=== PATIENT | female | born 1945 | race Caucasian/White ===

== ENCOUNTER 2021-01-26 14:10 | Inpatient (IN) | payer MEDICARE, OTHER ==
[~2021-01-26] VITALS: Ht 162.6 cm; Wt 41.7 kg
[2021-01-26] MEDS ORDERED: DIVA500T17 PO (15:45)
[2021-01-26] MEDS ORDERED: MEMA10TA PO (16:06)
[2021-01-26] MEDS ORDERED: PHEN100C PO (16:06)
[2021-01-26] MEDS ORDERED: LORA0.5T21 PO (16:06)
[2021-01-26] MEDS ORDERED: DONE10TA7 PO (16:06)
[2021-01-26] MEDS ORDERED: QUET25TA5 PO (16:06)
[2021-01-26] MEDS ORDERED: IBUP400T18 PO (16:06)
[2021-01-26] MEDS ORDERED: HYDR-2769 PO (16:06)
[2021-01-26] MEDS ORDERED: LORazepam 0.5 MG TABLET PO PRN (16:15)
[2021-01-26 16:26] VITALS: BP 131/78
[2021-01-26] MEDS ORDERED: MAG HYDROX/AL HYDROX/SIMETH 30 ML ORAL.SUSP PO PRN (16:30)
[2021-01-26] MEDS ORDERED: METHYL SALICYLATE/MENTHOL TOPICAL OINTMENT 57GM TUBE. TP PRN (16:30)
--- NOTE | 2021-01-26 17:06 | NUR ---
Admission Note with Justification for Admission to [facility] Patient admitted to [facility] for protective oversight for emergency stabilization of acute psychiatric crisis. Pt admitted from: LT Facility Mode of arrival: Secure Transport Accompanied By: EMS Precipitating behaviors that initiated intake and admission: combative, aggressive, not sleeping, verbally abusive, labile mood, wandering, hallucinations. Description of failure of out patient attempts at stabilization in previous setting list behavior and medication trials: Behaviors and assessment findings upon admission: Patient wandering, mumbling incoherent words, unable to be redirected. Plan: Admit for protective oversight for adjustment and stabilization of medications, behaviors and mood. Intense treatment regimen including groups, medication adjustments, therapy, consistent regimen for ADL's, self care, and sleep hygiene. Daily monitoring by Inpatient staff, Psychiatry, and Medical Physician.
[2021-01-26] MEDS: QUEtiapine 25 MG TABLET. PO SCH (19:43)
[2021-01-26] MEDS: DIVALPROEX 125 MG CAP.SPRINK PO SCH (19:44)
[2021-01-26] MEDS: PHENYTOIN SODIUM EXTENDED 100 MG CAPSULE PO SCH (19:44)
[2021-01-26] MEDS: ACETAMINOPHEN 325 MG TABLET PO PRN (19:58)
[2021-01-26] MEDS ORDERED: DIVALPROEX ER 250 MG TAB.ER.24H. PO SCH (21:00)
--- NOTE | 2021-01-26 21:56 | PDOC ---
Exam Note: Tristan Note: Please also refer to the separate dictated note~for this date of service dictated separately.~Patient seen individually. Discussed the patient with Nursing staff reviewed the chart.~Reviewed interim history and current functioning. Reviewed vital signs,~Labs/ Radiology~and current medications noted below. Continue current treatment with the changes noted in the dictated addendum note Assessment: Vital Signs/I&O: Vital Signs Date Time Temp Pulse Resp B/P (MAP) Pulse Ox O2 Delivery O2 Flow Rate FiO2 01/26/21 16:26 98.4 101 20 131/78 (95) 97 Room Air Current Medications: Meds: Current Medications Medications (Trade) Dose Ordered Sig/Rufus Route PRN Reason Start Time Stop Time Status Last Admin Dose Admin Lorazepam (Ativan) 0.5 mg PRN TID PRN PO ANXIETY 01/26/21 16:15 01/26/21 18:01 DC 01/26/21 17:50 Phenytoin Sodium (Dilantin) 100 mg QHS PO 01/26/21 21:00 01/26/21 19:44 Quetiapine Fumarate (SEROquel) 25 mg BID PO 01/26/21 21:00 01/26/21 19:43 Acetaminophen (Tylenol) 650 mg PRN Q6HRS PRN PO MILD PAIN / TEMP > 100.3'F 01/26/21 16:30 01/26/21 19:58 Divalproex Sodium (Depakote Sprinkles) 250 mg BID PO 01/26/21 21:00 01/26/21 19:44 I have reviewed the current psychotropics carefully including drug interactions. Risk benefit ratio favors no change other than as noted in my dictated progress note. Diagnosis: Problems: (1) Major neurocognitive disorder JOSE MIGUEL MCGOWAN MD Jan 26, 2021 21:56
--- NOTE | 2021-01-26 23:01 | NUR ---
Pt sitting in day room when approached. Pt confused, disorganized, and restless; at times tearful and crying. Pt able to express c/o headache for which PRN Tylenol administered. Pt cooperative with assessment and compliant with HS medications administered crushed in yogurt. Pt was sleeping in the day room and therefore staff escorted her to her room to lie down. Once laid down, pt restless and impulsive, standing without assist and trying to climb out of bed. Pt becoming agitated and verbally aggressive with re-direction. PRN Zydis administered and staff at bedside for safety at this time.
[2021-01-26] MEDS: HYDROcodone/APAP 10/325 1 TAB TABLET PO PRN (23:53)
[2021-01-27 06:15] VITALS: BP 118/64
[2021-01-27] MEDS: MEMANTINE 10 MG TABLET. PO SCH (08:35)
[2021-01-27] MEDS: DONEPEZIL HCL 10 MG TABLET PO SCH (08:35)
[2021-01-27] MEDS: DIVALPROEX 125 MG CAP.SPRINK PO SCH ×2 (08:35→19:55)
[2021-01-27] MEDS: QUEtiapine 25 MG TABLET. PO SCH ×2 (08:35→19:55)
--- NOTE | 2021-01-27 10:04 | NUR ---
Patient yelling and agitated during shower. patient given a prn to help calm her down. Patient willing to take medication crushed.
[2021-01-27 11:57] LABS: BASO % 1 % (0-3); EOS % 1 % (0-3); HEMATOCRIT 45.6 % (36.0-47.0); HEMOGLOBIN 14.8 g/dL (12.0-15.5); LYMPH # 0.9 x10^3/uL (1.0-4.8); LYMPH % 18 % (24-48); MEAN CORPUSCULAR HEMOGLOBIN 30 pg (25-35); MEAN CORPUSCULAR HGB CONC 32 g/dL (31-37); MEAN CORPUSCULAR VOLUME 94 fL (79-100); MONO # 0.4 x10^3/uL (0.0-1.1); MONO % 9 % (0-9); NEUT # 3.7 x10^3uL (1.8-7.7); NEUT % 72 % (31-73); PLATELET COUNT 209 x10^3/uL (140-400); RED BLOOD COUNT 4.86 x10^6/uL (3.50-5.40); RED CELL DISTRIBUTION WIDTH 15.4 % (11.5-14.5); WHITE BLOOD COUNT 5.2 x10^3/uL (4.0-11.0)
[2021-01-27 12:07] LABS: ALBUMIN 3.7 g/dL (3.4-5.0); CALCIUM 9.3 mg/dL (8.5-10.1); CREATININE 0.6 mg/dL (0.6-1.0); MAGNESIUM 2.5 mg/dL (1.8-2.4); POTASSIUM 3.9 mmol/L (3.5-5.1); TOTAL BILIRUBIN 0.3 mg/dL (0.2-1.0); TOTAL PROTEIN 7.4 g/dL (6.4-8.2)
[2021-01-27 15:57] VITALS: BP 107/62
--- NOTE | 2021-01-27 17:31 | HP ---
ADMIT DATE: 01/26/2021 PSYCHIATRIC ADMISSION HISTORY AND EVALUATION This late entry date of service 01/26/2021 covers elements not covered in my initial note. SUBJECTIVE: I met with the patient evening of 01/26/2021 for this evaluation, previously, discussed with Tabitha Vasquez, operating room coordinator and LUKE Guillermo to gather and review history received from [facility] where she was an inpatient to make a determination for inpatient criteria. IDENTIFYING DATA: The patient is a 75-year-old female referred to us from [facility] where she arrived from [facility] on account of worsening confusion, being combative, aggressive, not sleeping, verbally abusive with a marked lability of mood, wandering, eloping from the home. She was having active hallucinations, multiple falls and had fallen down the stairs multiple times. She had been at [facility] for residential care. She had failed outpatient psychiatric interventions. Behaviors persisted at [facility] and she was referred for inpatient psychiatric stabilization. CHIEF COMPLAINT: "We will go there." The patient is completely disorganized, oriented barely to herself, restless, anxious, constantly moving with marked mood lability. HISTORY OF PRESENT ILLNESS: The patient has a history of dementia, Alzheimer's vascular type. She has been residing initially at home and then for some time at [facility]. She has been more confused in the evening, anxious, restless, having sleep and appetite changes, psychotic symptoms, and mood lability. Behaviors have been deemed dangerous, unmanageable resulting in this referral. PAST PSYCHIATRIC HISTORY: As above. MEDICAL HISTORY: Positive for seizure disorder, status post urinary tract infection, metabolic encephalopathy, dysphagia, history of liposarcoma, history of shoulder dislocation, failure to thrive. ACCU-CHEKS: Not applicable. CODE STATUS: Full code. DRUG ALLERGIES: Negative. She has multiple falls. DIET: Regular. Takes medications crushed. Ambulates ad milad. UA negative on 01/22. CURRENT PSYCHOTROPICS: Depakote ER 250 b.i.d., Aricept 10 mg a day, Namenda 10 mg daily, Seroquel 25 mg b.i.d., Zyprexa was added post-admission to our unit 1.25 mg q. 2 hours, max 10 mg in 24 hours for psychosis, agitation. FAMILY HISTORY: Noncontributory. SOCIAL HISTORY: No history of alcohol, drug abuse, physical, sexual or elder abuse. She is not known to be a perpetrator. REACTION TO HOSPITALIZATION: The patient oblivious of this. is looking for placement for her. REVIEW OF SYSTEMS: No CV, , pulmonary, eye, ENT system symptoms on review. Reliability poor. MENTAL STATUS EXAMINATION: Oriented to herself. Insight, judgment, recent and remote memory, attention, concentration, fund of knowledge poor, consistent with diagnosis. IMPRESSION: Major neurocognitive disorder, Alzheimer, vascular with delusion, depression, behavioral disturbance; anxiety disorder, unspecified; impulse control disorder, unspecified. Rest as above. PLAN: Admit to Geropsychiatry Unit at [facility]. I will see the patient daily individually from a psychiatric standpoint. Medical followup with Dr. Romeo/Dr. Bolanos. Continue current psychotropics. Observe baseline. May change the Depakote ER to nightly dosage daily or change to Sprinkles. Consider SSRIs, may consider further adjustments in her atypical antipsychotics. ESTIMATED LENGTH OF STAY: 10-12 days. DISPOSITION: Plan is back to transition to senior living when stable. JOSE MIGUEL MCGOWAN MD DR: MARIA M/josh JOB#: [id number] / [id number]
[2021-01-27] MEDS: PHENYTOIN SODIUM EXTENDED 100 MG CAPSULE PO SCH (19:55)
[2021-01-27] MEDS: HYDROcodone/APAP 10/325 1 TAB TABLET PO PRN (21:53)
[2021-01-27 22:07] LABS: THYROID STIM HORMONE (TSH) 1.692 uIU/mL (0.358-3.740)
--- NOTE | 2021-01-27 22:07 | PDOC ---
Exam Note: Tristan Note: Please also refer to the separate dictated note~for this date of service dictated separately.~Patient seen individually. Discussed the patient with Nursing staff reviewed the chart.~Reviewed interim history and current functioning. Reviewed vital signs,~Labs/ Radiology~and current medications noted below. Continue current treatment with the changes noted in the dictated addendum note Assessment: Vital Signs/I&O: Vital Signs Date Time Temp Pulse Resp B/P (MAP) Pulse Ox O2 Delivery O2 Flow Rate FiO2 01/27/21 21:53 18 Room Air 01/27/21 15:57 97.4 90 107/62 (77) 97 I & O 01/26/21 01/26/21 01/27/21 15:00 23:00 07:00 Intake Total 720 ml Balance 720 ml Labs: Laboratory Tests Test 01/27/21 11:05 White Blood Count 5.2 x10^3/uL (4.0-11.0) Red Blood Count 4.86 x10^6/uL (3.50-5.40) Hemoglobin 14.8 g/dL (12.0-15.5) Hematocrit 45.6 % (36.0-47.0) Mean Corpuscular Volume 94 fL (79-100) Mean Corpuscular Hemoglobin 30 pg (25-35) Mean Corpuscular Hemoglobin Concent 32 g/dL (31-37) Red Cell Distribution Width 15.4 % (11.5-14.5) H Platelet Count 209 x10^3/uL (140-400) Neutrophils (%) (Auto) 72 % (31-73) Lymphocytes (%) (Auto) 18 % (24-48) L Monocytes (%) (Auto) 9 % (0-9) Eosinophils (%) (Auto) 1 % (0-3) Basophils (%) (Auto) 1 % (0-3) Neutrophils # (Auto) 3.7 x10^3uL (1.8-7.7) Lymphocytes # (Auto) 0.9 x10^3/uL (1.0-4.8) L Monocytes # (Auto) 0.4 x10^3/uL (0.0-1.1) Eosinophils # (Auto) 0.0 x10^3/uL (0.0-0.7) Basophils # (Auto) 0.0 x10^3/uL (0.0-0.2) D-Dimer (Mary) 1.09 mg/L (0.00-0.50) H Sodium Level 143 mmol/L (136-145) Potassium Level 3.9 mmol/L (3.5-5.1) Chloride Level 104 mmol/L (98-107) Carbon Dioxide Level 31 mmol/L (21-32) Anion Gap 8 (6-14) Blood Urea Nitrogen 21 mg/dL (7-20) H Creatinine 0.6 mg/dL (0.6-1.0) Estimated GFR (Cockcroft-Gault) 98.0 BUN/Creatinine Ratio 35 (6-20) H Glucose Level 78 mg/dL (70-99) Calcium Level 9.3 mg/dL (8.5-10.1) Magnesium Level 2.5 mg/dL (1.8-2.4) H Iron Level 165 ug/dL (50-170) Total Iron Binding Capacity 335 ug/dL (250-450) Iron Saturation 49 % (15-34) H Total Bilirubin 0.3 mg/dL (0.2-1.0) Aspartate Amino Transferase (AST) 30 U/L (15-37) Alanine Aminotransferase (ALT) 37 U/L (14-59) Alkaline Phosphatase 104 U/L (46-116) Total Protein 7.4 g/dL (6.4-8.2) Albumin 3.7 g/dL (3.4-5.0) Albumin/Globulin Ratio 1.0 (1.0-1.7) Current Medications: Meds: Laboratory Tests Test 01/27/21 11:05 White Blood Count 5.2 x10^3/uL Red Blood Count 4.86 x10^6/uL Hemoglobin 14.8 g/dL Hematocrit 45.6 % Mean Corpuscular Volume 94 fL Mean Corpuscular Hemoglobin 30 pg Mean Corpuscular Hemoglobin Concent 32 g/dL Red Cell Distribution Width 15.4 % Platelet Count 209 x10^3/uL Neutrophils (%) (Auto) 72 % Lymphocytes (%) (Auto) 18 % Monocytes (%) (Auto) 9 % Eosinophils (%) (Auto) 1 % Basophils (%) (Auto) 1 % Neutrophils # (Auto) 3.7 x10^3uL Lymphocytes # (Auto) 0.9 x10^3/uL Monocytes # (Auto) 0.4 x10^3/uL Eosinophils # (Auto) 0.0 x10^3/uL Basophils # (Auto) 0.0 x10^3/uL D-Dimer (Mary) 1.09 mg/L Sodium Level 143 mmol/L Potassium Level 3.9 mmol/L Chloride Level 104 mmol/L Carbon Dioxide Level 31 mmol/L Anion Gap 8 Blood Urea Nitrogen 21 mg/dL Creatinine 0.6 mg/dL Estimated GFR (Cockcroft-Gault) 98.0 BUN/Creatinine Ratio 35 Glucose Level 78 mg/dL Calcium Level 9.3 mg/dL Magnesium Level 2.5 mg/dL Iron Level 165 ug/dL Total Iron Binding Capacity 335 ug/dL Iron Saturation 49 % Total Bilirubin 0.3 mg/dL Aspartate Amino Transf (AST/SGOT) 30 U/L Alanine Aminotransferase (ALT/SGPT) 37 U/L Alkaline Phosphatase 104 U/L Total Protein 7.4 g/dL Albumin 3.7 g/dL Albumin/Globulin Ratio 1.0 Current Medications Medications (Trade) Dose Ordered Sig/Rufus Route PRN Reason Start Time Stop Time Status Last Admin Dose Admin Divalproex Sodium (Depakote Er) 250 mg BID PO 01/26/21 21:00 01/26/21 19:08 DC Donepezil HCl (Aricept) 10 mg DAILY PO 01/27/21 09:00 01/27/21 08:35 Acetaminophen/ Hydrocodone Bitart (Lortab 10/325) 1 tab PRN BID PRN PO MODERATE TO SEVERE PAIN 01/26/21 16:15 01/27/21 21:53 Lorazepam (Ativan) 0.5 mg PRN TID PRN PO ANXIETY 01/26/21 16:15 01/26/21 18:01 DC 01/26/21 17:50 Memantine (Namenda) 10 mg DAILY PO 01/27/21 09:00 01/27/21 08:35 Phenytoin Sodium (Dilantin) 100 mg QHS PO 01/26/21 21:00 01/31/21 23:00 01/27/21 19:55 Quetiapine Fumarate (SEROquel) 25 mg BID PO 01/26/21 21:00 01/27/21 19:55 Acetaminophen (Tylenol) 650 mg PRN Q6HRS PRN PO MILD PAIN / TEMP > 100.3'F 01/26/21 16:30 01/26/21 19:58 Multi-Ingredient Ointment (Analgesic [place]) 1 david PRN QID PRN TP MUSCLE PAIN 01/26/21 16:30 Al Hydroxide/Mg Hydroxide (Mylanta Plus Xs) 15 ml PRN AFTMEALHC PRN PO DYSPEPSIA 01/26/21 16:30 Magnesium Hydroxide (Milk Of Magnesia) 2,400 mg PRN QHS PRN PO CONSTIPATION 01/26/21 16:30 Olanzapine (ZyPREXA ZYDIS) 1.25 mg PRN Q2HR PRN PO PSYCHOSIS 01/26/21 18:00 01/27/21 09:54 Divalproex Sodium (Depakote Sprinkles) 250 mg BID PO 01/26/21 21:00 01/27/21 19:55 Current Medications Medications (Trade) Dose Ordered Sig/Rufus Route PRN Reason Start Time Stop Time Status Last Admin Dose Admin Donepezil HCl (Aricept) 10 mg DAILY PO 01/27/21 09:00 01/27/21 08:35 Memantine (Namenda) 10 mg DAILY PO 01/27/21 09:00 01/27/21 08:35 I have reviewed the current psychotropics carefully including drug interactions. Risk benefit ratio favors no change other than as noted in my dictated progress note. Diagnosis: Problems: (1) Dementia in Alzheimer's disease with depression (2) Dementia in Alzheimer's disease with delusions (3) Dementia of the Alzheimer's type with early onset with behavioral disturbance (4) Dementia, vascular, with delusions (5) Dementia, vascular, with depression (6) Anxiety disorder, unspecified (7) Impulse control disorder, unspecified (8) Major neurocognitive disorder JOSE MIGUEL MCGOWAN MD Jan 27, 2021 22:07
--- NOTE | 2021-01-27 23:01 | NUR ---
Nursing Note The patient was disorganized and restless while awake this shift. The patient took her medication crushed in pudding. The patient was alert to name only this shift. The patient was restless at HS and some facial grimacing was noted by this nurse during HS cares. The patient was given PRN Lortab per PRN order. The patient is currently awake laying in bed.
[2021-01-28 02:06] LABS: HEMOGLOBIN A1C 5.3 % (4.8-5.6)
[2021-01-28 05:06] LABS: THYROXINE 6.1 ug/dL (4.5-12.0)
[2021-01-28 06:33] VITALS: BP 117/56
--- NOTE | 2021-01-28 08:08 | PDOC ---
Exam Note: Tristan Note: This note is a late entry for 01/27/2021 covers elements not covered in my initial note. Subjective: The patient was seen individually in the evening of 01/27/2021 with Brice BUTLER, discussed and reviewed the chart. The patient slept 5-1/2 hours previous night. She is somewhat calmer. She remains confused but less anxious, agitated with cares. Review of Systems: No CV, , pulmonary, eye, ENT system symptoms on review. Reliability poor. Mental Status Exam: The patient is oriented to herself and situation. Insight and judgment, recent and remote memory, attention and concentration, fund of knowledge is poor consistent with her diagnoses. Laboratory Data: Reviewed. Impression: Major neurocognitive disorder Alzheimer vascular with delusion, depression, and behavioral disturbance. Anxiety disorder unspecified. Impulse control disorder unspecified. Plan: Continue rest of the psychotropics unchanged. We will follow her Depakot e with regular labs. Assessment: Vital Signs/I&O: Vital Signs Date Time Temp Pulse Resp B/P (MAP) Pulse Ox O2 Delivery O2 Flow Rate FiO2 01/28/21 06:33 96.4 82 18 117/56 (76) 97 01/27/21 23:21 Room Air I & O 01/27/21 01/27/21 01/28/21 15:00 23:00 07:00 Intake Total 480 ml 240 ml Balance 480 ml 240 ml Labs: Laboratory Tests Test 01/27/21 11:05 White Blood Count 5.2 x10^3/uL (4.0-11.0) Red Blood Count 4.86 x10^6/uL (3.50-5.40) Hemoglobin 14.8 g/dL (12.0-15.5) Hematocrit 45.6 % (36.0-47.0) Mean Corpuscular Volume 94 fL (79-100) Mean Corpuscular Hemoglobin 30 pg (25-35) Mean Corpuscular Hemoglobin Concent 32 g/dL (31-37) Red Cell Distribution Width 15.4 % (11.5-14.5) H Platelet Count 209 x10^3/uL (140-400) Neutrophils (%) (Auto) 72 % (31-73) Lymphocytes (%) (Auto) 18 % (24-48) L Monocytes (%) (Auto) 9 % (0-9) Eosinophils (%) (Auto) 1 % (0-3) Basophils (%) (Auto) 1 % (0-3) Neutrophils # (Auto) 3.7 x10^3uL (1.8-7.7) Lymphocytes # (Auto) 0.9 x10^3/uL (1.0-4.8) L Monocytes # (Auto) 0.4 x10^3/uL (0.0-1.1) Eosinophils # (Auto) 0.0 x10^3/uL (0.0-0.7) Basophils # (Auto) 0.0 x10^3/uL (0.0-0.2) D-Dimer (Mary) 1.09 mg/L (0.00-0.50) H Sodium Level 143 mmol/L (136-145) Potassium Level 3.9 mmol/L (3.5-5.1) Chloride Level 104 mmol/L (98-107) Carbon Dioxide Level 31 mmol/L (21-32) Anion Gap 8 (6-14) Blood Urea Nitrogen 21 mg/dL (7-20) H Creatinine 0.6 mg/dL (0.6-1.0) Estimated GFR (Cockcroft-Gault) 98.0 BUN/Creatinine Ratio 35 (6-20) H Glucose Level 78 mg/dL (70-99) Hemoglobin A1c 5.3 % (4.8-5.6) Calcium Level 9.3 mg/dL (8.5-10.1) Magnesium Level 2.5 mg/dL (1.8-2.4) H Iron Level 165 ug/dL (50-170) Total Iron Binding Capacity 335 ug/dL (250-450) Iron Saturation 49 % (15-34) H Total Bilirubin 0.3 mg/dL (0.2-1.0) Aspartate Amino Transferase (AST) 30 U/L (15-37) Alanine Aminotransferase (ALT) 37 U/L (14-59) Alkaline Phosphatase 104 U/L (46-116) Total Protein 7.4 g/dL (6.4-8.2) Albumin 3.7 g/dL (3.4-5.0) Albumin/Globulin Ratio 1.0 (1.0-1.7) Triglycerides Level 113 mg/dL (0-150) Cholesterol Level 228 mg/dL (0-200) H LDL Cholesterol, Calculated 102 mg/dL (0-100) H VLDL Cholesterol, Calculated 22 mg/dL (0-40) Non-HDL Cholesterol Calculated 124 mg/dL (0-129) HDL Cholesterol 104 mg/dL (40-60) H Cholesterol/HDL Ratio 2.0 Thyroid Stimulating Hormone (TSH) 1.692 uIU/mL (0.358-3.740) Thyroxine (T4) 6.1 ug/dL (4.5-12.0) Total Triiodothyronine (TT3) 90 ng/dL (71-180) Current Medications: Meds: Laboratory Tests Test 01/27/21 11:05 White Blood Count 5.2 x10^3/uL Red Blood Count 4.86 x10^6/uL Hemoglobin 14.8 g/dL Hematocrit 45.6 % Mean Corpuscular Volume 94 fL Mean Corpuscular Hemoglobin 30 pg Mean Corpuscular Hemoglobin Concent 32 g/dL Red Cell Distribution Width 15.4 % Platelet Count 209 x10^3/uL Neutrophils (%) (Auto) 72 % Lymphocytes (%) (Auto) 18 % Monocytes (%) (Auto) 9 % Eosinophils (%) (Auto) 1 % Basophils (%) (Auto) 1 % Neutrophils # (Auto) 3.7 x10^3uL Lymphocytes # (Auto) 0.9 x10^3/uL Monocytes # (Auto) 0.4 x10^3/uL Eosinophils # (Auto) 0.0 x10^3/uL Basophils # (Auto) 0.0 x10^3/uL D-Dimer (Mary) 1.09 mg/L Sodium Level 143 mmol/L Potassium Level 3.9 mmol/L Chloride Level 104 mmol/L Carbon Dioxide Level 31 mmol/L Anion Gap 8 Blood Urea Nitrogen 21 mg/dL Creatinine 0.6 mg/dL Estimated GFR (Cockcroft-Gault) 98.0 BUN/Creatinine Ratio 35 Glucose Level 78 mg/dL Hemoglobin A1c 5.3 % Calcium Level 9.3 mg/dL Magnesium Level 2.5 mg/dL Iron Level 165 ug/dL Total Iron Binding Capacity 335 ug/dL Iron Saturation 49 % Total Bilirubin 0.3 mg/dL Aspartate Amino Transf (AST/SGOT) 30 U/L Alanine Aminotransferase (ALT/SGPT) 37 U/L Alkaline Phosphatase 104 U/L Total Protein 7.4 g/dL Albumin 3.7 g/dL Albumin/Globulin Ratio 1.0 Triglycerides Level 113 mg/dL Cholesterol Level 228 mg/dL LDL Cholesterol, Calculated 102 mg/dL VLDL Cholesterol, Calculated 22 mg/dL Non-HDL Cholesterol Calculated 124 mg/dL HDL Cholesterol 104 mg/dL Cholesterol/HDL Ratio 2.0 Thyroid Stimulating Hormone (TSH) 1.692 uIU/mL Thyroxine (T4) 6.1 ug/dL Total Triiodothyronine 90 ng/dL Current Medications Medications (Trade) Dose Ordered Sig/Rufus Route PRN Reason Start Time Stop Time Status Last Admin Dose Admin Divalproex Sodium (Depakote Er) 250 mg BID PO 01/26/21 21:00 01/26/21 19:08 DC Donepezil HCl (Aricept) 10 mg DAILY PO 01/27/21 09:00 01/27/21 08:35 Acetaminophen/ Hydrocodone Bitart (Lortab 10/325) 1 tab PRN BID PRN PO MODERATE TO SEVERE PAIN 01/26/21 16:15 01/27/21 21:53 Lorazepam (Ativan) 0.5 mg PRN TID PRN PO ANXIETY 01/26/21 16:15 01/26/21 18:01 DC 01/26/21 17:50 Memantine (Namenda) 10 mg DAILY PO 01/27/21 09:00 01/27/21 08:35 Phenytoin Sodium (Dilantin) 100 mg QHS PO 01/26/21 21:00 01/31/21 23:00 01/27/21 19:55 Quetiapine Fumarate (SEROquel) 25 mg BID PO 01/26/21 21:00 01/27/21 19:55 Acetaminophen (Tylenol) 650 mg PRN Q6HRS PRN PO MILD PAIN / TEMP > 100.3'F 01/26/21 16:30 01/26/21 19:58 Multi-Ingredient Ointment (Analgesic [place]) 1 david PRN QID PRN TP MUSCLE PAIN 01/26/21 16:30 Al Hydroxide/Mg Hydroxide (Mylanta Plus Xs) 15 ml PRN AFTMEALHC PRN PO DYSPEPSIA 01/26/21 16:30 Magnesium Hydroxide (Milk Of Magnesia) 2,400 mg PRN QHS PRN PO CONSTIPATION 01/26/21 16:30 Olanzapine (ZyPREXA ZYDIS) 1.25 mg PRN Q2HR PRN PO PSYCHOSIS 01/26/21 18:00 01/27/21 09:54 Divalproex Sodium (Depakote Sprinkles) 250 mg BID PO 01/26/21 21:00 01/27/21 19:55 Current Medications Medications (Trade) Dose Ordered Sig/Rufus Route PRN Reason Start Time Stop Time Status Last Admin Dose Admin Donepezil HCl (Aricept) 10 mg DAILY PO 01/27/21 09:00 01/27/21 08:35 Memantine (Namenda) 10 mg DAILY PO 01/27/21 09:00 01/27/21 08:35 I have reviewed the current psychotropics carefully including drug interactions. Risk benefit ratio favors no change other than as noted in my dictated progress note. Diagnosis: Problems: (1) Major neurocognitive disorder (2) Impulse control disorder, unspecified (3) Anxiety disorder, unspecified (4) Dementia, vascular, with depression (5) Dementia, vascular, with delusions (6) Dementia in Alzheimer's disease with depression (7) Dementia in Alzheimer's disease with delusions (8) Dementia of the Alzheimer's type with early onset with behavioral disturbance JOSE MIGUEL MCGOWAN MD Jan 28, 2021 08:08
[2021-01-28] MEDS: DONEPEZIL HCL 10 MG TABLET PO SCH (09:44)
[2021-01-28] MEDS: DIVALPROEX 125 MG CAP.SPRINK PO SCH ×2 (09:44→20:14)
[2021-01-28] MEDS: MEMANTINE 10 MG TABLET. PO SCH (09:44)
[2021-01-28] MEDS: QUEtiapine 25 MG TABLET. PO SCH ×2 (09:44→20:14)
--- NOTE | 2021-01-28 14:15 | NUR ---
WEEKLY ACTIVITY THERAPY NOTE Date of Admission:01/26/21 Date of AT Assessment:TBD Precipitating behaviors that initiated intake and admission:combative, aggressive, not sleeping, verbally abusive, labile mood, wandering, hallucinations. Goal aimed: TBD Initial Goal: TBD Weekly progress towards goal: NA Group participation level: NA Weekly highlights: arrived on [facility] Behaviors observed: Plan: meet/assess pt Beneficial adaptations:
--- NOTE | 2021-01-28 15:00 | NUR ---
DEEPA attempted to meet with Jillian to introduce self and complete psychosocial assessment. Jillian is alert and oriented to self only. She is restless and wandered about the unit while SW talked with her. Jillian was unable to recall her last name and often speech was unrelated to topic at hand or question asked of her. Jillian became agitated when RADIOLOGY PRACTITIONER ASSISTANT's were assisting her with cares and she began to yell out and resist appearing to not understand staff were trying to help her. DEEPA left two messages for Miky, spouse, with intent to invite to listen to team meeting held this date and later to obtain history for completion of psychosocial. Awaiting return phone call as Jillian is unable to share recent or remote events about her past.
[2021-01-28 15:51] VITALS: BP 109/76
[2021-01-28] MEDS: HYDROcodone/APAP 10/325 1 TAB TABLET PO PRN (17:59)
--- NOTE | 2021-01-28 18:25 | NUR ---
Patient has not urinated this shift and has tenderness in the lower abdomen. Bladderscan reports >900mL. paged, new orders received. Patient catheterized, >1000mL urine collected. She did not tolerate procedure and was resistive throughout the procedure. Will continue to monitor and report to oncoming staff.
[2021-01-28 19:25] LABS: BACTERIA,URINE 0 /HPF (0-FEW); BILIRUBIN,URINE NEG (NEG); CLARITY,URINE CLEAR; COLOR,URINE YELLOW; GLUCOSE,URINE NEG (NEG); NITRITE,URINE NEG (NEG); RBC,URINE 0 /HPF (0-2); SQUAMOUS EPITHELIAL CELL,UR OCC /LPF; UROBILINOGEN,URINE 0.2 mg/dL (0.2 mg/dL)
[2021-01-28] MEDS: PHENYTOIN SODIUM EXTENDED 100 MG CAPSULE PO SCH (20:14)
--- NOTE | 2021-01-28 21:58 | PDOC ---
Exam Note: Tristan Note: Please also refer to the separate dictated note~for this date of service dictated separately.~Patient seen individually. Discussed the patient with Nursing staff reviewed the chart.~Reviewed interim history and current functioning. Reviewed vital signs,~Labs/ Radiology~and current medications noted below. Continue current treatment with the changes noted in the dictated addendum note Assessment: Vital Signs/I&O: Vital Signs Date Time Temp Pulse Resp B/P (MAP) Pulse Ox O2 Delivery O2 Flow Rate FiO2 01/28/21 19:00 18 Room Air 01/28/21 17:59 97 01/28/21 15:51 97.3 86 109/76 (87) I & O 01/27/21 01/27/21 01/28/21 15:00 23:00 07:00 Intake Total 480 ml 240 ml Balance 480 ml 240 ml Labs: Laboratory Tests Test 01/28/21 18:45 Urine Collection Type Unknown Urine Color Yellow Urine Clarity Clear Urine pH 6.5 Urine Specific [place] 1.020 Urine Protein Neg (NEG-TRACE) Urine Glucose (UA) Neg mg/dL (NEG) Urine Ketones (Stick) Neg mg/dL (NEG) Urine Blood Neg (NEG) Urine Nitrite Neg (NEG) Urine Bilirubin Neg (NEG) Urine Urobilinogen Dipstick 0.2 mg/dL (0.2 mg/dL) Urine Leukocyte Esterase Neg (NEG) Urine RBC 0 /HPF (0-2) Urine WBC 1-4 /HPF (0-4) Urine Squamous Epithelial Cells Occ /LPF Urine Bacteria 0 /HPF (0-FEW) Current Medications: Meds: Laboratory Tests Test 01/28/21 18:45 Urine Collection Type Unknown Urine Color Yellow Urine Clarity Clear Urine pH 6.5 Urine Specific [place] 1.020 Urine Protein Neg Urine Glucose (UA) Neg mg/dL Urine Ketones (Stick) Neg mg/dL Urine Blood Neg Urine Nitrite Neg Urine Bilirubin Neg Urine Urobilinogen Dipstick 0.2 mg/dL Urine Leukocyte Esterase Neg Urine RBC 0 /HPF Urine WBC 1-4 /HPF Urine Squamous Epithelial Cells Occ /LPF Urine Bacteria 0 /HPF Current Medications Medications (Trade) Dose Ordered Sig/Rufus Route PRN Reason Start Time Stop Time Status Last Admin Dose Admin Divalproex Sodium (Depakote Er) 250 mg BID PO 01/26/21 21:00 01/26/21 19:08 DC Donepezil HCl (Aricept) 10 mg DAILY PO 01/27/21 09:00 01/28/21 09:44 Acetaminophen/ Hydrocodone Bitart (Lortab 10/325) 1 tab PRN BID PRN PO MODERATE TO SEVERE PAIN 01/26/21 16:15 01/28/21 17:59 Lorazepam (Ativan) 0.5 mg PRN TID PRN PO ANXIETY 01/26/21 16:15 01/26/21 18:01 DC 01/26/21 17:50 Memantine (Namenda) 10 mg DAILY PO 01/27/21 09:00 01/28/21 09:44 Phenytoin Sodium (Dilantin) 100 mg QHS PO 01/26/21 21:00 01/31/21 23:00 01/28/21 20:14 Quetiapine Fumarate (SEROquel) 25 mg BID PO 01/26/21 21:00 01/28/21 20:14 Acetaminophen (Tylenol) 650 mg PRN Q6HRS PRN PO MILD PAIN / TEMP > 100.3'F 01/26/21 16:30 01/26/21 19:58 Multi-Ingredient Ointment (Analgesic [place]) 1 david PRN QID PRN TP MUSCLE PAIN 01/26/21 16:30 Al Hydroxide/Mg Hydroxide (Mylanta Plus Xs) 15 ml PRN AFTMEALHC PRN PO DYSPEPSIA 01/26/21 16:30 Magnesium Hydroxide (Milk Of Magnesia) 2,400 mg PRN QHS PRN PO CONSTIPATION 01/26/21 16:30 Olanzapine (ZyPREXA ZYDIS) 1.25 mg PRN Q2HR PRN PO PSYCHOSIS 01/26/21 18:00 01/28/21 17:59 Divalproex Sodium (Depakote Sprinkles) 250 mg BID PO 01/26/21 21:00 01/28/21 20:14 I have reviewed the current psychotropics carefully including drug interactions. Risk benefit ratio favors no change other than as noted in my dictated progress note. Diagnosis: Problems: (1) Major neurocognitive disorder (2) Impulse control disorder, unspecified (3) Anxiety disorder, unspecified (4) Dementia, vascular, with depression (5) Dementia, vascular, with delusions (6) Dementia in Alzheimer's disease with depression (7) Dementia in Alzheimer's disease with delusions (8) Dementia of the Alzheimer's type with early onset with behavioral disturbance JOSE MIGUEL MCGOWAN MD Jan 28, 2021 21:58
--- NOTE | 2021-01-28 23:12 | NUR ---
Nursing Note The patient was restless and disorganized this shift. The patient wandered the halls and was intrusive with other patients. The patient was redirectable. The patient was unable to respond appropriately to any of her assessment questions. The patient took her medication crushed in pudding. The patient was agitated and becoming aggressive @HS and was given PRN Zyprexa per PRN order. The patient is currently sleeping in her room.
[2021-01-29] MEDS: traZODone 50 MG TABLET. PO PRN ×3 (00:22→22:12)
[2021-01-29 06:29] VITALS: BP 109/67
[2021-01-29] MEDS: MEMANTINE 10 MG TABLET. PO SCH (08:41)
[2021-01-29] MEDS: QUEtiapine 25 MG TABLET. PO SCH ×2 (08:41→19:29)
[2021-01-29] MEDS: DIVALPROEX 125 MG CAP.SPRINK PO SCH ×2 (08:42→20:26)
[2021-01-29] MEDS: DONEPEZIL HCL 10 MG TABLET PO SCH (08:42)
--- NOTE | 2021-01-29 12:04 | TX PLAN ---
Interdisciplinary Tx Plan Admission Information Jan 26, 2021 at 16:12 Legal Status (on Admission): Voluntary, DPOA DPOA/Guardian Name: Miky Denise- Contact Verified Code Status: Full Code Allergies: Coded Allergies: No Known Drug Allergies (Unverified , 01/26/21) Estimated Length of Stay: 14 Diagnoses Primary Diagnosis: Dementia with behavioral disturbance Reasons for Admission: Aggressive, Agitated, Sig. Change Sleep, Hallucinations Problem in Patient's Words: Jillian is oriented only to herself with the inability to recall recent or remote events from her past. Per conversation with spouse at time of intake, Jillian has become aggresive/combative which makes caring for her challenging. Jillian was also reported to have fallen down the stairs in her home multiple times and eloped from their home requiring police assitance to locate her. Problems Active Problems: Combative, aggressive insomnia verbally abusive, yelling out resisits care labile mood wandering and door checking hallucinating Inactive Problems: medication compliant Pt Strengths/Limitations Ability for [place]: Poor Cognitive Functioning/Ability: Poor Communication Skills/Ability: Poor Financial Resources: Fair Insight/Judgement: Poor Intellectual Ability: Fair Physical Health: Fair Social Skills: Poor Stability in Family: Fair Verbal Skills: Poor Discharge Criteria Discharge Criteria: Adequate arrangements @DC, Improved behavior, Improved mo od/thought Preliminary Discharge Plan Preliminary DC Plan: Placement Needed, Memory Care Special Precautions Special Precautions: Agitation/Assault Fall Risk: High Initial D/C Plan Jillian spouse has expressed desire fore Jillian to return home. For safety reasons, it has been recommended that Jillian be placed in memory care. Identified Discharge Needs: Placement Identified Problems/Hx/Goals Objectives/Short-Term Goals Short Term Goals: Dec. Aggression, Dec. Anxiety/Panic, Dec. Hallucination/Delus, Medication Stabilization, Monitor Med Effects Short Term Goals in Patient's: Jillian is unable to establish goals. Per spouse at time of intake, mood and behavior stabilization in order to easier care for Jillian. Interventions/Frequency Staff Interventions/Frequency&: Nursing to provide routine safety checks, medication administration, and adl support. Psychiatrist to see three times weekly. SW to see twice weekly. 1:1 visits from recreational therapy to provide socialization. History Vocational History: Unknown Social: Unknown Education: Unknown Community Follow-up Placement needed, f/u with PCP and out patient psychiatry Community Provider/Family Inpu: Treatment team meeting was held on 01/28/21. SW had left message for spouse/POA with invite to particiapte in team meeting via phone. SW recieved voice message from spouse on 01/29/21 indicating he was not well and was considering going to the [place] ER. SW has been unable to reach spouse at this time. entry level machine operator of treatment plan was completed on 01/29/21. Treatment Plan Explained Patient/Brick Maker had this treatment plan explained to him/her as indicated by the signature below and has been given the opportunity to ask questions and make suggestions: Date: Patient/Brick Maker Signature: ALEXANDRA PAUL Jan 29, 2021 12:04
--- NOTE | 2021-01-29 12:05 | NUR ---
DEEPA received phone message from Miky, spouse/POA, upon arrival to office this morning. Miky stated he was under the weather at his home and was considering going to the [place] ER and would be back in touch with DEEPA once feeling better. DEEPA left additional phone message for Miky this date to inquire about his condition. DEEPA requested return phone call.
--- NOTE | 2021-01-29 12:50 | NUR ---
ACTIVITY THERAPY ASSESSMENT completed based on notes, observation and interview. Pt was wandering in the hallway during time of assessment and began to shake on door handles. Pt was unable to answer any of the assessment questions. Pt has been reported to yell and become agitated with cares. Pt has been reported to be restless and intrusive. Pt is unable to recall any facts or details and is unable to express needs. Initial goal aimed to increase relaxation and sensory stimulation. Pt will participate in at least three individual or group Activity Therapy sessions before discharge.
--- NOTE | 2021-01-29 13:53 | NUR ---
patient has been restless, labile, wandering, and door-checking this shift. She was resistive with shower. CNAs report she has voided a scant amount. Patient compliant with meds crushed in pudding. Will continue to monitor and report to oncoming shift.
[2021-01-29] MEDS: HYDROcodone/APAP 10/325 1 TAB TABLET PO PRN (15:56)
--- NOTE | 2021-01-29 16:09 | NUR ---
Patient complaining of pain 'all over' and stated her hair was killing her. Attempted to provide prn medication per eMAR, patient spat out the crushed pill in her water cup. Win another pill from the omnicell, crushed and provided it to patient in cranberry juice which she drank. Will continue to monitor and report to oncoming staff.
[2021-01-29] MEDS: PHENYTOIN SODIUM EXTENDED 100 MG CAPSULE PO SCH (20:26)
--- NOTE | 2021-01-29 21:50 | PDOC ---
Exam Note: Tristan Note: Please also refer to the separate dictated note~for this date of service dictated separately.~Patient seen individually. Discussed the patient with Nursing staff reviewed the chart.~Reviewed interim history and current functioning. Reviewed vital signs,~Labs/ Radiology~and current medications noted below. Continue current treatment with the changes noted in the dictated addendum note Assessment: Vital Signs/I&O: Vital Signs Date Time Temp Pulse Resp B/P (MAP) Pulse Ox O2 Delivery O2 Flow Rate FiO2 01/29/21 17:00 16 97 Room Air 01/29/21 06:29 97.6 89 109/67 (81) I & O 01/28/21 01/28/21 01/29/21 15:00 23:00 07:00 Intake Total 600 ml 480 ml Output Total 1400 ml Balance 600 ml -920 ml Current Medications: Meds: Current Medications Medications (Trade) Dose Ordered Sig/Rufus Route PRN Reason Start Time Stop Time Status Last Admin Dose Admin Divalproex Sodium (Depakote Er) 250 mg BID PO 01/26/21 21:00 01/26/21 19:08 DC Donepezil HCl (Aricept) 10 mg DAILY PO 01/27/21 09:00 01/29/21 18:45 DC 01/29/21 08:42 Acetaminophen/ Hydrocodone Bitart (Lortab 10/325) 1 tab PRN BID PRN PO MODERATE TO SEVERE PAIN 01/26/21 16:15 01/29/21 15:56 Lorazepam (Ativan) 0.5 mg PRN TID PRN PO ANXIETY 01/26/21 16:15 01/26/21 18:01 DC 01/26/21 17:50 Memantine (Namenda) 10 mg DAILY PO 01/27/21 09:00 01/29/21 18:45 DC 01/29/21 08:41 Phenytoin Sodium (Dilantin) 100 mg QHS PO 01/26/21 21:00 01/31/21 23:00 01/29/21 20:26 Quetiapine Fumarate (SEROquel) 25 mg BID PO 01/26/21 21:00 01/29/21 18:45 DC 01/29/21 08:41 Acetaminophen (Tylenol) 650 mg PRN Q6HRS PRN PO MILD PAIN / TEMP > 100.3'F 01/26/21 16:30 01/26/21 19:58 Multi-Ingredient Ointment (Analgesic [place]) 1 david PRN QID PRN TP MUSCLE PAIN 01/26/21 16:30 Al Hydroxide/Mg Hydroxide (Mylanta Plus Xs) 15 ml PRN AFTMEALHC PRN PO DYSPEPSIA 01/26/21 16:30 Magnesium Hydroxide (Milk Of Magnesia) 2,400 mg PRN QHS PRN PO CONSTIPATION 01/26/21 16:30 Olanzapine (ZyPREXA ZYDIS) 1.25 mg PRN Q2HR PRN PO PSYCHOSIS 01/26/21 18:00 01/28/21 23:35 DC 01/28/21 22:02 Divalproex Sodium (Depakote Sprinkles) 250 mg BID PO 01/26/21 21:00 01/29/21 20:26 Olanzapine (ZyPREXA ZYDIS) 2.5 mg PRN Q2HR PRN PO PSYCHOSIS 01/28/21 23:45 Trazodone HCl (Desyrel) 50 mg PRN QHS PRN PO INSOMNIA, MAY REPEAT X1 01/28/21 23:45 01/29/21 20:26 Quetiapine Fumarate (SEROquel) 25 mg 0900,1300,1700 PO 01/29/21 19:00 01/29/21 19:29 Sertraline HCl (Zoloft) 25 mg DAILY PO 01/30/21 09:00 Current Medications Medications (Trade) Dose Ordered Sig/Rufus Route PRN Reason Start Time Stop Time Status Last Admin Dose Admin Trazodone HCl (Desyrel) 50 mg PRN QHS PRN PO INSOMNIA, MAY REPEAT X1 01/28/21 23:45 01/29/21 20:26 Quetiapine Fumarate (SEROquel) 25 mg 0900,1300,1700 PO 01/29/21 19:00 01/29/21 19:29 I have reviewed the current psychotropics carefully including drug interactions. Risk benefit ratio favors no change other than as noted in my dictated progress note. Diagnosis: Problems: (1) Major neurocognitive disorder (2) Impulse control disorder, unspecified (3) Anxiety disorder, unspecified (4) Dementia, vascular, with depression (5) Dementia, vascular, with delusions (6) Dementia in Alzheimer's disease with depression (7) Dementia in Alzheimer's disease with delusions (8) Dementia of the Alzheimer's type with early onset with behavioral dis turbance JOSE MIGUEL MCGOWAN MD Jan 29, 2021 21:50
--- NOTE | 2021-01-29 23:50 | NUR ---
Nursing Note The patient was located in the day room and hallways for her assessment and medication pass. The patient was compliant with her medication and took them crushed in pudding. The patient was unable to answer assessment questions but responds to name. The patient was noted to have a distended and firm abdomen. Bladder scan showed >400ml in her bladder. This nurse catheterized the patient and retrieved 450 ml of urine. The patient received PRN Trazodone prior to HS and received her repeat dose after being catheterized. The patient is currently sleeping in her room.
[2021-01-30] MEDS: HYDROcodone/APAP 10/325 1 TAB TABLET PO PRN ×2 (00:10→10:52)
[2021-01-30 05:51] VITALS: BP 104/70
--- NOTE | 2021-01-30 06:41 | PDOC ---
Exam Note: Tristan Note: This note is a late entry for 01/28/2021 covers elements not covered in my initial note. Subjective: The patient was reviewed in the morning of 01/28/2021 for a treatment team meeting with Tabitha Lee, Tory Becerra and Anastasia (long term care social worker), Mariel, activity therapy and Eagle BUTLER, discussed and reviewed the chart. The patient slept 8 hours previous night. We had very lengthy discussion about her history. wanting her back home but she is extremely confused, had been walking away from home. Also discussed with Christiano BUTLER in the evening. Patient had some urinary retention, 900 mL removed via catheter. We will defer to Dr. Romeo. Review of Systems: No CV, , pulmonary, eye, ENT system symptoms on review. Reliability poor. Mental Status Exam: The patient is oriented to herself and situation. Insight and judgment, recent and remote memory, attention and concentration, fund of knowledge is poor consistent with her diagnoses. Laboratory Data: Reviewed. Impression: Major neurocognitive disorder Alzheimer vascular with delusion, depression, and behavioral disturbance. Anxiety disorder unspecified. Impulse control disorder unspecified. Plan: Continue rest of the psychotropics unchanged. Make further adjustments as clinically indicated. We may consider stopping Namenda and Aricept. Assessment: Vital Signs/I&O: Vital Signs Date Time Temp Pulse Resp B/P (MAP) Pulse Ox O2 Delivery O2 Flow Rate FiO2 01/30/21 05:51 97.2 86 18 104/70 (81) 99 Room Air I & O 01/29/21 01/29/21 01/30/21 15:00 23:00 07:00 Intake Total 1200 ml 360 ml 120 ml Output Total 900 ml Balance 1200 ml 360 ml -780 ml Current Medications: Meds: Current Medications Medications (Trade) Dose Ordered Sig/Rufus Route PRN Reason Start Time Stop Time Status Last Admin Dose Admin Divalproex Sodium (Depakote Er) 250 mg BID PO 01/26/21 21:00 01/26/21 19:08 DC Donepezil HCl (Aricept) 10 mg DAILY PO 01/27/21 09:00 01/29/21 18:45 DC 01/29/21 08:42 Acetaminophen/ Hydrocodone Bitart (Lortab 10/325) 1 tab PRN BID PRN PO MODERATE TO SEVERE PAIN 01/26/21 16:15 4/28/21 00:10 Lorazepam (Ativan) 0.5 mg PRN TID PRN PO ANXIETY 01/26/21 16:15 01/26/21 18:01 DC 01/26/21 17:50 Memantine (Namenda) 10 mg DAILY PO 01/27/21 09:00 01/29/21 18:45 DC 01/29/21 08:41 Phenytoin Sodium (Dilantin) 100 mg QHS PO 01/26/21 21:00 01/31/21 23:00 01/29/21 20:26 Quetiapine Fumarate (SEROquel) 25 mg BID PO 01/26/21 21:00 01/29/21 18:45 DC 01/29/21 08:41 Acetaminophen (Tylenol) 650 mg PRN Q6HRS PRN PO MILD PAIN / TEMP > 100.3'F 01/26/21 16:30 01/26/21 19:58 Multi-Ingredient Ointment (Analgesic [place]) 1 david PRN QID PRN TP MUSCLE PAIN 01/26/21 16:30 Al Hydroxide/Mg Hydroxide (Mylanta Plus Xs) 15 ml PRN AFTMEALHC PRN PO DYSPEPSIA 01/26/21 16:30 Magnesium Hydroxide (Milk Of Magnesia) 2,400 mg PRN QHS PRN PO CONSTIPATION 01/26/21 16:30 Olanzapine (ZyPREXA ZYDIS) 1.25 mg PRN Q2HR PRN PO PSYCHOSIS 01/26/21 18:00 01/28/21 23:35 DC 01/28/21 22:02 Divalproex Sodium (Depakote Sprinkles) 250 mg BID PO 01/26/21 21:00 01/29/21 20:26 Olanzapine (ZyPREXA ZYDIS) 2.5 mg PRN Q2HR PRN PO PSYCHOSIS 01/28/21 23:45 Trazodone HCl (Desyrel) 50 mg PRN QHS PRN PO INSOMNIA, MAY REPEAT X1 01/28/21 23:45 01/29/21 22:12 Quetiapine Fumarate (SEROquel) 25 mg 0900,1300,1700 PO 01/29/21 19:00 01/29/21 19:29 Sertraline HCl (Zoloft) 25 mg DAILY PO 01/30/21 09:00 Current Medications Medications (Trade) Dose Ordered Sig/Rufus Route PRN Reason Start Time Stop Time Status Last Admin Dose Admin Quetiapine Fumarate (SEROquel) 25 mg 0900,1300,1700 PO 01/29/21 19:00 01/29/21 19:29 I have reviewed the current psychotropics carefully including drug interactions. Risk benefit ratio favors no change other than as noted in my dictated progress note. Diagnosis: Problems: (1) Major neurocognitive disorder (2) Impulse control disorder, unspecified (3) Anxiety disorder, unspecified (4) Dementia, vascular, with depression (5) Dementia, vascular, with delusions (6) Dementia in Alzheimer's disease with depression (7) Dementia in Alzheimer's disease with delusions (8) Dementia of the Alzheimer's type with early onset with behavioral disturbance JOSE MIGUEL MCGOWAN MD Jan 30, 2021 06:41
--- NOTE | 2021-01-30 07:22 | PDOC ---
Exam Note: Tristan Note: This note is a late entry for 01/29/2021 covers elements not covered in my initial note. Subjective: The patient was seen individually in the evening of 01/29/2021 with Eagle BUTLER, discussed and reviewed the chart. The patient slept 5-3/4 hours previous night. She has been anxious, restless, wandering, confused, irritable, labile in her mood, yelling at times. Review of Systems: No CV, , pulmonary, eye, ENT system symptoms on review. Reliability poor. Mental Status Exam: The patient is oriented to herself and situation. Insight and judgment, recent and remote memory, attention and concentration, fund of knowledge is poor consistent with her diagnoses. Laboratory Data: Reviewed. Impression: Major neurocognitive disorder Alzheimer vascular with delusion, depression, and behavioral disturbance. Anxiety disorder unspecified. Impulse control disorder unspecified. Plan: Given the extent of her dementia, Aricept and Namenda probably have little therapeutic value and we will stop it and start Zoloft 25 mg a day for her mood and anxiety symptoms. Increase Seroquel to 25 mg mg 9 a.m., 1 p.m. and 5 p.m. Rest unchanged for now. Assessment: Vital Signs/I&O: Vital Signs Date Time Temp Pulse Resp B/P (MAP) Pulse Ox O2 Delivery O2 Flow Rate FiO2 01/30/21 05:51 97.2 86 18 104/70 (81) 99 Room Air I & O 01/29/21 01/29/21 01/30/21 15:00 23:00 07:00 Intake Total 1200 ml 360 ml 120 ml Output Total 900 ml Balance 1200 ml 360 ml -780 ml Current Medications: Meds: Current Medications Medications (Trade) Dose Ordered Sig/Rufus Route PRN Reason Start Time Stop Time Status Last Admin Dose Admin Divalproex Sodium (Depakote Er) 250 mg BID PO 01/26/21 21:00 01/26/21 19:08 DC Donepezil HCl (Aricept) 10 mg DAILY PO 01/27/21 09:00 01/29/21 18:45 DC 01/29/21 08:42 Acetaminophen/ Hydrocodone Bitart (Lortab 10/325) 1 tab PRN BID PRN PO MODERATE TO SEVERE PAIN 01/26/21 16:15 01/30/21 00:10 Lorazepam (Ativan) 0.5 mg PRN TID PRN PO ANXIETY 01/26/21 16:15 01/26/21 18:01 DC 01/26/21 17:50 Memantine (Namenda) 10 mg DAILY PO 01/27/21 09:00 01/29/21 18:45 DC 01/29/21 08:41 Phenytoin Sodium (Dilantin) 100 mg QHS PO 01/26/21 21:00 01/31/21 23:00 01/29/21 20:26 Quetiapine Fumarate (SEROquel) 25 mg BID PO 01/26/21 21:00 01/29/21 18:45 DC 01/29/21 08:41 Acetaminophen (Tylenol) 650 mg PRN Q6HRS PRN PO MILD PAIN / TEMP > 100.3'F 01/26/21 16:30 01/26/21 19:58 Multi-Ingredient Ointment (Analgesic [place]) 1 david PRN QID PRN TP MUSCLE PAIN 01/26/21 16:30 Al Hydroxide/Mg Hydroxide (Mylanta Plus Xs) 15 ml PRN AFTMEALHC PRN PO DYSPEPSIA 01/26/21 16:30 Magnesium Hydroxide (Milk Of Magnesia) 2,400 mg PRN QHS PRN PO CONSTIPATION 01/26/21 16:30 Olanzapine (ZyPREXA ZYDIS) 1.25 mg PRN Q2HR PRN PO PSYCHOSIS 01/26/21 18:00 01/28/21 23:35 DC 01/28/21 22:02 Divalproex Sodium (Depakote Sprinkles) 250 mg BID PO 01/26/21 21:00 01/29/21 20:26 Olanzapine (ZyPREXA ZYDIS) 2.5 mg PRN Q2HR PRN PO PSYCHOSIS 01/28/21 23:45 Trazodone HCl (Desyrel) 50 mg PRN QHS PRN PO INSOMNIA, MAY REPEAT X1 01/28/21 23:45 01/29/21 22:12 Quetiapine Fumarate (SEROquel) 25 mg 0900,1300,1700 PO 01/29/21 19:00 01/29/21 19:29 Sertraline HCl (Zoloft) 25 mg DAILY PO 01/30/21 09:00 Current Medications Medications (Trade) Dose Ordered Sig/Rufus Route PRN Reason Start Time Stop Time Status Last Admin Dose Admin Quetiapine Fumarate (SEROquel) 25 mg 0900,1300,1700 PO 01/29/21 19:00 01/29/21 19:29 I have reviewed the current psychotropics carefully including drug interactions. Risk benefit ratio favors no change other than as noted in my dictated progress note. Diagnosis: Problems: (1) Major neurocognitive disorder (2) Impulse control disorder, unspecified (3) Anxiety disorder, unspecified (4) Dementia, vascular, with depression (5) Dementia, vascular, with delusions (6) Dementia in Alzheimer's disease with depression (7) Dementia in Alzheimer's disease with delusions (8) Dementia of the Alzheimer's type with early onset with behavioral disturbance JOSE MIGUEL MCGOWAN MD Jan 30, 2021 07:22
[2021-01-30] MEDS: SERTRALINE 25 MG TABLET. PO SCH (08:13)
[2021-01-30] MEDS: DIVALPROEX 125 MG CAP.SPRINK PO SCH ×2 (08:13→21:11)
[2021-01-30] MEDS: QUEtiapine 25 MG TABLET. PO SCH ×3 (08:13→17:25)
[2021-01-30 15:59] VITALS: BP 93/71
[2021-01-30] MEDS: CHOLECALCIFEROL (VITAMIN D3) 50,000 UNIT CAPSULE PO SCH (17:25)
--- NOTE | 2021-01-30 19:30 | NUR ---
Patient has been restless, labile, wandering, exit seeking, and door checking through out this shift. In the morning, she started to scream repeatedly while pushing a peer in her wheelchair against her will; prn medications provided per eMAR. Patient was calmer after lunch and took a nap, then after dinner she was extremely labile, going between screaming angrily and being tearful. PRN medication provided per eMAR, will continue to monitor and report to oncoming shift.
[2021-01-30] MEDS: PHENYTOIN SODIUM EXTENDED 100 MG CAPSULE PO SCH (21:12)
--- NOTE | 2021-01-30 22:00 | PDOC ---
Exam Note: Tristan Note: Please also refer to the separate dictated note~for this date of service dictated separately.~Patient seen individually. Discussed the patient with Nursing staff reviewed the chart.~Reviewed interim history and current functioning. Reviewed vital signs,~Labs/ Radiology~and current medications noted below. Continue current treatment with the changes noted in the dictated addendum note Assessment: Vital Signs/I&O: Vital Signs Date Time Temp Pulse Resp B/P (MAP) Pulse Ox O2 Delivery O2 Flow Rate FiO2 01/30/21 15:59 97.5 89 16 93/71 (78) 95 01/30/21 11:55 Room Air I & O 01/29/21 01/29/21 01/30/21 15:00 23:00 07:00 Intake Total 1200 ml 360 ml 120 ml Output Total 900 ml Balance 1200 ml 360 ml -780 ml Current Medications: Meds: Current Medications Medications (Trade) Dose Ordered Sig/Rufus Route PRN Reason Start Time Stop Time Status Last Admin Dose Admin Divalproex Sodium (Depakote Er) 250 mg BID PO 01/26/21 21:00 01/26/21 19:08 DC Donepezil HCl (Aricept) 10 mg DAILY PO 01/27/21 09:00 01/29/21 18:45 DC 01/29/21 08:42 Acetaminophen/ Hydrocodone Bitart (Lortab 10/325) 1 tab PRN BID PRN PO MODERATE TO SEVERE PAIN 01/26/21 16:15 01/30/21 10:52 Lorazepam (Ativan) 0.5 mg PRN TID PRN PO ANXIETY 01/26/21 16:15 01/26/21 18:01 DC 01/26/21 17:50 Memantine (Namenda) 10 mg DAILY PO 01/27/21 09:00 01/29/21 18:45 DC 01/29/21 08:41 Phenytoin Sodium (Dilantin) 100 mg QHS PO 01/26/21 21:00 01/31/21 23:00 01/30/21 21:12 Quetiapine Fumarate (SEROquel) 25 mg BID PO 01/26/21 21:00 01/29/21 18:45 DC 01/29/21 08:41 Acetaminophen (Tylenol) 650 mg PRN Q6HRS PRN PO MILD PAIN / TEMP > 100.3'F 01/26/21 16:30 01/26/21 19:58 Multi-Ingredient Ointment (Analgesic [place]) 1 david PRN QID PRN TP MUSCLE PAIN 01/26/21 16:30 Al Hydroxide/Mg Hydroxide (Mylanta Plus Xs) 15 ml PRN AFTMEALHC PRN PO DYSPEPSIA 01/26/21 16:30 Magnesium Hydroxide (Milk Of Magnesia) 2,400 mg PRN QHS PRN PO CONSTIPATION 01/26/21 16:30 Olanzapine (ZyPREXA ZYDIS) 1.25 mg PRN Q2HR PRN PO PSYCHOSIS 01/26/21 18:00 01/28/21 23:35 DC 01/28/21 22:02 Divalproex Sodium (Depakote Sprinkles) 250 mg BID PO 01/26/21 21:00 01/30/21 21:11 Olanzapine (ZyPREXA ZYDIS) 2.5 mg PRN Q2HR PRN PO PSYCHOSIS 01/28/21 23:45 01/30/21 18:37 Trazodone HCl (Desyrel) 50 mg PRN QHS PRN PO INSOMNIA, MAY REPEAT X1 01/28/21 23:45 01/29/21 22:12 Quetiapine Fumarate (SEROquel) 25 mg 0900,1300,1700 PO 01/29/21 19:00 01/30/21 19:36 DC 01/30/21 17:25 Sertraline HCl (Zoloft) 25 mg DAILY PO 01/30/21 09:00 02/01/21 21:00 01/30/21 08:13 Vitamin D (Vitamin D3) 50,000 unit WEEKLY PO 01/30/21 14:15 01/30/21 17:25 Quetiapine Fumarate (SEROquel) 37.5 mg 0900,1300,1700 PO 01/31/21 09:00 Sertraline HCl (Zoloft) 50 mg DAILY PO 02/02/21 09:00 Current Medications Medications (Trade) Dose Ordered Sig/Rufus Route PRN Reason Start Time Stop Time Status Last Admin Dose Admin Sertraline HCl (Zoloft) 25 mg DAILY PO 01/30/21 09:00 02/01/21 21:00 01/30/21 08:13 Vitamin D (Vitamin D3) 50,000 unit WEEKLY PO 01/30/21 14:15 01/30/21 17:25 I have reviewed the current psychotropics carefully including drug interactions. Risk benefit ratio favors no change other than as noted in my dictated progress note. Diagnosis: Problems: (1) Major neurocognitive disorder (2) Impulse control disorder, unspecified (3) Anxiety disorder, unspecified (4) Dementia, vascular, with depression (5) Dementia, vascular, with delusions (6) Dementia in Alzheimer's disease with depression (7) Dementia in Alzheimer's disease with delusions (8) Dementia of the Alzheimer's type with early onset with behavioral disturbance JOSE MIGUEL MCGOWAN MD Jan 30, 2021 22:00
[2021-01-30] MEDS: traZODone 50 MG TABLET. PO PRN (22:03)
--- NOTE | 2021-01-31 02:15 | NUR ---
Nursing Note Pts abdomen was distended, round, hard, pt was agitated screaming pacing confused. Bladder scan shows greater than 490 in her bladder. Pt escorted to the quiet room straight cath performed with staff X 4. Pt highly combative and emotional during procedure. 700 cc's drained from her bladder. Cath removed and pt was able to rest comfortably after that. Pt given zydis and traz at HS confused and agitated. Now resting well.
[2021-01-31 06:05] VITALS: BP 101/69
[2021-01-31] MEDS: DIVALPROEX 125 MG CAP.SPRINK PO SCH ×2 (08:03→21:07)
[2021-01-31] MEDS: SERTRALINE 25 MG TABLET. PO SCH (08:04)
[2021-01-31] MEDS: QUEtiapine 25 MG TABLET. PO SCH ×3 (08:04→17:24)
--- NOTE | 2021-01-31 12:47 | CONS ---
Consult for medical management for the patient. HISTORY OF PRESENT ILLNESS: The patient is a 75-year-old female patient who apparently was transferred from [facility] where she arrived from [facility] on account of worsening confusion being combative, aggressive, not sleeping verbally abusive with marked lability of mood, when drinks eloping from the home. She was also having active hallucination, multiple falls and has fallen down stairs multiple times. She has been at [facility] for fci care. She has failed outpatient psychiatric intervention and her behaviors resisted at [facility] and therefore, she was admitted to [facility] for inpatient psychiatric stabilization. PAST PSYCHIATRIC HISTORY: Significant for dementia of Alzheimer's type, vascular. She apparently has been more confused in the evening, anxious, restless, having sleep and appetite changes, psychotic symptoms. These behaviors have been deemed dangerous, unmanageable resulting in the admission to [facility]. PAST MEDICAL HISTORY: Significant for metabolic encephalopathy, dysphagia, history of liposarcoma, history of shoulder dislocation and failure to thrive. She is also known to have seizure disorder and recent urinary tract infection. ALLERGIES: She has no known drug allergies. MEDICATIONS: She is currently on the following medications, she is on sertraline 25 mg once a day, quetiapine fumarate 25 mg 3 times a day, trazodone 50 mg at bedtime, olanzapine 2.5 mg every 2 hours, divalproex sodium 250 mg twice a day, phenytoin sodium 100 mg at bedtime, milk of magnesia 30 mL p.o. daily p.r.n. for constipation. She is on Mylanta 15 mL after meals and as needed, acetaminophen 650 mg every 6 hours and hydrocodone/APAP 10/325 one tablet twice a day. REVIEW OF SYSTEMS: Unobtainable. FAMILY HISTORY: Noncontributory. SOCIAL HISTORY: She apparently has been a resident at [facility]. She does not smoke, drink alcohol or use recreational drugs. PHYSICAL EXAMINATION: GENERAL: On examining her, she apparently looked well and was clearly in no apparent respiratory distress. No pallor, jaundice, cyanosis, or thyromegaly. No jugular distention. No limb edema. VITAL SIGNS: Her heart rate was 93. Blood pressure was 118/64, temperature was 98, respiratory rate was 16 and oxygen saturation was 92%. HEENT: Normocephalic, atraumatic. NECK: Supple. HEART: Showed normal first and second heart sounds, no gallop, rub or murmur. CHEST: Clear to auscultation, no crepitation or rhonchi. ABDOMEN: Distended, soft, nontender. NEUROLOGIC: She is extremely demented and does not really give any useful information; however, she is grossly intact. GENITOURINARY: She does have urinary retention requiring straight catheterization. LABORATORY DATA: Her lab work showed a white cell count of 5200, hemoglobin 14.8, hematocrit 46, MCV 94 and platelet count 209,000. Her chemistry showed a serum sodium 143, potassium 3.9, chloride 104, bicarbonate 31, anion gap of 8, BUN 21, creatinine 0.6. Estimated GFR was 98 mL per minute. Her glucose was 178. Hemoglobin A1c was 5.3, calcium was 9.3, magnesium was 2.5. Total bilirubin, AST, ALT, alkaline phosphatase were normal. Her total protein 7.4, albumin was 3.7. Serum iron was 165, TIBC was 335 and iron saturation was 49. Serum triglycerides was 113, total cholesterol was 228, LDL cholesterol 102, VLDL was 22, HDL was 104 and the ratio was 2. Her vitamin B12 was 1778 picograms; however, a 25-hydroxy vitamin D was extremely low at 21. TSH and total T4 and free T4 are all within normal range. In summary, this is a 75-year-old female patient a resident at [facility] who was admitted initially to [facility] where she on account of worsening confusion being combative, aggressive, not sleeping, verbally abusive with marked lability of mood, wondering eloping from the home. She was actually having active hallucination and has had multiple falls as her symptoms continue at [facility]. She was transferred to [facility] for inpatient psychiatric stabilization. Medically, she seemed to be all in all stable. There are two issues. One is that vitamin D is very low and her 25-hydroxy vitamin D was only 21. The other thing is her phenytoin level was very small dose and I am not sure this is really controlling his seizures. My plan is to start her on cholecalciferol and perhaps consider increasing the dose of phenytoin according to her weight, she should be at least on 200 mg or extended release phenytoin. Thank you, Dr. Mays, for allowing me to participate in the care of this patient. SIVA DR: Kari TID: [id number]
[2021-01-31] MEDS: HYDROcodone/APAP 10/325 1 TAB TABLET PO PRN (13:50)
--- NOTE | 2021-01-31 13:50 | NUR ---
Patient has been increasingly agitated, repeatedly calling out, and intrusive with other patients. She has been pushing wheelchair-bound patients against their will. PRN and scheduled meds provided per eMAR, will continue to monitor.
--- NOTE | 2021-01-31 15:07 | NUR ---
PSYCHOSOCIAL ASSESSMENT ADMISSION DATE: 01/26/21 CONTACT INFORMATION: DPOA/Guardian Contact Name: Miky Denise-spouse Contact Address: [address] [address] [place] [address] Contact Phone #: [phone] ETHNIC ORIGIN: REASONS FOR ADMISSION: Aggressive Agitated Anxiety/Panic Combative Confusion/Disoriented Hallucinations Poor impulse control Sig. Change Sleep ADDITIONAL ADMISSION COMMENTS: Per intake record, combative, aggressive, not sleeping, verbally abusive, mood lability, wandering, hallucinating. REASON FOR ADMISSION IN PATIENT/FAMILY'S OWN WORDS: Jillian is having progressive memory loss and most recently has become combative with spouse prompting her admission to [facility]. PATIENT/FAMILY EXPECTATIONS FOR ADMISSION: Per Miky, "I would love to see her back to being lined up so I could bring her back home safe here." LIVING SITUATION: Patient lives with: Spouse at home Contact Name: Miky Denise Contact Address: [address] [place] [address] [place] [address] Contact Phone #: [phone] FAMILY RELATIONS: Marital Status: # of Marriages: 1 # of Children: 0 [facility] Family Support: Concerned Additional Comments r/t Family: Jillian and Miky in 1965. They have been for 55 years. They have no children. Miky described their marriage as "beyond reproach, I'd never find another woman like that." Miky reported that it has just been him and Jillian, that they have isolated themselves from others. Miky shared that he prefers to handle things on his own versus asking others for help. SIGNIFICANT PSYCHIATRIC/MEDICAL HISTORY: Psychiatric/Treatment History: None. Jillian had neuropsychiatric testing around 2005 when she began to notice cognitive changes. Pertinent Family History: No history of mental illness or substance abuse in family of origin. HISTORICAL DATA: Childhood Environment: [place] Childhood Environment Additional Comments: Jillian was born to Willy and Zoie Villanueva and was raised in the [facility]. Her family were "country folk." Jillian was the second child born of four. She has an older sister and two younger brothers all still living. Per Jillian spouse, they are all estranged likely due to strained relations with Miky. Miky reported that Jillian's father did not approve of Miky. Trauma History: None Drug Abuse History last 12 months: None. PERSONAL HISTORY: Vocational history: Jillian went to work for [employer] at age 20. She worked her way up in the company and traveled for [employer]. She worked at [employer] 43 years before being approved for disability around 2006 for cognitive changes. service: None Episcopalian background: Jillian is of the [employer] arian. Sexual orientation: Heterosexual Educational Level: Jillian graduated from high school. Past/Present Interests/Hobbies: Jillian has enjoyed gardening, tung, walking [place], dogs, hand work, and playing chess/checkers. Financial support/resources: Chcf/Pension Social Security Monthly income: Adequate Person handling finances: Miky Denise-spouse Do you have a history of legal problems: None reported Cultural considerations: None reported SOCIAL RELATIONSHIPS-CURRENT/PAST: Psychiatrist: None PCP: Dr. Kamara Counselor/Therapist: None Veterans' Administration: None Support Group: None Electrophysiology Scientist/Oracle Developer: None Other relationships: None STRENGTHS & WEAKNESSES: Patient's strengths: Good family support Education level Ambulatory Patient's weaknesses: Impulsive Physically Aggressive Verbally Aggressive Other patient weaknesses: Severely impaired memory PRELIMINARY PLAN OF TREATMENT: Preliminary plan: Dec. Anxiety/Panic Dec. Hallucination/Delus Medication Stabilization Monitor Med Effects Control abnormal behavior Dec. Aggression Other preliminary treatment comments: Jillian will be encouraged to sit for short periods of time for simple group activities and meals. Finger foods are provided due to her short attention span. Jillian wanders about the unit most of the day. DISCHARGE PLANNING: Discharge planning/disposition: Memory Group Home Additional discharge needs identified: Jillian has fallen down the stairs in her home several times. She has also gotten lost in [place] acre[place] and the police assisted to locate her with a helicopter search. DEEPA discussed placement in memory care as a safer option then Miky taking Jillian home. DEEPA suggested that Miky tour [facility]. ADDITIONAL INFORMATION: Other Pertinent Data: DEEPA was able to reach Miky on this date. He had been ill with kidney stones and did have to go the [place] ER on the night of 01/29/21. Miky provided the above history as Jillian is not able to recall recent or remote events. Jillian has difficulty communicating her needs and answering basic questions asked of her. Miky plans to visit Jillian on Thursday, Thursday, and Thursday. Miky will be involved in team meeting on 02/04/21 via phone.
[2021-01-31 18:05] VITALS: BP 109/69
[2021-01-31] MEDS: PHENYTOIN SODIUM EXTENDED 100 MG CAPSULE PO SCH (21:06)
[2021-01-31] MEDS: TAMSULOSIN 0.4 MG CAP.ER.24H. PO SCH (21:08)
--- NOTE | 2021-01-31 22:02 | PDOC ---
Exam Note: Tristan Note: Please also refer to the separate dictated note~for this date of service dictated separately.~Patient seen individually. Discussed the patient with Nursing staff reviewed the chart.~Reviewed interim history and current functioning. Reviewed vital signs,~Labs/ Radiology~and current medications noted below. Continue current treatment with the changes noted in the dictated addendum note Assessment: Vital Signs/I&O: Vital Signs Date Time Temp Pulse Resp B/P (MAP) Pulse Ox O2 Delivery O2 Flow Rate FiO2 01/31/21 18:05 98.1 69 16 109/69 (82) 98 01/31/21 14:30 Room Air I & O 01/30/21 01/30/21 01/31/21 15:00 23:00 07:00 Intake Total 1020 ml 220 ml 120 ml Output Total 700 ml Balance 1020 ml 220 ml -580 ml Current Medications: Meds: Current Medications Medications (Trade) Dose Ordered Sig/Rufus Route PRN Reason Start Time Stop Time Status Last Admin Dose Admin Divalproex Sodium (Depakote Er) 250 mg BID PO 01/26/21 21:00 01/26/21 19:08 DC Donepezil HCl (Aricept) 10 mg DAILY PO 01/27/21 09:00 01/29/21 18:45 DC 01/29/21 08:42 Acetaminophen/ Hydrocodone Bitart (Lortab 10/325) 1 tab PRN BID PRN PO MODERATE TO SEVERE PAIN 01/26/21 16:15 01/31/21 13:50 Lorazepam (Ativan) 0.5 mg PRN TID PRN PO ANXIETY 01/26/21 16:15 01/26/21 18:01 DC 01/26/21 17:50 Memantine (Namenda) 10 mg DAILY PO 01/27/21 09:00 01/29/21 18:45 DC 01/29/21 08:41 Phenytoin Sodium (Dilantin) 100 mg QHS PO 01/26/21 21:00 01/31/21 23:00 01/31/21 21:06 Quetiapine Fumarate (SEROquel) 25 mg BID PO 01/26/21 21:00 01/29/21 18:45 DC 01/29/21 08:41 Acetaminophen (Tylenol) 650 mg PRN Q6HRS PRN PO MILD PAIN / TEMP > 100.3'F 01/26/21 16:30 01/26/21 19:58 Multi-Ingredient Ointment (Analgesic [place]) 1 david PRN QID PRN TP MUSCLE PAIN 01/26/21 16:30 Al Hydroxide/Mg Hydroxide (Mylanta Plus Xs) 15 ml PRN AFTMEALHC PRN PO DYSPEPSIA 01/26/21 16:30 Magnesium Hydroxide (Milk Of Magnesia) 2,400 mg PRN QHS PRN PO CONSTIPATION 01/26/21 16:30 Olanzapine (ZyPREXA ZYDIS) 1.25 mg PRN Q2HR PRN PO PSYCHOSIS 01/26/21 18:00 01/28/21 23:35 DC 01/28/21 22:02 Divalproex Sodium (Depakote Sprinkles) 250 mg BID PO 01/26/21 21:00 01/31/21 21:07 Olanzapine (ZyPREXA ZYDIS) 2.5 mg PRN Q2HR PRN PO PSYCHOSIS 01/28/21 23:45 01/31/21 13:50 Trazodone HCl (Desyrel) 50 mg PRN QHS PRN PO INSOMNIA, MAY REPEAT X1 01/28/21 23:45 01/30/21 22:03 Quetiapine Fumarate (SEROquel) 25 mg 0900,1300,1700 PO 01/29/21 19:00 01/30/21 19:36 DC 01/30/21 17:25 Sertraline HCl (Zoloft) 25 mg DAILY PO 01/30/21 09:00 02/01/21 21:00 01/31/21 08:04 Vitamin D (Vitamin D3) 50,000 unit WEEKLY PO 01/30/21 14:15 01/30/21 17:25 Quetiapine Fumarate (SEROquel) 37.5 mg 0900,1300,1700 PO 01/31/21 09:00 01/31/21 17:24 Sertraline HCl (Zoloft) 50 mg DAILY PO 02/02/21 09:00 Tamsulosin HCl (Flomax) 0.4 mg QHS PO 01/31/21 21:00 01/31/21 21:08 Current Medications Medications (Trade) Dose Ordered Sig/Rufus Route PRN Reason Start Time Stop Time Status Last Admin Dose Admin Quetiapine Fumarate (SEROquel) 37.5 mg 0900,1300,1700 PO 01/31/21 09:00 01/31/21 17:24 Tamsulosin HCl (Flomax) 0.4 mg QHS PO 01/31/21 21:00 01/31/21 21:08 I have reviewed the current psychotropics carefully including drug interactions. Risk benefit ratio favors no change other than as noted in my dictated progress note. Diagnosis: Problems: (1) Major neurocognitive disorder (2) Impulse control disorder, unspecified (3) Anxiety disorder, unspecified (4) Dementia, vascular, with depression (5) Dementia, vascular, with delusions (6) Dementia in Alzheimer's disease with depression (7) Dementia in Alzheimer's disease with delusions (8) Dementia of the Alzheimer's type with early onset with behavioral disturbanc JOSE MIGUEL Singh MD Jan 31, 2021 22:02
--- NOTE | 2021-02-01 00:03 | NUR ---
Nursing Note Pt walks the unit, very labile smiles, then cries laughs then gets very mad. Takes meds whole, compliant and cooperative with assessment. Now resting well.
[2021-02-01 06:05] VITALS: BP 115/78
[2021-02-01] MEDS: DIVALPROEX 125 MG CAP.SPRINK PO SCH ×2 (08:35→20:13)
[2021-02-01] MEDS: SERTRALINE 25 MG TABLET. PO SCH (08:35)
[2021-02-01] MEDS: QUEtiapine 25 MG TABLET. PO SCH ×3 (08:35→17:04)
[2021-02-01] MEDS: HYDROcodone/APAP 10/325 1 TAB TABLET PO PRN ×2 (13:01→22:34)
[2021-02-01 15:56] VITALS: BP 105/68
--- NOTE | 2021-02-01 18:31 | NUR ---
NSG NOTE; NO URINARY RETENTION PT'S ABD DISTENDED AFTER DINNER AND HAD NOT VOIDED TODAY. SHE WAS PLACED ON THE TOILET, VOIDED AND HAD SMALL BM. BLADDER SCAN SHOWED NO URINE RETENTION. STRAIGHT CATH NOT NEEDED AT THIS TIME
--- NOTE | 2021-02-01 18:39 | NUR ---
NSG NOTE; SHIFT BEHAVIORS PT HAS BEEN WANDERING THE HALLS TODAY. SHE RAMBLES ALMOST CONTINUOUSLY TO HERSELF. SHE WILL BRIEFLY ANSWER QUESTIONS FROM STAFF BUT QUICKLY LOSES ATTENTION AND WANDERS OFF. SHE WON'T SIT FOR MEALS BUT WILL TAKE BITS OF FOOD HANDED TO HER. SHE GETS VERY UPSET AND YELLS LOUDLY AND IS VERY RESISTANT WHEN STAFF HAS TO PROVIDE CARES. SHE HAD A PERSONAL VISIT WITH HER AND WAS CALM AROUND HIM
[2021-02-01] MEDS: TAMSULOSIN 0.4 MG CAP.ER.24H. PO SCH (20:12)
--- NOTE | 2021-02-01 22:18 | PDOC ---
Exam Note: Tristan Note: Please also refer to the separate dictated note~for this date of service dictated separately.~Patient seen individually. Discussed the patient with Nursing staff reviewed the chart.~Reviewed interim history and current functioning. Reviewed vital signs,~Labs/ Radiology~and current medications noted below. Continue current treatment with the changes noted in the dictated addendum note Assessment: Vital Signs/I&O: Vital Signs Date Time Temp Pulse Resp B/P (MAP) Pulse Ox O2 Delivery O2 Flow Rate FiO2 02/01/21 15:56 97.4 86 19 105/68 (80) 100 Room Air I & O 01/31/21 01/31/21 02/01/21 15:00 23:00 07:00 Intake Total 600 ml 360 ml Balance 600 ml 360 ml Current Medications: Meds: Current Medications Medications (Trade) Dose Ordered Sig/Rufus Route PRN Reason Start Time Stop Time Status Last Admin Dose Admin Divalproex Sodium (Depakote Er) 250 mg BID PO 01/26/21 21:00 01/26/21 19:08 DC Donepezil HCl (Aricept) 10 mg DAILY PO 01/27/21 09:00 01/29/21 18:45 DC 01/29/21 08:42 Acetaminophen/ Hydrocodone Bitart (Lortab 10/325) 1 tab PRN BID PRN PO MODERATE TO SEVERE PAIN 01/26/21 16:15 02/01/21 13:01 Lorazepam (Ativan) 0.5 mg PRN TID PRN PO ANXIETY 01/26/21 16:15 01/26/21 18:01 DC 01/26/21 17:50 Memantine (Namenda) 10 mg DAILY PO 01/27/21 09:00 01/29/21 18:45 DC 01/29/21 08:41 Phenytoin Sodium (Dilantin) 100 mg QHS PO 01/26/21 21:00 01/31/21 23:00 DC 01/31/21 21:06 Quetiapine Fumarate (SEROquel) 25 mg BID PO 01/26/21 21:00 01/29/21 18:45 DC 01/29/21 08:41 Acetaminophen (Tylenol) 650 mg PRN Q6HRS PRN PO MILD PAIN / TEMP > 100.3'F 01/26/21 16:30 01/26/21 19:58 Multi-Ingredient Ointment (Analgesic [place]) 1 david PRN QID PRN TP MUSCLE PAIN 01/26/21 16:30 Al Hydroxide/Mg Hydroxide (Mylanta Plus Xs) 15 ml PRN AFTMEALHC PRN PO DYSPEPSIA 01/26/21 16:30 Magnesium Hydroxide (Milk Of Magnesia) 2,400 mg PRN QHS PRN PO CONSTIPATION 01/26/21 16:30 Olanzapine (ZyPREXA ZYDIS) 1.25 mg PRN Q2HR PRN PO PSYCHOSIS 01/26/21 18:00 01/28/21 23:35 DC 01/28/21 22:02 Divalproex Sodium (Depakote Sprinkles) 250 mg BID PO 01/26/21 21:00 02/01/21 20:13 Olanzapine (ZyPREXA ZYDIS) 2.5 mg PRN Q2HR PRN PO PSYCHOSIS 01/28/21 23:45 02/01/21 20:13 Trazodone HCl (Desyrel) 50 mg PRN QHS PRN PO INSOMNIA, MAY REPEAT X1 01/28/21 23:45 01/30/21 22:03 Quetiapine Fumarate (SEROquel) 25 mg 0900,1300,1700 PO 01/29/21 19:00 01/30/21 19:36 DC 01/30/21 17:25 Sertraline HCl (Zoloft) 25 mg DAILY PO 01/30/21 09:00 02/01/21 21:00 DC 02/01/21 08:35 Vitamin D (Vitamin D3) 50,000 unit WEEKLY PO 01/30/21 14:15 01/30/21 17:25 Quetiapine Fumarate (SEROquel) 37.5 mg 0900,1300,1700 PO 01/31/21 09:00 02/01/21 17:04 Sertraline HCl (Zoloft) 50 mg DAILY PO 02/02/21 09:00 Tamsulosin HCl (Flomax) 0.4 mg QHS PO 01/31/21 21:00 02/01/21 20:12 I have reviewed the current psychotropics carefully including drug interactions. Risk benefit ratio favors no change other than as noted in my dictated progress note. Diagnosis: Problems: (1) Major neurocognitive disorder (2) Impulse control disorder, unspecified (3) Anxiety disorder, unspecified (4) Dementia, vascular, with depression (5) Dementia, vascular, with delusions (6) Dementia in Alzheimer's disease with depression (7) Dementia in Alzheimer's disease with delusions (8) Dementia of the Alzheimer's type with early onset with behavioral disturbanc JOSE MIGUEL Singh MD Feb 01, 2021 22:18
--- NOTE | 2021-02-01 23:56 | NUR ---
Pt has been highly anxious this evening. Pt wandering, intrusive, resistive to redirection. Compliant with crushed medications. PRN Zyprexa and Trazodone administered. Once in bed, pt yelling out and restless setting off bed alarm. Pt taken to [facility] where she could wander safely. Pt yelling, door rattling, banging on doors. Pt yelling out "ouch" occasionally. PRN Lortab administered. Bladder scan performed with staff x4 as pt was highly resistive. Scan showed only 187cc so straight cath not performed. Pt eventually calmed down with staff beside her and is currently sleeping on the mattress in the quiet room.
--- NOTE | 2021-02-02 06:19 | NUR ---
Pt had not voided all night. Bladder scan performed revealing >700cc. Straight cath performed with staff x4. 1000cc urine obtained. Pt was yelling and highly combative during straight cath.
[2021-02-02 06:36] VITALS: BP 119/74
--- NOTE | 2021-02-02 07:40 | PDOC ---
Exam Note: Tristan Note: This note is a late entry for 01/30/2021 covers elements not covered in my initial note. Subjective: The patient was seen individually in the evening of 01/30/2021 with Eagle BUTLER, discussed and reviewed the chart. The patient slept 4 hours previous night. She remains confused, has had ongoing mood lability, intermittent screaming and yelling, loud. She was pushing another demented patient in the wheelchair down one hallway up the other hallway. Received Zyprexa at 10 a.m., restless post 1 p.m., wondering. Review of Systems: No CV, , pulmonary, eye, ENT system symptoms on review. Reliability poor. Mental Status Exam: The patient is oriented to herself and situation. Insight and judgment, recent and remote memory, attention and concentration, fund of knowledge is poor consistent with her diagnoses. Laboratory Data: Reviewed. Impression: Major neurocognitive disorder Alzheimer vascular with delusion, depression, and behavioral disturbance. Anxiety disorder unspecified. Impulse control disorder unspecified. Plan: We will increase her Seroquel from 25 mg t.i.d. to 37.5 mg t.i.d., Zoloft from 25 mg a day to 50 mg a day after she has been on 25 mg for 3 days. Maintain Depakote Sprinkle 250 mg b.i.d., and trazodone. Dilantin is being discontinued. Assessment: Vital Signs/I&O: Vital Signs Date Time Temp Pulse Resp B/P (MAP) Pulse Ox O2 Delivery O2 Flow Rate FiO2 02/02/21 06:36 97.7 74 13 119/74 (89) 98 02/01/21 15:56 Room Air I & O 02/01/21 02/01/21 02/02/21 15:00 23:00 07:00 Intake Total 360 ml 360 ml Output Total 1000 ml Balance 360 ml 360 ml -1000 ml Current Medications: Meds: Current Medications Medications (Trade) Dose Ordered Sig/Rufus Route PRN Reason Start Time Stop Time Status Last Admin Dose Admin Divalproex Sodium (Depakote Er) 250 mg BID PO 01/26/21 21:00 01/26/21 19:08 DC Donepezil HCl (Aricept) 10 mg DAILY PO 01/27/21 09:00 01/29/21 18:45 DC 01/29/21 08:42 Acetaminophen/ Hydrocodone Bitart (Lortab 10/325) 1 tab PRN BID PRN PO MODERATE TO SEVERE PAIN 01/26/21 16:15 02/01/21 22:34 Lorazepam (Ativan) 0.5 mg PRN TID PRN PO ANXIETY 01/26/21 16:15 01/26/21 18:01 DC 01/26/21 17:50 Memantine (Namenda) 10 mg DAILY PO 01/27/21 09:00 01/29/21 18:45 DC 01/29/21 08:41 Phenytoin Sodium (Dilantin) 100 mg QHS PO 01/26/21 21:00 01/31/21 23:00 DC 01/31/21 21:06 Quetiapine Fumarate (SEROquel) 25 mg BID PO 01/26/21 21:00 01/29/21 18:45 DC 01/29/21 08:41 Acetaminophen (Tylenol) 650 mg PRN Q6HRS PRN PO MILD PAIN / TEMP > 100.3'F 01/26/21 16:30 01/26/21 19:58 Multi-Ingredient Ointment (Analgesic [place]) 1 david PRN QID PRN TP MUSCLE PAIN 01/26/21 16:30 Al Hydroxide/Mg Hydroxide (Mylanta Plus Xs) 15 ml PRN AFTMEALHC PRN PO DYSPEPSIA 01/26/21 16:30 Magnesium Hydroxide (Milk Of Magnesia) 2,400 mg PRN QHS PRN PO CONSTIPATION 01/26/21 16:30 Olanzapine (ZyPREXA ZYDIS) 1.25 mg PRN Q2HR PRN PO PSYCHOSIS 01/26/21 18:00 01/28/21 23:35 DC 01/28/21 22:02 Divalproex Sodium (Depakote Sprinkles) 250 mg BID PO 01/26/21 21:00 02/01/21 20:13 Olanzapine (ZyPREXA ZYDIS) 2.5 mg PRN Q2HR PRN PO PSYCHOSIS 01/28/21 23:45 02/01/21 20:13 Trazodone HCl (Desyrel) 50 mg PRN QHS PRN PO INSOMNIA, MAY REPEAT X1 01/28/21 23:45 01/30/21 22:03 Quetiapine Fumarate (SEROquel) 25 mg 0900,1300,1700 PO 01/29/21 19:00 01/30/21 19:36 DC 01/30/21 17:25 Sertraline HCl (Zoloft) 25 mg DAILY PO 01/30/21 09:00 02/01/21 21:00 DC 02/01/21 08:35 Vitamin D (Vitamin D3) 50,000 unit WEEKLY PO 01/30/21 14:15 01/30/21 17:25 Quetiapine Fumarate (SEROquel) 37.5 mg 0900,1300,1700 PO 01/31/21 09:00 02/01/21 17:04 Sertraline HCl (Zoloft) 50 mg DAILY PO 02/02/21 09:00 Tamsulosin HCl (Flomax) 0.4 mg QHS PO 01/31/21 21:00 02/01/21 20:12 I have reviewed the current psychotropics carefully including drug interactions. Risk benefit ratio favors no change other than as noted in my dictated progress note. Diagnosis: Problems: (1) Major neurocognitive disorder (2) Impulse control disorder, unspecified (3) Anxiety disorder, unspecified (4) Dementia, vascular, with depression (5) Dementia, vascular, with delusions (6) Dementia in Alzheimer's disease with depression (7) Dementia in Alzheimer's disease with delusions (8) Dementia of the Alzheimer's type with early onset with behavioral disturbance JOSE MIGUEL MCGOWAN MD February 02, 2021 07:40
[2021-02-02] MEDS: DIVALPROEX 125 MG CAP.SPRINK PO SCH ×2 (08:05→20:35)
[2021-02-02] MEDS: QUEtiapine 25 MG TABLET. PO SCH ×3 (08:05→20:36)
[2021-02-02] MEDS: SERTRALINE 50 MG TABLET. PO SCH (08:05)
--- NOTE | 2021-02-02 08:21 | PDOC ---
Exam Note: Tristan Note: This note is a late entry for 01/31/2021 covers elements not covered in my initial note. Subjective: The patient was seen individually in the evening of 01/31/2021 with Siomara BUTLER, discussed and reviewed the chart. The patient slept 5-1/2 hours previous night. She remains extremely confused, very labile in her mood. She is retaining urine and had 700 mL accumulation. She did better after she was relieved of this. She has been anxious, restless, banging on the doors. Review of Systems: No CV, , pulmonary, eye, ENT system symptoms on review. Reliability poor. Mental Status Exam: The patient is oriented to herself and situation. Insight and judgment, recent and remote memory, attention and concentration, fund of knowledge is poor consistent with her diagnoses. Laboratory Data: Reviewed. Impression: Major neurocognitive disorder Alzheimer vascular with delusion, depression, and behavioral disturbance. Anxiety disorder unspecified. Impulse control disorder unspecified. Plan: The patients Dilantin is being tapered. Maintain rest of the psychotropics per initial note. Seroquel has been increased to 37.5 mg t.i.d., Zoloft to 50 mg a day. We will follow labs level on the Depakote. Adjust to reach therapeutic level. Assessment: Vital Signs/I&O: Vital Signs Date Time Temp Pulse Resp B/P (MAP) Pulse Ox O2 Delivery O2 Flow Rate FiO2 02/02/21 06:36 97.7 74 13 119/74 (89) 98 02/01/21 15:56 Room Air I & O 02/01/21 02/01/21 02/02/21 15:00 23:00 07:00 Intake Total 360 ml 360 ml Output Total 1000 ml Balance 360 ml 360 ml -1000 ml Current Medications: Meds: Current Medications Medications (Trade) Dose Ordered Sig/Rufus Route PRN Reason Start Time Stop Time Status Last Admin Dose Admin Divalproex Sodium (Depakote Er) 250 mg BID PO 01/26/21 21:00 01/26/21 19:08 DC Donepezil HCl (Aricept) 10 mg DAILY PO 01/27/21 09:00 01/29/21 18:45 DC 01/29/21 08:42 Acetaminophen/ Hydrocodone Bitart (Lortab 10/325) 1 tab PRN BID PRN PO MODERATE TO SEVERE PAIN 01/26/21 16:15 02/01/21 22:34 Lorazepam (Ativan) 0.5 mg PRN TID PRN PO ANXIETY 01/26/21 16:15 01/26/21 18:01 DC 01/26/21 17:50 Memantine (Namenda) 10 mg DAILY PO 01/27/21 09:00 01/29/21 18:45 DC 01/29/21 08:41 Phenytoin Sodium (Dilantin) 100 mg QHS PO 01/26/21 21:00 01/31/21 23:00 DC 01/31/21 21:06 Quetiapine Fumarate (SEROquel) 25 mg BID PO 01/26/21 21:00 01/29/21 18:45 DC 01/29/21 08:41 Acetaminophen (Tylenol) 650 mg PRN Q6HRS PRN PO MILD PAIN / TEMP > 100.3'F 01/26/21 16:30 01/26/21 19:58 Multi-Ingredient Ointment (Analgesic [place]) 1 david PRN QID PRN TP MUSCLE PAIN 01/26/21 16:30 Al Hydroxide/Mg Hydroxide (Mylanta Plus Xs) 15 ml PRN AFTMEALHC PRN PO DYSPEPSIA 01/26/21 16:30 Magnesium Hydroxide (Milk Of Magnesia) 2,400 mg PRN QHS PRN PO CONSTIPATION 01/26/21 16:30 Olanzapine (ZyPREXA ZYDIS) 1.25 mg PRN Q2HR PRN PO PSYCHOSIS 01/26/21 18:00 01/28/21 23:35 DC 01/28/21 22:02 Divalproex Sodium (Depakote Sprinkles) 250 mg BID PO 01/26/21 21:00 02/02/21 08:05 Olanzapine (ZyPREXA ZYDIS) 2.5 mg PRN Q2HR PRN PO PSYCHOSIS 01/28/21 23:45 02/01/21 20:13 Trazodone HCl (Desyrel) 50 mg PRN QHS PRN PO INSOMNIA, MAY REPEAT X1 01/28/21 23:45 01/30/21 22:03 Quetiapine Fumarate (SEROquel) 25 mg 0900,1300,1700 PO 01/29/21 19:00 01/30/21 19:36 DC 01/30/21 17:25 Sertraline HCl (Zoloft) 25 mg DAILY PO 01/30/21 09:00 02/01/21 21:00 DC 02/01/21 08:35 Vitamin D (Vitamin D3) 50,000 unit WEEKLY PO 01/30/21 14:15 01/30/21 17:25 Quetiapine Fumarate (SEROquel) 37.5 mg 0900,1300,1700 PO 01/31/21 09:00 02/02/21 08:05 Sertraline HCl (Zoloft) 50 mg DAILY PO 02/02/21 09:00 02/02/21 08:05 Tamsulosin HCl (Flomax) 0.4 mg QHS PO 01/31/21 21:00 02/01/21 20:12 Current Medications Medications (Trade) Dose Ordered Sig/Rufus Route PRN Reason Start Time Stop Time Status Last Admin Dose Admin Sertraline HCl (Zoloft) 50 mg DAILY PO 02/02/21 09:00 02/02/21 08:05 I have reviewed the current psychotropics carefully including drug interactions. Risk benefit ratio favors no change other than as noted in my dictated progress note. Diagnosis: Problems: (1) Major neurocognitive disorder (2) Impulse control disorder, unspecified (3) Anxiety disorder, unspecified (4) Dementia, vascular, with depression (5) Dementia, vascular, with delusions (6) Dementia in Alzheimer's disease with depression (7) Dementia in Alzheimer's disease with delusions (8) Dementia of the Alzheimer's type with early onset with behavioral disturbanc JOSE MIGUEL Singh MD February 02, 2021 08:21
[2021-02-02 11:01] LABS: VAL ACID 56 mcg/mL (50-100)
--- NOTE | 2021-02-02 14:13 | NUR ---
Shift Summary Patient continues to pace hallways, rambling things that are not recognizable, and is irritable with cares. Patient is not easily distracted but is med compliant. Addendum: 02/02/21 at 1838 by MITCHELL HERNÁNDEZ RN Straight Cath 600ml out
[2021-02-02 15:50] VITALS: BP 117/63
[2021-02-02] MEDS: TAMSULOSIN 0.4 MG CAP.ER.24H. PO SCH (20:35)
[2021-02-02] MEDS: traZODone 50 MG TABLET. PO PRN ×2 (20:36→23:26)
--- NOTE | 2021-02-02 21:55 | PDOC ---
Exam Note: Tristan Note: Please also refer to the separate dictated note~for this date of service dictated separately.~Patient seen individually. Discussed the patient with Nursing staff reviewed the chart.~Reviewed interim history and current functioning. Reviewed vital signs,~Labs/ Radiology~and current medications noted below. Continue current treatment with the changes noted in the dictated addendum note Assessment: Vital Signs/I&O: Vital Signs Date Time Temp Pulse Resp B/P (MAP) Pulse Ox O2 Delivery O2 Flow Rate FiO2 02/02/21 15:50 97.1 76 18 117/63 (81) 95 Room Air I & O 02/01/21 02/01/21 02/02/21 14:59 22:59 06:59 Intake Total 360 ml 360 ml Output Total 1000 ml Balance 360 ml 360 ml -1000 ml Labs: Laboratory Tests Test 02/02/21 09:55 Valproic Acid Level 56 mcg/mL (50-100) Valproic Acid Last Dose Date 02/01/21 Valproic Acid Last Dose Time 2100 Current Medications: Meds: Laboratory Tests Test 02/02/21 09:55 Valproic Acid (Depakene) Level 56 mcg/mL Valproic Acid Last Dose Date 02/01/21 Valproic Acid Last Dose Time 2100 Current Medications Medications (Trade) Dose Ordered Sig/Rufus Route PRN Reason Start Time Stop Time Status Last Admin Dose Admin Divalproex Sodium (Depakote Er) 250 mg BID PO 01/26/21 21:00 01/26/21 19:08 DC Donepezil HCl (Aricept) 10 mg DAILY PO 01/27/21 09:00 01/29/21 18:45 DC 01/29/21 08:42 Acetaminophen/ Hydrocodone Bitart (Lortab 10/325) 1 tab PRN BID PRN PO MODERATE TO SEVERE PAIN 01/26/21 16:15 02/01/21 22:34 Lorazepam (Ativan) 0.5 mg PRN TID PRN PO ANXIETY 01/26/21 16:15 01/26/21 18:01 DC 01/26/21 17:50 Memantine (Namenda) 10 mg DAILY PO 01/27/21 09:00 01/29/21 18:45 DC 01/29/21 08:41 Phenytoin Sodium (Dilantin) 100 mg QHS PO 01/26/21 21:00 01/31/21 23:00 DC 01/31/21 21:06 Quetiapine Fumarate (SEROquel) 25 mg BID PO 01/26/21 21:00 01/29/21 18:45 DC 01/29/21 08:41 Acetaminophen (Tylenol) 650 mg PRN Q6HRS PRN PO MILD PAIN / TEMP > 100.3'F 01/26/21 16:30 01/26/21 19:58 Multi-Ingredient Ointment (Analgesic [place]) 1 david PRN QID PRN TP MUSCLE PAIN 01/26/21 16:30 Al Hydroxide/Mg Hydroxide (Mylanta Plus Xs) 15 ml PRN AFTMEALHC PRN PO DYSPEPSIA 01/26/21 16:30 Magnesium Hydroxide (Milk Of Magnesia) 2,400 mg PRN QHS PRN PO CONSTIPATION 01/26/21 16:30 Olanzapine (ZyPREXA ZYDIS) 1.25 mg PRN Q2HR PRN PO PSYCHOSIS 01/26/21 18:00 01/28/21 23:35 DC 01/28/21 22:02 Divalproex Sodium (Depakote Sprinkles) 250 mg BID PO 01/26/21 21:00 02/02/21 20:35 Olanzapine (ZyPREXA ZYDIS) 2.5 mg PRN Q2HR PRN PO PSYCHOSIS 01/28/21 23:45 02/02/21 15:56 Trazodone HCl (Desyrel) 50 mg PRN QHS PRN PO INSOMNIA, MAY REPEAT X1 01/28/21 23:45 02/02/21 20:36 Quetiapine Fumarate (SEROquel) 25 mg 0900,1300,1700 PO 01/29/21 19:00 01/30/21 19:36 DC 01/30/21 17:25 Sertraline HCl (Zoloft) 25 mg DAILY PO 01/30/21 09:00 02/01/21 21:00 DC 02/01/21 08:35 Vitamin D (Vitamin D3) 50,000 unit WEEKLY PO 01/30/21 14:15 01/30/21 17:25 Quetiapine Fumarate (SEROquel) 37.5 mg 0900,1300,1700 PO 01/31/21 09:00 02/02/21 16:33 DC 02/02/21 12:41 Sertraline HCl (Zoloft) 50 mg DAILY PO 02/02/21 09:00 02/02/21 08:05 Tamsulosin HCl (Flomax) 0.4 mg QHS PO 01/31/21 21:00 02/02/21 20:35 Quetiapine Fumarate (SEROquel) 50 mg 0900,1200 PO 02/03/21 09:00 Quetiapine Fumarate (SEROquel) 25 mg QHS PO 02/02/21 21:00 02/02/21 20:36 Current Medications Medications (Trade) Dose Ordered Sig/Rufus Route PRN Reason Start Time Stop Time Status Last Admin Dose Admin Sertraline HCl (Zoloft) 50 mg DAILY PO 02/02/21 09:00 02/02/21 08:05 Quetiapine Fumarate (SEROquel) 25 mg QHS PO 02/02/21 21:00 02/02/21 20:36 I have reviewed the current psychotropics carefully including drug interactions. Risk benefit ratio favors no change other than as noted in my dictated progress note. Diagnosis: Problems: (1) Major neurocognitive disorder (2) Impulse control disorder, unspecified (3) Anxiety disorder, unspecified (4) Dementia, vascular, with depression (5) Dementia, vascular, with delusions (6) Dementia in Alzheimer's disease with depression (7) Dementia in Alzheimer's disease with delusions (8) Dementia of the Alzheimer's type with early onset with behavioral distur JOSE MIGUEL Hamilton MD February 02, 2021 21:55
--- NOTE | 2021-02-02 23:12 | NUR ---
Pt wandering unit this evening. Pt highly disorganized, rambling with word salad. Pt highly agitated in shower, requiring staff x4 to assist. Compliant with crushed medications. Pt currently in [facility] banging on doors and windows, yelling and door checking.
[2021-02-02] MEDS: HYDROcodone/APAP 10/325 1 TAB TABLET PO PRN (23:26)
[2021-02-03 06:24] VITALS: BP 134/81
[2021-02-03] MEDS: SERTRALINE 50 MG TABLET. PO SCH (06:31)
[2021-02-03] MEDS: DIVALPROEX 125 MG CAP.SPRINK PO SCH ×2 (06:31→20:44)
[2021-02-03] MEDS: QUEtiapine 50 MG TABLET. PO SCH ×2 (06:32→12:11)
[2021-02-03 08:06] LABS: BACTERIA,URINE MANY /HPF (0-FEW); BILIRUBIN,URINE NEG (NEG); CLARITY,URINE HAZY; COLOR,URINE YELLOW; GLUCOSE,URINE NEG (NEG); NITRITE,URINE POS (NEG); RBC,URINE RARE /HPF (0-2); SQUAMOUS EPITHELIAL CELL,UR FEW /LPF; UROBILINOGEN,URINE 0.2 mg/dL (0.2 mg/dL)
[2021-02-03 10:07] LABS: BASO % 0 % (0-3); EOS % 1 % (0-3); HEMATOCRIT 39.5 % (36.0-47.0); HEMOGLOBIN 13.1 g/dL (12.0-15.5); LYMPH # 0.9 x10^3/uL (1.0-4.8); LYMPH % 13 % (24-48); MEAN CORPUSCULAR HEMOGLOBIN 31 pg (25-35); MEAN CORPUSCULAR HGB CONC 33 g/dL (31-37); MEAN CORPUSCULAR VOLUME 92 fL (79-100); MONO # 0.7 x10^3/uL (0.0-1.1); MONO % 9 % (0-9); NEUT # 5.4 x10^3uL (1.8-7.7); NEUT % 77 % (31-73); PLATELET COUNT 205 x10^3/uL (140-400); RED BLOOD COUNT 4.28 x10^6/uL (3.50-5.40); RED CELL DISTRIBUTION WIDTH 14.6 % (11.5-14.5); WHITE BLOOD COUNT 7.1 x10^3/uL (4.0-11.0)
--- NOTE | 2021-02-03 11:23 | NUR ---
Patient is calmer today and appears to be less anxious. patient wandering halls and attempting to help push patients in wheelchairs.
[2021-02-03 13:21] LABS: ALBUMIN 3.2 g/dL (3.4-5.0); ALBUMIN/GLOBULIN RATIO 1.1 (1.0-1.7); CREATININE 0.7 mg/dL (0.6-1.0); POTASSIUM 4.6 mmol/L (3.5-5.1); TOTAL BILIRUBIN 0.2 mg/dL (0.2-1.0); TOTAL PROTEIN 6.2 g/dL (6.4-8.2)
--- NOTE | 2021-02-03 14:16 | NUR ---
Pt observed walking down the cantor with her pants and brief around her knees. While walking she was cupping her hand onto her genitals. This nurse and [employer] escorted pt to a bathroom to toilet her. She removed her hand from her genitals and grabbed onto SPOOLER OPERATOR [employer]OM[employer]IC's arm, smearing BM onto the SPOOLER OPERATOR [employer]OM[employer]IC's arm in the process. Pt became combative during toileting process; screaming, hitting, grabbing, and scratching. It too 3:1 to toilet her and wash her hands, with one staff member holding onto her wrists to prevent more hitting. Plan of care continues, will pass to next shift.
[2021-02-03] MEDS: QUEtiapine 25 MG TABLET. PO SCH ×2 (18:00→20:44)
--- NOTE | 2021-02-03 19:01 | NUR ---
Bladder scan reveal approx 598 mL of urine. Straight cath procedure performed with 5:1 assistance. Approx 600 mL of urine was obtained; clear and yellow. Pt did not tolerate procedure well and was combative during eh majority fo the procedure.
[2021-02-03] MEDS: traZODone 50 MG TABLET. PO PRN (20:44)
[2021-02-03] MEDS: TAMSULOSIN 0.4 MG CAP.ER.24H. PO SCH (20:44)
--- NOTE | 2021-02-03 21:58 | PDOC ---
Exam Note: Tristan Note: Please also refer to the separate dictated note~for this date of service dictated separately.~Patient seen individually. Discussed the patient with Nursing staff reviewed the chart.~Reviewed interim history and current functioning. Reviewed vital signs,~Labs/ Radiology~and current medications noted below. Continue current treatment with the changes noted in the dictated addendum note Assessment: Vital Signs/I&O: Vital Signs Date Time Temp Pulse Resp B/P (MAP) Pulse Ox O2 Delivery O2 Flow Rate FiO2 02/03/21 06:24 98.3 68 14 134/81 (98) 97 Room Air I & O 02/02/21 02/02/21 02/03/21 15:00 23:00 07:00 Intake Total 360 ml 240 ml Output Total 600 ml 700 ml Balance 360 ml -360 ml -700 ml Labs: Laboratory Tests Test 02/03/21 05:30 02/03/21 09:25 Urine Collection Type U cath Urine Color Yellow Urine Clarity Hazy Urine pH 6.5 Urine Specific [place] 1.025 Urine Protein Neg (NEG-TRACE) Urine Glucose (UA) Neg mg/dL (NEG) Urine Ketones (Stick) Neg mg/dL (NEG) Urine Blood Trace (NEG) Urine Nitrite Pos (NEG) Urine Bilirubin Neg (NEG) Urine Urobilinogen Dipstick 0.2 mg/dL (0.2 mg/dL) Urine Leukocyte Esterase Small (NEG) Urine RBC Rare /HPF (0-2) Urine WBC 11-20 /HPF (0-4) Urine Squamous Epithelial Cells Few /LPF Urine Transitional Epithelial Cells Few /LPF Urine Bacteria Many /HPF (0-FEW) White Blood Count 7.1 x10^3/uL (4.0-11.0) Red Blood Count 4.28 x10^6/uL (3.50-5.40) Hemoglobin 13.1 g/dL (12.0-15.5) Hematocrit 39.5 % (36.0-47.0) Mean Corpuscular Volume 92 fL (79-100) Mean Corpuscular Hemoglobin 31 pg (25-35) Mean Corpuscular Hemoglobin Concent 33 g/dL (31-37) Red Cell Distribution Width 14.6 % (11.5-14.5) H Platelet Count 205 x10^3/uL (140-400) Neutrophils (%) (Auto) 77 % (31-73) H Lymphocytes (%) (Auto) 13 % (24-48) L Monocytes (%) (Auto) 9 % (0-9) Eosinophils (%) (Auto) 1 % (0-3) Basophils (%) (Auto) 0 % (0-3) Neutrophils # (Auto) 5.4 x10^3uL (1.8-7.7) Lymphocytes # (Auto) 0.9 x10^3/uL (1.0-4.8) L Monocytes # (Auto) 0.7 x10^3/uL (0.0-1.1) Eosinophils # (Auto) 0.0 x10^3/uL (0.0-0.7) Basophils # (Auto) 0.0 x10^3/uL (0.0-0.2) Current Medications: Meds: Laboratory Tests Test 02/03/21 05:30 02/03/21 09:25 Urine Collection Type U cath Urine Color Yellow Urine Clarity Hazy Urine pH 6.5 Urine Specific [place] 1.025 Urine Protein Neg Urine Glucose (UA) Neg mg/dL Urine Ketones (Stick) Neg mg/dL Urine Blood Trace Urine Nitrite Pos Urine Bilirubin Neg Urine Urobilinogen Dipstick 0.2 mg/dL Urine Leukocyte Esterase Small Urine RBC Rare /HPF Urine WBC 11-20 /HPF Urine Squamous Epithelial Cells Few /LPF Urine Transitional Epithelial Cells Few /LPF Urine Bacteria Many /HPF White Blood Count 7.1 x10^3/uL Red Blood Count 4.28 x10^6/uL Hemoglobin 13.1 g/dL Hematocrit 39.5 % Mean Corpuscular Volume 92 fL Mean Corpuscular Hemoglobin 31 pg Mean Corpuscular Hemoglobin Concent 33 g/dL Red Cell Distribution Width 14.6 % Platelet Count 205 x10^3/uL Neutrophils (%) (Auto) 77 % Lymphocytes (%) (Auto) 13 % Monocytes (%) (Auto) 9 % Eosinophils (%) (Auto) 1 % Basophils (%) (Auto) 0 % Neutrophils # (Auto) 5.4 x10^3uL Lymphocytes # (Auto) 0.9 x10^3/uL Monocytes # (Auto) 0.7 x10^3/uL Eosinophils # (Auto) 0.0 x10^3/uL Basophils # (Auto) 0.0 x10^3/uL Current Medications Medications (Trade) Dose Ordered Sig/Rufus Route PRN Reason Start Time Stop Time Status Last Admin Dose Admin Divalproex Sodium (Depakote Er) 250 mg BID PO 01/26/21 21:00 01/26/21 19:08 DC Donepezil HCl (Aricept) 10 mg DAILY PO 01/27/21 09:00 01/29/21 18:45 DC 01/29/21 08:42 Acetaminophen/ Hydrocodone Bitart (Lortab 10/325) 1 tab PRN BID PRN PO MODERATE TO SEVERE PAIN 01/26/21 16:15 02/02/21 23:26 Lorazepam (Ativan) 0.5 mg PRN TID PRN PO ANXIETY 01/26/21 16:15 01/26/21 18:01 DC 01/26/21 17:50 Memantine (Namenda) 10 mg DAILY PO 01/27/21 09:00 01/29/21 18:45 DC 01/29/21 08:41 Phenytoin Sodium (Dilantin) 100 mg QHS PO 01/26/21 21:00 01/31/21 23:00 DC 01/31/21 21:06 Quetiapine Fumarate (SEROquel) 25 mg BID PO 01/26/21 21:00 01/29/21 18:45 DC 01/29/21 08:41 Acetaminophen (Tylenol) 650 mg PRN Q6HRS PRN PO MILD PAIN / TEMP > 100.3'F 01/26/21 16:30 01/26/21 19:58 Multi-Ingredient Ointment (Analgesic [place]) 1 david PRN QID PRN TP MUSCLE PAIN 01/26/21 16:30 Al Hydroxide/Mg Hydroxide (Mylanta Plus Xs) 15 ml PRN AFTMEALHC PRN PO DYSPEPSIA 01/26/21 16:30 Magnesium Hydroxide (Milk Of Magnesia) 2,400 mg PRN QHS PRN PO CONSTIPATION 01/26/21 16:30 Olanzapine (ZyPREXA ZYDIS) 1.25 mg PRN Q2HR PRN PO PSYCHOSIS 01/26/21 18:00 01/28/21 23:35 DC 01/28/21 22:02 Divalproex Sodium (Depakote Sprinkles) 250 mg BID PO 01/26/21 21:00 5/2/21 20:44 Olanzapine (ZyPREXA ZYDIS) 2.5 mg PRN Q2HR PRN PO PSYCHOSIS 01/28/21 23:45 02/02/21 15:56 Trazodone HCl (Desyrel) 50 mg PRN QHS PRN PO INSOMNIA, MAY REPEAT X1 01/28/21 23:45 02/03/21 20:44 Quetiapine Fumarate (SEROquel) 25 mg 0900,1300,1700 PO 01/29/21 19:00 01/30/21 19:36 DC 01/30/21 17:25 Sertraline HCl (Zoloft) 25 mg DAILY PO 01/30/21 09:00 02/01/21 21:00 DC 02/01/21 08:35 Vitamin D (Vitamin D3) 50,000 unit WEEKLY PO 01/30/21 14:15 01/30/21 17:25 Quetiapine Fumarate (SEROquel) 37.5 mg 0900,1300,1700 PO 01/31/21 09:00 02/02/21 16:33 DC 02/02/21 12:41 Sertraline HCl (Zoloft) 50 mg DAILY PO 02/02/21 09:00 02/03/21 06:31 Tamsulosin HCl (Flomax) 0.4 mg QHS PO 01/31/21 21:00 02/03/21 20:44 Quetiapine Fumarate (SEROquel) 50 mg 0900,1200 PO 02/03/21 09:00 02/03/21 12:11 Quetiapine Fumarate (SEROquel) 25 mg QHS PO 02/02/21 21:00 02/03/21 20:44 Quetiapine Fumarate (SEROquel) 25 mg DAILY@1700 PO 02/03/21 18:00 02/03/21 18:00 Current Medications Medications (Trade) Dose Ordered Sig/Rufus Route PRN Reason Start Time Stop Time Status Last Admin Dose Admin Quetiapine Fumarate (SEROquel) 50 mg 0900,1200 PO 02/03/21 09:00 02/03/21 12:11 Quetiapine Fumarate (SEROquel) 25 mg DAILY@1700 PO 02/03/21 18:00 02/03/21 18:00 I have reviewed the current psychotropics carefully including drug interactions. Risk benefit ratio favors no change other than as noted in my dictated progress note. Diagnosis: Problems: (1) Major neurocognitive disorder (2) Impulse control disorder, unspecified (3) Anxiety disorder, unspecified (4) Dementia, vascular, with depression (5) Dementia, vascular, with delusions (6) Dementia in Alzheimer's disease with depression (7) Dementia in Alzheimer's disease with delusions (8) Dementia of the Alzheimer's type with early onset with behavioral disturbance JOSE MIGUEL MCGOWAN MD February 03, 2021 21:58
--- NOTE | 2021-02-03 22:15 | NUR ---
Pt restless and wandering unit this evening. Continues to be intrusive with peers. Compliant with crushed medications. Combative and yelling out during all ADLs.
[2021-02-04 06:05] VITALS: BP 124/56
--- NOTE | 2021-02-04 06:56 | PDOC ---
Exam Note: Tristan Note: This note is a late entry for 02/01/2021 covers elements not covered in my initial note. Subjective: The patient was seen individually in the evening of 02/01/2021 with Alma BUTLER, discussed and reviewed the chart. The patient slept 6-1/2 hours previous night. She remains confused, extremely labile in her mood. Her visited her on 02/01/2021 and it is unclear whether the patient recognized him. We will check valproic acid level in the morning of 02/02/2021. Review of Systems: No CV, , pulmonary, eye, ENT system symptoms on review. Reliability poor. Mental Status Exam: The patient is oriented to herself and situation. Insight and judgment, recent and remote memory, attention and concentration, fund of knowledge is poor consistent with her diagnoses. Laboratory Data: Reviewed. Impression: Major neurocognitive disorder Alzheimer vascular with delusion, depression, and behavioral disturbance. Anxiety disorder unspecified. Impulse control disorder unspecified. Plan: Continue psychotropics unchanged. Assessment: Vital Signs/I&O: Vital Signs Date Time Temp Pulse Resp B/P (MAP) Pulse Ox O2 Delivery O2 Flow Rate FiO2 02/04/21 06:05 98.2 111 15 124/56 (78) 94 02/03/21 06:24 Room Air I & O 02/03/21 02/03/21 02/04/21 15:00 23:00 07:00 Intake Total 360 ml 120 ml Output Total 600 ml Balance 360 ml -480 ml Labs: Laboratory Tests Test 02/03/21 09:25 White Blood Count 7.1 x10^3/uL (4.0-11.0) Red Blood Count 4.28 x10^6/uL (3.50-5.40) Hemoglobin 13.1 g/dL (12.0-15.5) Hematocrit 39.5 % (36.0-47.0) Mean Corpuscular Volume 92 fL (79-100) Mean Corpuscular Hemoglobin 31 pg (25-35) Mean Corpuscular Hemoglobin Concent 33 g/dL (31-37) Red Cell Distribution Width 14.6 % (11.5-14.5) H Platelet Count 205 x10^3/uL (140-400) Neutrophils (%) (Auto) 77 % (31-73) H Lymphocytes (%) (Auto) 13 % (24-48) L Monocytes (%) (Auto) 9 % (0-9) Eosinophils (%) (Auto) 1 % (0-3) Basophils (%) (Auto) 0 % (0-3) Neutrophils # (Auto) 5.4 x10^3uL (1.8-7.7) Lymphocytes # (Auto) 0.9 x10^3/uL (1.0-4.8) L Monocytes # (Auto) 0.7 x10^3/uL (0.0-1.1) Eosinophils # (Auto) 0.0 x10^3/uL (0.0-0.7) Basophils # (Auto) 0.0 x10^3/uL (0.0-0.2) Current Medications: Meds: Laboratory Tests Test 02/03/21 09:25 White Blood Count 7.1 x10^3/uL Red Blood Count 4.28 x10^6/uL Hemoglobin 13.1 g/dL Hematocrit 39.5 % Mean Corpuscular Volume 92 fL Mean Corpuscular Hemoglobin 31 pg Mean Corpuscular Hemoglobin Concent 33 g/dL Red Cell Distribution Width 14.6 % Platelet Count 205 x10^3/uL Neutrophils (%) (Auto) 77 % Lymphocytes (%) (Auto) 13 % Monocytes (%) (Auto) 9 % Eosinophils (%) (Auto) 1 % Basophils (%) (Auto) 0 % Neutrophils # (Auto) 5.4 x10^3uL Lymphocytes # (Auto) 0.9 x10^3/uL Monocytes # (Auto) 0.7 x10^3/uL Eosinophils # (Auto) 0.0 x10^3/uL Basophils # (Auto) 0.0 x10^3/uL Current Medications Medications (Trade) Dose Ordered Sig/Rufus Route PRN Reason Start Time Stop Time Status Last Admin Dose Admin Divalproex Sodium (Depakote Er) 250 mg BID PO 01/26/21 21:00 01/26/21 19:08 DC Donepezil HCl (Aricept) 10 mg DAILY PO 01/27/21 09:00 01/29/21 18:45 DC 01/29/21 08:42 Acetaminophen/ Hydrocodone Bitart (Lortab 10/325) 1 tab PRN BID PRN PO MODERATE TO SEVERE PAIN 01/26/21 16:15 5/1/21 23:26 Lorazepam (Ativan) 0.5 mg PRN TID PRN PO ANXIETY 01/26/21 16:15 01/26/21 18:01 DC 01/26/21 17:50 Memantine (Namenda) 10 mg DAILY PO 01/27/21 09:00 01/29/21 18:45 DC 01/29/21 08:41 Phenytoin Sodium (Dilantin) 100 mg QHS PO 01/26/21 21:00 01/31/21 23:00 DC 01/31/21 21:06 Quetiapine Fumarate (SEROquel) 25 mg BID PO 01/26/21 21:00 01/29/21 18:45 DC 01/29/21 08:41 Acetaminophen (Tylenol) 650 mg PRN Q6HRS PRN PO MILD PAIN / TEMP > 100.3'F 01/26/21 16:30 01/26/21 19:58 Multi-Ingredient Ointment (Analgesic [place]) 1 david PRN QID PRN TP MUSCLE PAIN 01/26/21 16:30 Al Hydroxide/Mg Hydroxide (Mylanta Plus Xs) 15 ml PRN AFTMEALHC PRN PO DYSPEPSIA 01/26/21 16:30 Magnesium Hydroxide (Milk Of Magnesia) 2,400 mg PRN QHS PRN PO CONSTIPATION 01/26/21 16:30 Olanzapine (ZyPREXA ZYDIS) 1.25 mg PRN Q2HR PRN PO PSYCHOSIS 01/26/21 18:00 01/28/21 23:35 DC 01/28/21 22:02 Divalproex Sodium (Depakote Sprinkles) 250 mg BID PO 01/26/21 21:00 02/03/21 20:44 Olanzapine (ZyPREXA ZYDIS) 2.5 mg PRN Q2HR PRN PO PSYCHOSIS 01/28/21 23:45 02/02/21 15:56 Trazodone HCl (Desyrel) 50 mg PRN QHS PRN PO INSOMNIA, MAY REPEAT X1 01/28/21 23:45 02/03/21 20:44 Quetiapine Fumarate (SEROquel) 25 mg 0900,1300,1700 PO 01/29/21 19:00 01/30/21 19:36 DC 01/30/21 17:25 Sertraline HCl (Zoloft) 25 mg DAILY PO 01/30/21 09:00 02/01/21 21:00 DC 02/01/21 08:35 Vitamin D (Vitamin D3) 50,000 unit WEEKLY PO 01/30/21 14:15 01/30/21 17:25 Quetiapine Fumarate (SEROquel) 37.5 mg 0900,1300,1700 PO 01/31/21 09:00 02/02/21 16:33 DC 02/02/21 12:41 Sertraline HCl (Zoloft) 50 mg DAILY PO 02/02/21 09:00 02/03/21 06:31 Tamsulosin HCl (Flomax) 0.4 mg QHS PO 01/31/21 21:00 02/03/21 20:44 Quetiapine Fumarate (SEROquel) 50 mg 0900,1200 PO 02/03/21 09:00 02/03/21 12:11 Quetiapine Fumarate (SEROquel) 25 mg QHS PO 02/02/21 21:00 02/03/21 20:44 Quetiapine Fumarate (SEROquel) 25 mg DAILY@1700 PO 02/03/21 18:00 02/03/21 18:00 Current Medications Medications (Trade) Dose Ordered Sig/Rufus Route PRN Reason Start Time Stop Time Status Last Admin Dose Admin Quetiapine Fumarate (SEROquel) 50 mg 0900,1200 PO 02/03/21 09:00 02/03/21 12:11 Quetiapine Fumarate (SEROquel) 25 mg DAILY@1700 PO 02/03/21 18:00 02/03/21 18:00 I have reviewed the current psychotropics carefully including drug interactions. Risk benefit ratio favors no change other than as noted in my dictated progress note. Diagnosis: Problems: (1) Major neurocognitive disorder (2) Impulse control disorder, unspecified (3) Anxiety disorder, unspecified (4) Dementia, vascular, with depression (5) Dementia, vascular, with delusions (6) Dementia in Alzheimer's disease with depression (7) Dementia in Alzheimer's disease with delusions (8) Dementia of the Alzheimer's type with early onset with behavioral disturbance JOSE MIGUEL MCGOWAN MD February 04, 2021 06:56
--- NOTE | 2021-02-04 07:28 | PDOC ---
Exam Note: Tristan Note: This note is a late entry for 02/02/2021 covers elements not covered in my initial note. Subjective: The patient was seen individually in the evening of 02/02/2021 with Ish BUTLER, discussed and reviewed the chart. The patient slept 5-1/4 hours previous night. She continues to retain urine and bladder scan was positive and yesterday 700 mL was obtained from the catheter. She was pacing, irritable, yelling at times. Valproic acid level therapeutic at 56. Review of Systems: No CV, , pulmonary, eye, ENT system symptoms on review. Mental Status Exam: The patient is oriented to herself and situation. Insight and judgment, recent and remote memory, attention and concentration, fund of knowledge is poor consistent with her diagnoses. Laboratory Data: Reviewed. Impression: Major neurocognitive disorder Alzheimer vascular with delusion, depression, and behavioral disturbance. Anxiety disorder unspecified. Impulse control disorder unspecified. Plan: The patient is currently on Seroquel 37.5 mg 0900, 1300 which we will increase to 50 mg and continue the 37.5 mg at 1700 hours. Maintain rest of the psychotropics unchanged. Continue Depakote at current dosage. Assessment: Vital Signs/I&O: Vital Signs Date Time Temp Pulse Resp B/P (MAP) Pulse Ox O2 Delivery O2 Flow Rate FiO2 02/04/21 06:05 98.2 111 15 124/56 (78) 94 02/03/21 06:24 Room Air I & O 02/03/21 02/03/21 02/04/21 15:00 23:00 07:00 Intake Total 360 ml 120 ml Output Total 600 ml Balance 360 ml -480 ml Labs: Laboratory Tests Test 02/03/21 09:25 White Blood Count 7.1 x10^3/uL (4.0-11.0) Red Blood Count 4.28 x10^6/uL (3.50-5.40) Hemoglobin 13.1 g/dL (12.0-15.5) Hematocrit 39.5 % (36.0-47.0) Mean Corpuscular Volume 92 fL (79-100) Mean Corpuscular Hemoglobin 31 pg (25-35) Mean Corpuscular Hemoglobin Concent 33 g/dL (31-37) Red Cell Distribution Width 14.6 % (11.5-14.5) H Platelet Count 205 x10^3/uL (140-400) Neutrophils (%) (Auto) 77 % (31-73) H Lymphocytes (%) (Auto) 13 % (24-48) L Monocytes (%) (Auto) 9 % (0-9) Eosinophils (%) (Auto) 1 % (0-3) Basophils (%) (Auto) 0 % (0-3) Neutrophils # (Auto) 5.4 x10^3uL (1.8-7.7) Lymphocytes # (Auto) 0.9 x10^3/uL (1.0-4.8) L Monocytes # (Auto) 0.7 x10^3/uL (0.0-1.1) Eosinophils # (Auto) 0.0 x10^3/uL (0.0-0.7) Basophils # (Auto) 0.0 x10^3/uL (0.0-0.2) Current Medications: Meds: Laboratory Tests Test 02/03/21 09:25 White Blood Count 7.1 x10^3/uL Red Blood Count 4.28 x10^6/uL Hemoglobin 13.1 g/dL Hematocrit 39.5 % Mean Corpuscular Volume 92 fL Mean Corpuscular Hemoglobin 31 pg Mean Corpuscular Hemoglobin Concent 33 g/dL Red Cell Distribution Width 14.6 % Platelet Count 205 x10^3/uL Neutrophils (%) (Auto) 77 % Lymphocytes (%) (Auto) 13 % Monocytes (%) (Auto) 9 % Eosinophils (%) (Auto) 1 % Basophils (%) (Auto) 0 % Neutrophils # (Auto) 5.4 x10^3uL Lymphocytes # (Auto) 0.9 x10^3/uL Monocytes # (Auto) 0.7 x10^3/uL Eosinophils # (Auto) 0.0 x10^3/uL Basophils # (Auto) 0.0 x10^3/uL Current Medications Medications (Trade) Dose Ordered Sig/Rufus Route PRN Reason Start Time Stop Time Status Last Admin Dose Admin Divalproex Sodium (Depakote Er) 250 mg BID PO 01/26/21 21:00 01/26/21 19:08 DC Donepezil HCl (Aricept) 10 mg DAILY PO 01/27/21 09:00 01/29/21 18:45 DC 01/29/21 08:42 Acetaminophen/ Hydrocodone Bitart (Lortab 10/325) 1 tab PRN BID PRN PO MODERATE TO SEVERE PAIN 01/26/21 16:15 02/02/21 23:26 Lorazepam (Ativan) 0.5 mg PRN TID PRN PO ANXIETY 01/26/21 16:15 01/26/21 18:01 DC 01/26/21 17:50 Memantine (Namenda) 10 mg DAILY PO 01/27/21 09:00 01/29/21 18:45 DC 01/29/21 08:41 Phenytoin Sodium (Dilantin) 100 mg QHS PO 01/26/21 21:00 01/31/21 23:00 DC 01/31/21 21:06 Quetiapine Fumarate (SEROquel) 25 mg BID PO 01/26/21 21:00 01/29/21 18:45 DC 01/29/21 08:41 Acetaminophen (Tylenol) 650 mg PRN Q6HRS PRN PO MILD PAIN / TEMP > 100.3'F 01/26/21 16:30 01/26/21 19:58 Multi-Ingredient Ointment (Analgesic [place]) 1 david PRN QID PRN TP MUSCLE PAIN 01/26/21 16:30 Al Hydroxide/Mg Hydroxide (Mylanta Plus Xs) 15 ml PRN AFTMEALHC PRN PO DYSPEPSIA 01/26/21 16:30 Magnesium Hydroxide (Milk Of Magnesia) 2,400 mg PRN QHS PRN PO CONSTIPATION 01/26/21 16:30 Olanzapine (ZyPREXA ZYDIS) 1.25 mg PRN Q2HR PRN PO PSYCHOSIS 01/26/21 18:00 01/28/21 23:35 DC 01/28/21 22:02 Divalproex Sodium (Depakote Sprinkles) 250 mg BID PO 01/26/21 21:00 02/03/21 20:44 Olanzapine (ZyPREXA ZYDIS) 2.5 mg PRN Q2HR PRN PO PSYCHOSIS 01/28/21 23:45 02/02/21 15:56 Trazodone HCl (Desyrel) 50 mg PRN QHS PRN PO INSOMNIA, MAY REPEAT X1 01/28/21 23:45 02/03/21 20:44 Quetiapine Fumarate (SEROquel) 25 mg 0900,1300,1700 PO 01/29/21 19:00 01/30/21 19:36 DC 01/30/21 17:25 Sertraline HCl (Zoloft) 25 mg DAILY PO 01/30/21 09:00 02/01/21 21:00 DC 02/01/21 08:35 Vitamin D (Vitamin D3) 50,000 unit WEEKLY PO 01/30/21 14:15 01/30/21 17:25 Quetiapine Fumarate (SEROquel) 37.5 mg 0900,1300,1700 PO 01/31/21 09:00 02/02/21 16:33 DC 02/02/21 12:41 Sertraline HCl (Zoloft) 50 mg DAILY PO 02/02/21 09:00 02/03/21 06:31 Tamsulosin HCl (Flomax) 0.4 mg QHS PO 01/31/21 21:00 02/03/21 20:44 Quetiapine Fumarate (SEROquel) 50 mg 0900,1200 PO 02/03/21 09:00 02/03/21 12:11 Quetiapine Fumarate (SEROquel) 25 mg QHS PO 02/02/21 21:00 02/03/21 20:44 Quetiapine Fumarate (SEROquel) 25 mg DAILY@1700 PO 02/03/21 18:00 02/03/21 18:00 Current Medications Medications (Trade) Dose Ordered Sig/Rufus Route PRN Reason Start Time Stop Time Status Last Admin Dose Admin Quetiapine Fumarate (SEROquel) 50 mg 0900,1200 PO 02/03/21 09:00 02/03/21 12:11 Quetiapine Fumarate (SEROquel) 25 mg DAILY@1700 PO 02/03/21 18:00 02/03/21 18:00 I have reviewed the current psychotropics carefully including drug interactions. Risk benefit ratio favors no change other than as noted in my dictated progress note. Diagnosis: Problems: (1) Major neurocognitive disorder (2) Impulse control disorder, unspecified (3) Anxiety disorder, unspecified (4) Dementia, vascular, with depression (5) Dementia, vascular, with delusions (6) Dementia in Alzheimer's disease with depression (7) Dementia in Alzheimer's disease with delusions (8) Dementia of the Alzheimer's type with early onset with behavioral disturbance JOSE MIGUEL MCGOWAN MD February 04, 2021 07:28
--- NOTE | 2021-02-04 07:52 | PDOC ---
Exam Note: Tristan Note: This note is a late entry for 02/03/2021 covers elements not covered in my initial note. Subjective: The patient was seen individually in the evening of 02/03/2021 with Nora BUTLER, discussed and reviewed the chart. The patient slept 5 hours previous night. Overall she remains confused, anxious, restless. She continues to retain urine and has to have a straight catheter done. Valproic acid level today is 56. UA has reflex to culture. She has been wandering, intermittently yelling, restless. It took 3 staff members to toilet her. Review of Systems: No CV, , pulmonary, eye, ENT system symptoms on review. Mental Status Exam: The patient is oriented to herself and situation. Insight and judgment, recent and remote memory, attention and concentration, fund of knowledge is poor consistent with her diagnoses. Laboratory Data: Reviewed. Impression: Major neurocognitive disorder Alzheimer vascular with delusion, depression, and behavioral disturbance. Anxiety disorder unspecified. Impulse control disorder unspecified. Plan: Continue current psychotropics from initial note. Start Seroquel 25 mg at 5 p;m. Rest unchanged for now. Assessment: Vital Signs/I&O: Vital Signs Date Time Temp Pulse Resp B/P (MAP) Pulse Ox O2 Delivery O2 Flow Rate FiO2 02/04/21 06:05 98.2 111 15 124/56 (78) 94 02/03/21 06:24 Room Air I & O 02/03/21 02/03/21 02/04/21 14:59 22:59 06:59 Intake Total 360 ml 120 ml Output Total 600 ml Balance 360 ml -480 ml Labs: Laboratory Tests Test 02/03/21 09:25 White Blood Count 7.1 x10^3/uL (4.0-11.0) Red Blood Count 4.28 x10^6/uL (3.50-5.40) Hemoglobin 13.1 g/dL (12.0-15.5) Hematocrit 39.5 % (36.0-47.0) Mean Corpuscular Volume 92 fL (79-100) Mean Corpuscular Hemoglobin 31 pg (25-35) Mean Corpuscular Hemoglobin Concent 33 g/dL (31-37) Red Cell Distribution Width 14.6 % (11.5-14.5) H Platelet Count 205 x10^3/uL (140-400) Neutrophils (%) (Auto) 77 % (31-73) H Lymphocytes (%) (Auto) 13 % (24-48) L Monocytes (%) (Auto) 9 % (0-9) Eosinophils (%) (Auto) 1 % (0-3) Basophils (%) (Auto) 0 % (0-3) Neutrophils # (Auto) 5.4 x10^3uL (1.8-7.7) Lymphocytes # (Auto) 0.9 x10^3/uL (1.0-4.8) L Monocytes # (Auto) 0.7 x10^3/uL (0.0-1.1) Eosinophils # (Auto) 0.0 x10^3/uL (0.0-0.7) Basophils # (Auto) 0.0 x10^3/uL (0.0-0.2) Current Medications: Meds: Laboratory Tests Test 02/03/21 09:25 White Blood Count 7.1 x10^3/uL Red Blood Count 4.28 x10^6/uL Hemoglobin 13.1 g/dL Hematocrit 39.5 % Mean Corpuscular Volume 92 fL Mean Corpuscular Hemoglobin 31 pg Mean Corpuscular Hemoglobin Concent 33 g/dL Red Cell Distribution Width 14.6 % Platelet Count 205 x10^3/uL Neutrophils (%) (Auto) 77 % Lymphocytes (%) (Auto) 13 % Monocytes (%) (Auto) 9 % Eosinophils (%) (Auto) 1 % Basophils (%) (Auto) 0 % Neutrophils # (Auto) 5.4 x10^3uL Lymphocytes # (Auto) 0.9 x10^3/uL Monocytes # (Auto) 0.7 x10^3/uL Eosinophils # (Auto) 0.0 x10^3/uL Basophils # (Auto) 0.0 x10^3/uL Current Medications Medications (Trade) Dose Ordered Sig/Rufus Route PRN Reason Start Time Stop Time Status Last Admin Dose Admin Divalproex Sodium (Depakote Er) 250 mg BID PO 01/26/21 21:00 01/26/21 19:08 DC Donepezil HCl (Aricept) 10 mg DAILY PO 01/27/21 09:00 01/29/21 18:45 DC 01/29/21 08:42 Acetaminophen/ Hydrocodone Bitart (Lortab 10/325) 1 tab PRN BID PRN PO MODERATE TO SEVERE PAIN 01/26/21 16:15 02/02/21 23:26 Lorazepam (Ativan) 0.5 mg PRN TID PRN PO ANXIETY 01/26/21 16:15 01/26/21 18:01 DC 01/26/21 17:50 Memantine (Namenda) 10 mg DAILY PO 01/27/21 09:00 01/29/21 18:45 DC 01/29/21 08:41 Phenytoin Sodium (Dilantin) 100 mg QHS PO 01/26/21 21:00 01/31/21 23:00 DC 01/31/21 21:06 Quetiapine Fumarate (SEROquel) 25 mg BID PO 01/26/21 21:00 01/29/21 18:45 DC 01/29/21 08:41 Acetaminophen (Tylenol) 650 mg PRN Q6HRS PRN PO MILD PAIN / TEMP > 100.3'F 01/26/21 16:30 01/26/21 19:58 Multi-Ingredient Ointment (Analgesic [place]) 1 david PRN QID PRN TP MUSCLE PAIN 01/26/21 16:30 Al Hydroxide/Mg Hydroxide (Mylanta Plus Xs) 15 ml PRN AFTMEALHC PRN PO DYSPEPSIA 01/26/21 16:30 Magnesium Hydroxide (Milk Of Magnesia) 2,400 mg PRN QHS PRN PO CONSTIPATION 01/26/21 16:30 Olanzapine (ZyPREXA ZYDIS) 1.25 mg PRN Q2HR PRN PO PSYCHOSIS 01/26/21 18:00 01/28/21 23:35 DC 01/28/21 22:02 Divalproex Sodium (Depakote Sprinkles) 250 mg BID PO 01/26/21 21:00 02/03/21 20:44 Olanzapine (ZyPREXA ZYDIS) 2.5 mg PRN Q2HR PRN PO PSYCHOSIS 01/28/21 23:45 02/02/21 15:56 Trazodone HCl (Desyrel) 50 mg PRN QHS PRN PO INSOMNIA, MAY REPEAT X1 01/28/21 23:45 02/03/21 20:44 Quetiapine Fumarate (SEROquel) 25 mg 0900,1300,1700 PO 01/29/21 19:00 01/30/21 19:36 DC 01/30/21 17:25 Sertraline HCl (Zoloft) 25 mg DAILY PO 01/30/21 09:00 02/01/21 21:00 DC 02/01/21 08:35 Vitamin D (Vitamin D3) 50,000 unit WEEKLY PO 01/30/21 14:15 01/30/21 17:25 Quetiapine Fumarate (SEROquel) 37.5 mg 0900,1300,1700 PO 01/31/21 09:00 02/02/21 16:33 DC 02/02/21 12:41 Sertraline HCl (Zoloft) 50 mg DAILY PO 02/02/21 09:00 02/03/21 06:31 Tamsulosin HCl (Flomax) 0.4 mg QHS PO 01/31/21 21:00 02/03/21 20:44 Quetiapine Fumarate (SEROquel) 50 mg 0900,1200 PO 02/03/21 09:00 02/03/21 12:11 Quetiapine Fumarate (SEROquel) 25 mg QHS PO 02/02/21 21:00 02/03/21 20:44 Quetiapine Fumarate (SEROquel) 25 mg DAILY@1700 PO 02/03/21 18:00 02/03/21 18:00 Current Medications Medications (Trade) Dose Ordered Sig/Rufus Route PRN Reason Start Time Stop Time Status Last Admin Dose Admin Quetiapine Fumarate (SEROquel) 50 mg 0900,1200 PO 02/03/21 09:00 02/03/21 12:11 Quetiapine Fumarate (SEROquel) 25 mg DAILY@1700 PO 02/03/21 18:00 02/03/21 18:00 I have reviewed the current psychotropics carefully including drug interactions. Risk benefit ratio favors no change other than as noted in my dictated progress note. Diagnosis: Problems: (1) Major neurocognitive disorder (2) Impulse control disorder, unspecified (3) Anxiety disorder, unspecified (4) Dementia, vascular, with depression (5) Dementia, vascular, with delusions (6) Dementia in Alzheimer's disease with depression (7) Dementia in Alzheimer's disease with delusions (8) Dementia of the Alzheimer's type with early onset with behavioral disturbance JOSE MIGUEL MCGOWAN MD February 04, 2021 07:52
[2021-02-04] MEDS: QUEtiapine 50 MG TABLET. PO SCH ×2 (08:31→12:41)
[2021-02-04] MEDS: DIVALPROEX 125 MG CAP.SPRINK PO SCH ×2 (08:31→21:17)
[2021-02-04] MEDS: SERTRALINE 50 MG TABLET. PO SCH (08:31)
--- NOTE | 2021-02-04 12:51 | NUR ---
WEEKLY ACTIVITY THERAPY NOTE Date of Admission:01/26/21 Date of AT Assessment:01/29 Precipitating behaviors that initiated intake and admission:combative, aggressive, not sleeping, verbally abusive, labile mood, wandering, hallucinations. Goal aimed: increase relaxation and sensory stimulation Initial Goal: Pt will participate in at least three individual or group Activity Therapy sessions before discharge. Weekly progress towards goal: did not achieve, 0/3 Group participation level: none Weekly highlights: Behaviors observed: tearful, often wandering, yelling out Plan: no change to goal Beneficial adaptations:
--- NOTE | 2021-02-04 12:57 | TX PLAN ---
Interdisciplinary Tx Plan Admission Information Jan 26, 2021 at 16:12 Legal Status (on Admission): Voluntary, DPOA DPOA/Guardian Name: Miky Denise-spouse Contact Other Contact Name: Miky Denise Other Contact Verified Code Status: Full Code Allergies: Coded Allergies: No Known Drug Allergies (Unverified , 01/26/21) Estimated Length of Stay: 14 Diagnoses Primary Diagnosis: Dementia with behavioral disturbance Reasons for Admission: Aggressive, Agitated, Sig. Change Sleep, Anxiety/Panic, Hallucinations, Combative, Confusion/Disoriented, Poor impulse control Problem in Patient's Words: Jillian is having progressive memory loss and most recently has become combative with spouse prompting her admission to [facility]. Additional Admission Comments: Per intake record, combative, aggressive, not sleeping, verbaly abusive, mood lability, wandering, hallucinating. Problems Active Problems: Combative, aggressive insomnia verbally abusive, yelling out resisits care labile mood wandering and door checking hallucinating Inactive Problems: medication compliant Pt Strengths/Limitations Ability for [place]: Poor Cognitive Functioning/Ability: Poor Communication Skills/Ability: Poor Financial Resources: Fair Insight/Judgement: Poor Intellectual Ability: Fair Physical Health: Fair Social Skills: Poor Stability in Family: Fair Verbal Skills: Poor Discharge Criteria Discharge Criteria: Adequate arrangements @DC, Improved behavior, Improved mood/thought Preliminary Discharge Plan Preliminary DC Plan: Memory Care, Home Special Precautions Special Precautions: Agitation/Assault Fall Risk: High Initial D/C Plan Jillian spouse has expressed desire fore Jillian to return home. For safety reasons, it has been recommended that Jillian be placed in memory care. Identified Discharge Needs: Jillian has fallen down the stairs in her home several times. [place] and the police assisted to locate her with a helicpoter search. SW discussed placement in memory care as a safer option then Miky taking Jillian home. SW suggested that Miky tour [facility]. Identified Problems/Hx/Goals Objectives/Short-Term Goals Short Term Goals: Control abnormal behavior, Dec. Aggression, Dec. Anxiety/Panic, Dec. Hallucination/Delus, Medication Stabilization, Monitor Med Effects Short Term Goals in Patient's: Jillian is unable to establish goals. Per spouse at time of intake, mood and behavior stabilization in order to easier care for Jillian. Interventions/Frequency Staff Interventions/Frequency&: Nursing to provide routine safety checks, medication administration, and adl support. Psychiatrist to see three times weekly. SW to see twice weekly. 1:1 visits from recreational therapy to provide socialization. History Vocational History: Jillian went to work for [employer] at age 20. She worked her way up in the company and traveled for [employer]. She worked at [employer] 43 years before being approved for disbality around 2006 for cognitive changes. Social: Unknown Education: Jillian graduated from high school. Community Follow-up Placement needed, f/u with PCP and out patient psychiatry Community Provider/Family Inpu: Treatment team meeting was held on 01/28/21. SW had left message for spouse/POA with invite to particiapte in team meeting via phone. SW recieved voice message from spouse on 01/29/21 indicating he was not well and was considering going to the [place]. SW has been unable to reach spouse at this time. blasting entryman of treatment plan was completed on 01/29/21. Treatment Plan Explained Patient/Logistics Service Representative had this treatment plan explained to him/her as indicated by the signature below and has been given the opportunity to ask questions and make suggestions: Date: Patient/Logistics Service Representative Signature: Status Update Update WEEKLY NOTE/UPDATE: Jillian is averaging 50% of meal intakes and five hours of sleep at night. Diet was changed to pureed at spouse's recommendation and Jillian seems to be consuming more. Jillian is unable to make her needs known to others and is dependent on staff to anticipate needs and cares. She is unable to sequence tasks in order to complete activities of daily living. Jillian tends to be fidgety and restless, wandering about the unit and door checking. She is resistant to cares and yells out at times of cares. Jillian has a urine culture pending for possible UTI. Jillian is also having periods of retaining urine and nurses perform straight cath's as needed. Miky, spouse, was involved in team meeting via phone. Per Miky's preference, will contact Aster Walden tennis director at [facility], to see if Jillian rashid be able to return there to memory care. Tentative d/c date around 02/13/21. ALEXANDRA PAUL February 04, 2021 12:57
--- NOTE | 2021-02-04 13:56 | NUR ---
Shift Summary Patient has improved on intake with meals once they were changed to pureed. Patient continues to pace hallways, yelling out, checking all doors to see if they are able to be opened, unable to be distracted.
[2021-02-04 15:48] VITALS: BP 114/61
[2021-02-04] MEDS: QUEtiapine 25 MG TABLET. PO SCH ×2 (17:34→21:17)
[2021-02-04] MEDS: TAMSULOSIN 0.4 MG CAP.ER.24H. PO SCH (21:17)
--- NOTE | 2021-02-04 21:55 | PDOC ---
Exam Note: Tristan Note: Please also refer to the separate dictated note~for this date of service dictated separately.~Patient seen individually. Discussed the patient with Nursing staff reviewed the chart.~Reviewed interim history and current functioning. Reviewed vital signs,~Labs/ Radiology~and current medications noted below. Continue current treatment with the changes noted in the dictated addendum note Assessment: Vital Signs/I&O: Vital Signs Date Time Temp Pulse Resp B/P (MAP) Pulse Ox O2 Delivery O2 Flow Rate FiO2 02/04/21 15:48 97.7 80 16 114/61 (78) 95 02/03/21 06:24 Room Air I & O 02/03/21 02/03/21 02/04/21 15:00 23:00 07:00 Intake Total 360 ml 120 ml Output Total 600 ml Balance 360 ml -480 ml Current Medications: Meds: Current Medications Medications (Trade) Dose Ordered Sig/Rufus Route PRN Reason Start Time Stop Time Status Last Admin Dose Admin Divalproex Sodium (Depakote Er) 250 mg BID PO 01/26/21 21:00 01/26/21 19:08 DC Donepezil HCl (Aricept) 10 mg DAILY PO 01/27/21 09:00 01/29/21 18:45 DC 01/29/21 08:42 Acetaminophen/ Hydrocodone Bitart (Lortab 10/325) 1 tab PRN BID PRN PO MODERATE TO SEVERE PAIN 01/26/21 16:15 02/02/21 23:26 Lorazepam (Ativan) 0.5 mg PRN TID PRN PO ANXIETY 01/26/21 16:15 01/26/21 18:01 DC 01/26/21 17:50 Memantine (Namenda) 10 mg DAILY PO 01/27/21 09:00 01/29/21 18:45 DC 01/29/21 08:41 Phenytoin Sodium (Dilantin) 100 mg QHS PO 01/26/21 21:00 01/31/21 23:00 DC 01/31/21 21:06 Quetiapine Fumarate (SEROquel) 25 mg BID PO 01/26/21 21:00 01/29/21 18:45 DC 01/29/21 08:41 Acetaminophen (Tylenol) 650 mg PRN Q6HRS PRN PO MILD PAIN / TEMP > 100.3'F 01/26/21 16:30 01/26/21 19:58 Multi-Ingredient Ointment (Analgesic [place]) 1 david PRN QID PRN TP MUSCLE PAIN 01/26/21 16:30 Al Hydroxide/Mg Hydroxide (Mylanta Plus Xs) 15 ml PRN AFTMEALHC PRN PO DYSPEPSIA 01/26/21 16:30 Magnesium Hydroxide (Milk Of Magnesia) 2,400 mg PRN QHS PRN PO CONSTIPATION 01/26/21 16:30 Olanzapine (ZyPREXA ZYDIS) 1.25 mg PRN Q2HR PRN PO PSYCHOSIS 01/26/21 18:00 01/28/21 23:35 DC 01/28/21 22:02 Divalproex Sodium (Depakote Sprinkles) 250 mg BID PO 01/26/21 21:00 02/04/21 21:17 Olanzapine (ZyPREXA ZYDIS) 2.5 mg PRN Q2HR PRN PO PSYCHOSIS 01/28/21 23:45 02/02/21 15:56 Trazodone HCl (Desyrel) 50 mg PRN QHS PRN PO INSOMNIA, MAY REPEAT X1 01/28/21 23:45 02/03/21 20:44 Quetiapine Fumarate (SEROquel) 25 mg 0900,1300,1700 PO 01/29/21 19:00 01/30/21 19:36 DC 01/30/21 17:25 Sertraline HCl (Zoloft) 25 mg DAILY PO 01/30/21 09:00 02/01/21 21:00 DC 02/01/21 08:35 Vitamin D (Vitamin D3) 50,000 unit WEEKLY PO 01/30/21 14:15 01/30/21 17:25 Quetiapine Fumarate (SEROquel) 37.5 mg 0900,1300,1700 PO 01/31/21 09:00 02/02/21 16:33 DC 02/02/21 12:41 Sertraline HCl (Zoloft) 50 mg DAILY PO 02/02/21 09:00 02/04/21 08:31 Tamsulosin HCl (Flomax) 0.4 mg QHS PO 01/31/21 21:00 02/04/21 21:17 Quetiapine Fumarate (SEROquel) 50 mg 0900,1200 PO 02/03/21 09:00 02/04/21 12:41 Quetiapine Fumarate (SEROquel) 25 mg QHS PO 02/02/21 21:00 02/04/21 21:17 Quetiapine Fumarate (SEROquel) 25 mg DAILY@1700 PO 02/03/21 18:00 02/04/21 17:34 I have reviewed the current psychotropics carefully including drug interactions. Risk benefit ratio favors no change other than as noted in my dictated progress note. Diagnosis: Problems: (1) Major neurocognitive disorder (2) Impulse control disorder, unspecified (3) Anxiety disorder, unspecified (4) Dementia, vascular, with depression (5) Dementia, vascular, with delusions (6) Dementia in Alzheimer's disease with depression (7) Dementia in Alzheimer's disease with delusions (8) Dementia of the Alzheimer's type with early onset with behavioral disturbance JOSE MIGUEL MCGOWAN MD February 04, 2021 21:55
[2021-02-04] MEDS: traZODone 50 MG TABLET. PO PRN (22:08)
--- NOTE | 2021-02-05 01:05 | NUR ---
Nursing Note Pt confused, wanders gets angry at times. Difficult to redirect, sat on toilet and urinated a small amount and had a small bowel movement. Pt speaks in a word salad unless she is very angry and frustrated then she will swear and string a few words together. Trazodone and Zydis given at HS. Escorted pt back to bed multiple times with staff times 2. Now resting.
[2021-02-05 04:24] VITALS: BP 115/62
[2021-02-05] MEDS: DIVALPROEX 125 MG CAP.SPRINK PO SCH ×2 (08:25→20:28)
[2021-02-05] MEDS: QUEtiapine 50 MG TABLET. PO SCH ×2 (08:25→12:49)
[2021-02-05] MEDS: SERTRALINE 50 MG TABLET. PO SCH (08:25)
--- NOTE | 2021-02-05 10:20 | NUR ---
Miky, River's spouse/POA, was involved in team meeting via phone held on 02/04/21. Follow up call to Miky this morning to further discuss future care for Jillian. Miky is interested to see if Jillian can be reconsidered to return to [facility] on their memory care unit. Call placed to Aster, director paid media at [facility], who shared that because Jillian has not had the Covid vaccines and requires a secured unit, she would not be eligible for readmission at this time. The quarantine unit at [facility] is not secured. Called Miky back to inform of the above information. Miky was agreeable for DEEPA to contact [facility] about bed availability. Call placed to Lakisha, director paid media at [facility], left message with request for return phone call. Awaiting call. Addendum: 02/05/21 at 1235 by ALEXANDRA ARENAS Received return call from Lakisha at [facility] who is willing to review a referral on Jillian. Currently, [facility]'s quarantine unit is closed for meghan repairs but Lakisha indicated the facility international marketing executive will return tomorrow and she will know more information on the status of the quarantine unit. DEEPA called Miky back to share this information and encourage him to schedule an appointment with Lakisha for a tour of their visiting room. Also, encouraged Miky to research and identify several other memory care communities that he would be interested in for care home care for Jillian.
[2021-02-05] MEDS: ASCORBIC ACID 1,000 MG TABLET PO SCH (12:49)
[2021-02-05 15:29] VITALS: BP 110/68
[2021-02-05] MEDS: QUEtiapine 25 MG TABLET. PO SCH ×2 (17:09→20:29)
--- NOTE | 2021-02-05 18:30 | NUR ---
Patient has been labile, agitated, repeatedly calling out, and intrusive with other patients. She was pushing wheelchair-bound patients against their will. She spends most of her time wandering in the cantor and door checking. Will continue to monitor and report to oncoming.
[2021-02-05] MEDS: traZODone 50 MG TABLET. PO PRN (20:29)
[2021-02-05] MEDS: TAMSULOSIN 0.4 MG CAP.ER.24H. PO SCH (20:29)
--- NOTE | 2021-02-05 22:46 | PDOC ---
Exam Note: Tristan Note: Please also refer to the separate dictated note~for this date of service dictated separately.~Patient seen individually. Discussed the patient with Nursing staff reviewed the chart.~Reviewed interim history and current functioning. Reviewed vital signs,~Labs/ Radiology~and current medications noted below. Continue current treatment with the changes noted in the dictated addendum note Assessment: Vital Signs/I&O: Vital Signs Date Time Temp Pulse Resp B/P (MAP) Pulse Ox O2 Delivery O2 Flow Rate FiO2 02/05/21 15:29 97.8 96 20 110/68 (82) 96 02/03/21 06:24 Room Air I & O 02/04/21 02/04/21 02/05/21 15:00 23:00 07:00 Intake Total 360 ml 400 ml 100 ml Balance 360 ml 400 ml 100 ml Current Medications: Meds: Current Medications Medications (Trade) Dose Ordered Sig/Rufus Route PRN Reason Start Time Stop Time Status Last Admin Dose Admin Divalproex Sodium (Depakote Er) 250 mg BID PO 01/26/21 21:00 01/26/21 19:08 DC Donepezil HCl (Aricept) 10 mg DAILY PO 01/27/21 09:00 01/29/21 18:45 DC 01/29/21 08:42 Acetaminophen/ Hydrocodone Bitart (Lortab 10/325) 1 tab PRN BID PRN PO MODERATE TO SEVERE PAIN 01/26/21 16:15 02/02/21 23:26 Lorazepam (Ativan) 0.5 mg PRN TID PRN PO ANXIETY 01/26/21 16:15 01/26/21 18:01 DC 01/26/21 17:50 Memantine (Namenda) 10 mg DAILY PO 01/27/21 09:00 01/29/21 18:45 DC 01/29/21 08:41 Phenytoin Sodium (Dilantin) 100 mg QHS PO 01/26/21 21:00 01/31/21 23:00 DC 01/31/21 21:06 Quetiapine Fumarate (SEROquel) 25 mg BID PO 01/26/21 21:00 01/29/21 18:45 DC 01/29/21 08:41 Acetaminophen (Tylenol) 650 mg PRN Q6HRS PRN PO MILD PAIN / TEMP > 100.3'F 01/26/21 16:30 01/26/21 19:58 Multi-Ingredient Ointment (Analgesic [place]) 1 david PRN QID PRN TP MUSCLE PAIN 01/26/21 16:30 Al Hydroxide/Mg Hydroxide (Mylanta Plus Xs) 15 ml PRN AFTMEALHC PRN PO DYSPEPSIA 01/26/21 16:30 Magnesium Hydroxide (Milk Of Magnesia) 2,400 mg PRN QHS PRN PO CONSTIPATION 01/26/21 16:30 Olanzapine (ZyPREXA ZYDIS) 1.25 mg PRN Q2HR PRN PO PSYCHOSIS 01/26/21 18:00 01/28/21 23:35 DC 01/28/21 22:02 Divalproex Sodium (Depakote Sprinkles) 250 mg BID PO 01/26/21 21:00 02/05/21 20:28 Olanzapine (ZyPREXA ZYDIS) 2.5 mg PRN Q2HR PRN PO PSYCHOSIS 01/28/21 23:45 02/05/21 20:29 Trazodone HCl (Desyrel) 50 mg PRN QHS PRN PO INSOMNIA, MAY REPEAT X1 01/28/21 23:45 02/05/21 20:29 Quetiapine Fumarate (SEROquel) 25 mg 0900,1300,1700 PO 01/29/21 19:00 01/30/21 19:36 DC 01/30/21 17:25 Sertraline HCl (Zoloft) 25 mg DAILY PO 01/30/21 09:00 02/01/21 21:00 DC 02/01/21 08:35 Vitamin D (Vitamin D3) 50,000 unit WEEKLY PO 01/30/21 14:15 01/30/21 17:25 Quetiapine Fumarate (SEROquel) 37.5 mg 0900,1300,1700 PO 01/31/21 09:00 02/02/21 16:33 DC 02/02/21 12:41 Sertraline HCl (Zoloft) 50 mg DAILY PO 02/02/21 09:00 02/05/21 08:25 Tamsulosin HCl (Flomax) 0.4 mg QHS PO 01/31/21 21:00 02/05/21 20:29 Quetiapine Fumarate (SEROquel) 50 mg 0900,1200 PO 02/03/21 09:00 02/05/21 18:41 DC 02/05/21 12:49 Quetiapine Fumarate (SEROquel) 25 mg QHS PO 02/02/21 21:00 02/05/21 20:29 Quetiapine Fumarate (SEROquel) 25 mg DAILY@1700 PO 02/03/21 18:00 02/05/21 18:41 DC 02/05/21 17:09 Ascorbic Acid (Vitamin C) 1,000 mg DAILY PO 02/05/21 09:00 02/05/21 12:49 Quetiapine Fumarate (SEROquel) 50 mg 0900,1300,1700 PO 02/06/21 09:00 Current Medications Medications (Trade) Dose Ordered Sig/Rufus Route PRN Reason Start Time Stop Time Status Last Admin Dose Admin Ascorbic Acid (Vitamin C) 1,000 mg DAILY PO 02/05/21 09:00 02/05/21 12:49 I have reviewed the current psychotropics carefully including drug interactions. Risk benefit ratio favors no change other than as noted in my dictated progress note. Diagnosis: Problems: (1) Major neurocognitive disorder (2) Impulse control disorder, unspecified (3) Anxiety disorder, unspecified (4) Dementia, vascular, with depression (5) Dementia, vascular, with delusions (6) Dementia in Alzheimer's disease with depression (7) Dementia in Alzheimer's disease with delusions (8) Dementia of the Alzheimer's type with early onset with behavioral disturbance JOSE MIGUEL MCGOWAN MD February 05, 2021 22:46
--- NOTE | 2021-02-06 02:40 | NUR ---
Nursing Note Pt wanders the unit confused and labile med compliant and cooperative. Incontinent of both B&B, ambulates the unit alert to self only. Pt is loud talks in a word salad, but can respond appropriately at times.
[2021-02-06 06:23] VITALS: BP 93/59
--- NOTE | 2021-02-06 07:55 | PDOC ---
Exam Note: Tristan Note: This note is a late entry for 02/04/2021 covers elements not covered in my initial note. Subjective: The patient was reviewed in the morning of 02/04/2021 for a treatment team meeting with Tabitha Lee, Tory Becerra and Anastasia (social sciences professor), Mariel, activity therapy and Ish BUTLER, discussed and reviewed the chart. The patient slept 7 hours previous night. Appetite is 50%. Patients Miky attended the treatment team meeting. We had lengthy discussion about her diagnoses, circumstances prompting admission including the patient had eloped from the home and was found in the shook nearby even though that was within the property boundaries. She was scratched up according to Tabitha Lee and social service staff and police used helicopters to track her down. She had had repeated falls off the staircase at home as well. UA has reflex to culture. She continues to retain urine and straight catheter is being utilized post bladder scan. She is yelling and wandering at times. had many concerns because he is ultimately wanting her to come back home. He can take care of her but some of the situation described above makes it risky and more structured placement is being sought. Review of Systems: No CV, , pulmonary, eye, ENT system symptoms on review. Mental Status Exam: The patient is oriented to herself and situation. Insight and judgment, recent and remote memory, attention and concentration, fund of knowledge is poor consistent with her diagnoses. Laboratory Data: Reviewed. Impression: Major neurocognitive disorder Alzheimer vascular with delusion, depression, and behavioral disturbance. Anxiety disorder unspecified. Impulse control disorder unspecified. Plan: Continue current psychotropics from initial note. Treat the UTI and urinary retention per Dr. Romeo/Dr. Bolanos. Adjust further as clinically indicated. Assessment: Vital Signs/I&O: Vital Signs Date Time Temp Pulse Resp B/P (MAP) Pulse Ox O2 Delivery O2 Flow Rate FiO2 02/06/21 06:23 98.4 73 18 93/59 (70) 98 02/03/21 06:24 Room Air I & O 02/05/21 02/05/21 02/06/21 15:00 23:00 07:00 Intake Total 720 ml 580 ml Balance 720 ml 580 ml Current Medications: Meds: Current Medications Medications (Trade) Dose Ordered Sig/Rufus Route PRN Reason Start Time Stop Time Status Last Admin Dose Admin Divalproex Sodium (Depakote Er) 250 mg BID PO 01/26/21 21:00 01/26/21 19:08 DC Donepezil HCl (Aricept) 10 mg DAILY PO 01/27/21 09:00 01/29/21 18:45 DC 01/29/21 08:42 Acetaminophen/ Hydrocodone Bitart (Lortab 10/325) 1 tab PRN BID PRN PO MODERATE TO SEVERE PAIN 01/26/21 16:15 02/02/21 23:26 Lorazepam (Ativan) 0.5 mg PRN TID PRN PO ANXIETY 01/26/21 16:15 01/26/21 18:01 DC 01/26/21 17:50 Memantine (Namenda) 10 mg DAILY PO 01/27/21 09:00 01/29/21 18:45 DC 01/29/21 08:41 Phenytoin Sodium (Dilantin) 100 mg QHS PO 01/26/21 21:00 01/31/21 23:00 DC 01/31/21 21:06 Quetiapine Fumarate (SEROquel) 25 mg BID PO 01/26/21 21:00 01/29/21 18:45 DC 01/29/21 08:41 Acetaminophen (Tylenol) 650 mg PRN Q6HRS PRN PO MILD PAIN / TEMP > 100.3'F 01/26/21 16:30 01/26/21 19:58 Multi-Ingredient Ointment (Analgesic [place]) 1 david PRN QID PRN TP MUSCLE PAIN 01/26/21 16:30 Al Hydroxide/Mg Hydroxide (Mylanta Plus Xs) 15 ml PRN AFTMEALHC PRN PO DYSPEPSIA 01/26/21 16:30 Magnesium Hydroxide (Milk Of Magnesia) 2,400 mg PRN QHS PRN PO CONSTIPATION 01/26/21 16:30 Olanzapine (ZyPREXA ZYDIS) 1.25 mg PRN Q2HR PRN PO PSYCHOSIS 01/26/21 18:00 01/28/21 23:35 DC 01/28/21 22:02 Divalproex Sodium (Depakote Sprinkles) 250 mg BID PO 01/26/21 21:00 02/05/21 20:28 Olanzapine (ZyPREXA ZYDIS) 2.5 mg PRN Q2HR PRN PO PSYCHOSIS 01/28/21 23:45 02/05/21 20:29 Trazodone HCl (Desyrel) 50 mg PRN QHS PRN PO INSOMNIA, MAY REPEAT X1 01/28/21 23:45 02/05/21 20:29 Quetiapine Fumarate (SEROquel) 25 mg 0900,1300,1700 PO 01/29/21 19:00 01/30/21 19:36 DC 01/30/21 17:25 Sertraline HCl (Zoloft) 25 mg DAILY PO 01/30/21 09:00 02/01/21 21:00 DC 02/01/21 08:35 Vitamin D (Vitamin D3) 50,000 unit WEEKLY PO 01/30/21 14:15 01/30/21 17:25 Quetiapine Fumarate (SEROquel) 37.5 mg 0900,1300,1700 PO 01/31/21 09:00 02/02/21 16:33 DC 02/02/21 12:41 Sertraline HCl (Zoloft) 50 mg DAILY PO 02/02/21 09:00 02/05/21 08:25 Tamsulosin HCl (Flomax) 0.4 mg QHS PO 01/31/21 21:00 02/05/21 20:29 Quetiapine Fumarate (SEROquel) 50 mg 0900,1200 PO 02/03/21 09:00 02/05/21 18:41 DC 02/05/21 12:49 Quetiapine Fumarate (SEROquel) 25 mg QHS PO 02/02/21 21:00 02/05/21 20:29 Quetiapine Fumarate (SEROquel) 25 mg DAILY@1700 PO 02/03/21 18:00 02/05/21 18:41 DC 02/05/21 17:09 Ascorbic Acid (Vitamin C) 1,000 mg DAILY PO 02/05/21 09:00 02/05/21 12:49 Quetiapine Fumarate (SEROquel) 50 mg 0900,1300,1700 PO 02/06/21 09:00 Current Medications Medications (Trade) Dose Ordered Sig/Rufus Route PRN Reason Start Time Stop Time Status Last Admin Dose Admin Ascorbic Acid (Vitamin C) 1,000 mg DAILY PO 02/05/21 09:00 02/05/21 12:49 I have reviewed the current psychotropics carefully including drug interactions. Risk benefit ratio favors no change other than as noted in my dictated progress note. Diagnosis: Problems: (1) Major neurocognitive disorder (2) Impulse control disorder, unspecified (3) Anxiety disorder, unspecified (4) Dementia, vascular, with depression (5) Dementia, vascular, with delusions (6) Dementia in Alzheimer's disease with depression (7) Dementia in Alzheimer's disease with delusions (8) Dementia of the Alzheimer's type with early onset with behavioral disturbance JOSE MIGUEL MCGOWAN MD February 06, 2021 07:54
[2021-02-06] MEDS: SERTRALINE 50 MG TABLET. PO SCH (08:29)
[2021-02-06] MEDS: QUEtiapine 50 MG TABLET. PO SCH ×3 (08:29→17:36)
[2021-02-06] MEDS: ASCORBIC ACID 1,000 MG TABLET PO SCH (08:29)
[2021-02-06] MEDS: CHOLECALCIFEROL (VITAMIN D3) 50,000 UNIT CAPSULE PO SCH (08:29)
[2021-02-06] MEDS: DIVALPROEX 125 MG CAP.SPRINK PO SCH ×2 (08:30→20:48)
--- NOTE | 2021-02-06 15:18 | NUR ---
Nursing note: Pt has been wandering around the unit for most of the shift. She was resistive with her meds this morning, spitting out the bite of pudding with crushed meds saying "That's gross!" Meds were then mixed in chocolate ensure and pt was compliant in drinking that. Pt is currently sleeping in the day room. Will continue to monitor.
[2021-02-06 16:12] VITALS: BP 122/71
[2021-02-06] MEDS: TAMSULOSIN 0.4 MG CAP.ER.24H. PO SCH (20:48)
[2021-02-06] MEDS: QUEtiapine 25 MG TABLET. PO SCH (20:48)
--- NOTE | 2021-02-06 21:34 | NUR ---
Nursing Note Pt drowsy and wandering the unit. Speaks in a word salad. Confused difficult to redirect. Takes po meds, easily in pudding. Was incontinent today seems to be voiding. Now is up wandering and getting agitated. Will give Traz and zyprexa.
[2021-02-06] MEDS: traZODone 50 MG TABLET. PO PRN (21:42)
--- NOTE | 2021-02-06 21:57 | PDOC ---
Exam Note: Tristan Note: Please also refer to the separate dictated note~for this date of service dictated separately.~Patient seen individually. Discussed the patient with Nursing staff reviewed the chart.~Reviewed interim history and current functioning. Reviewed vital signs,~Labs/ Radiology~and current medications noted below. Continue current treatment with the changes noted in the dictated addendum note Assessment: Vital Signs/I&O: Vital Signs Date Time Temp Pulse Resp B/P (MAP) Pulse Ox O2 Delivery O2 Flow Rate FiO2 02/06/21 16:12 97.5 85 17 122/71 (88) 99 Room Air I & O 02/05/21 02/05/21 02/06/21 15:00 23:00 07:00 Intake Total 720 ml 580 ml Balance 720 ml 580 ml Current Medications: Meds: Current Medications Medications (Trade) Dose Ordered Sig/Rufus Route PRN Reason Start Time Stop Time Status Last Admin Dose Admin Divalproex Sodium (Depakote Er) 250 mg BID PO 01/26/21 21:00 01/26/21 19:08 DC Donepezil HCl (Aricept) 10 mg DAILY PO 01/27/21 09:00 01/29/21 18:45 DC 01/29/21 08:42 Acetaminophen/ Hydrocodone Bitart (Lortab 10/325) 1 tab PRN BID PRN PO MODERATE TO SEVERE PAIN 01/26/21 16:15 02/02/21 23:26 Lorazepam (Ativan) 0.5 mg PRN TID PRN PO ANXIETY 01/26/21 16:15 01/26/21 18:01 DC 01/26/21 17:50 Memantine (Namenda) 10 mg DAILY PO 01/27/21 09:00 01/29/21 18:45 DC 01/29/21 08:41 Phenytoin Sodium (Dilantin) 100 mg QHS PO 01/26/21 21:00 01/31/21 23:00 DC 01/31/21 21:06 Quetiapine Fumarate (SEROquel) 25 mg BID PO 01/26/21 21:00 01/29/21 18:45 DC 01/29/21 08:41 Acetaminophen (Tylenol) 650 mg PRN Q6HRS PRN PO MILD PAIN / TEMP > 100.3'F 01/26/21 16:30 01/26/21 19:58 Multi-Ingredient Ointment (Analgesic [place]) 1 david PRN QID PRN TP MUSCLE PAIN 01/26/21 16:30 Al Hydroxide/Mg Hydroxide (Mylanta Plus Xs) 15 ml PRN AFTMEALHC PRN PO DYSPEPSIA 01/26/21 16:30 Magnesium Hydroxide (Milk Of Magnesia) 2,400 mg PRN QHS PRN PO CONSTIPATION 01/26/21 16:30 Olanzapine (ZyPREXA ZYDIS) 1.25 mg PRN Q2HR PRN PO PSYCHOSIS 01/26/21 18:00 01/28/21 23:35 DC 01/28/21 22:02 Divalproex Sodium (Depakote Sprinkles) 250 mg BID PO 01/26/21 21:00 02/06/21 20:48 Olanzapine (ZyPREXA ZYDIS) 2.5 mg PRN Q2HR PRN PO PSYCHOSIS 01/28/21 23:45 02/06/21 21:42 Trazodone HCl (Desyrel) 50 mg PRN QHS PRN PO INSOMNIA, MAY REPEAT X1 01/28/21 23:45 02/06/21 21:42 Quetiapine Fumarate (SEROquel) 25 mg 0900,1300,1700 PO 01/29/21 19:00 01/30/21 19:36 DC 01/30/21 17:25 Sertraline HCl (Zoloft) 25 mg DAILY PO 01/30/21 09:00 02/01/21 21:00 DC 02/01/21 08:35 Vitamin D (Vitamin D3) 50,000 unit WEEKLY PO 01/30/21 14:15 02/06/21 08:29 Quetiapine Fumarate (SEROquel) 37.5 mg 0900,1300,1700 PO 01/31/21 09:00 02/02/21 16:33 DC 02/02/21 12:41 Sertraline HCl (Zoloft) 50 mg DAILY PO 02/02/21 09:00 02/06/21 08:29 Tamsulosin HCl (Flomax) 0.4 mg QHS PO 01/31/21 21:00 02/06/21 20:48 Quetiapine Fumarate (SEROquel) 50 mg 0900,1200 PO 02/03/21 09:00 02/05/21 18:41 DC 02/05/21 12:49 Quetiapine Fumarate (SEROquel) 25 mg QHS PO 02/02/21 21:00 02/06/21 20:48 Quetiapine Fumarate (SEROquel) 25 mg DAILY@1700 PO 02/03/21 18:00 02/05/21 18:41 DC 02/05/21 17:09 Ascorbic Acid (Vitamin C) 1,000 mg DAILY PO 02/05/21 09:00 02/06/21 08:29 Quetiapine Fumarate (SEROquel) 50 mg 0900,1300,1700 PO 02/06/21 09:00 02/06/21 17:36 Current Medications Medications (Trade) Dose Ordered Sig/Rufus Route PRN Reason Start Time Stop Time Status Last Admin Dose Admin Quetiapine Fumarate (SEROquel) 50 mg 0900,1300,1700 PO 02/06/21 09:00 02/06/21 17:36 I have reviewed the current psychotropics carefully including drug interactions. Risk benefit ratio favors no change other than as noted in my dictated progress note. Diagnosis: Problems: (1) Major neurocognitive disorder (2) Impulse control disorder, unspecified (3) Anxiety disorder, unspecified (4) Dementia, vascular, with depression (5) Dementia, vascular, with delusions (6) Dementia in Alzheimer's disease with depression (7) Dementia in Alzheimer's disease with delusions (8) Dementia of the Alzheimer's type with early onset with behavioral disturbance JOSE MIGUEL MCGOWAN MD February 06, 2021 21:56
[2021-02-07 06:44] VITALS: BP 111/67
--- NOTE | 2021-02-07 07:10 | PDOC ---
Exam Note: Tristan Note: This note is a late entry for 02/05/2021 covers elements not covered in my initial note. Subjective: The patient was seen individually in the evening of 02/05/2021 with Eagle BUTLER, discussed and reviewed the chart. The patient slept 5 hours previous night. She remains confused, wandering, intrusive, yelling at times, labile, resistive to medications. Review of Systems: No CV, , pulmonary, eye, ENT system symptoms on review. Reliability poor. She is eating pudding in the evening for snacks but unable to tell me what it was, oblivious of this. Mental Status Exam: The patient is oriented to herself and situation. Insight and judgment, recent and remote memory, attention and concentration, fund of knowledge is poor consistent with her diagnoses. Laboratory Data: Reviewed. Impression: Major neurocognitive disorder Alzheimer vascular with delusion, depression, and behavioral disturbance. Anxiety disorder unspecified. Impulse control disorder unspecified. Plan: Continue current psychotropics from initial note. Increase 5 p.m. Seroquel to 50 mg. Maintain rest of the psychotropics unchanged. We may need to adjust Zoloft in due course. Assessment: Vital Signs/I&O: Vital Signs Date Time Temp Pulse Resp B/P (MAP) Pulse Ox O2 Delivery O2 Flow Rate FiO2 02/07/21 06:44 97.4 76 20 111/67 (82) 94 Room Air I & O 02/06/21 02/06/21 02/07/21 15:00 23:00 07:00 Intake Total 720 ml 480 ml 240 ml Balance 720 ml 480 ml 240 ml Current Medications: Meds: Current Medications Medications (Trade) Dose Ordered Sig/Rufus Route PRN Reason Start Time Stop Time Status Last Admin Dose Admin Divalproex Sodium (Depakote Er) 250 mg BID PO 01/26/21 21:00 01/26/21 19:08 DC Donepezil HCl (Aricept) 10 mg DAILY PO 01/27/21 09:00 01/29/21 18:45 DC 01/29/21 08:42 Acetaminophen/ Hydrocodone Bitart (Lortab 10/325) 1 tab PRN BID PRN PO MODERATE TO SEVERE PAIN 01/26/21 16:15 02/02/21 23:26 Lorazepam (Ativan) 0.5 mg PRN TID PRN PO ANXIETY 01/26/21 16:15 01/26/21 18:01 DC 01/26/21 17:50 Memantine (Namenda) 10 mg DAILY PO 01/27/21 09:00 01/29/21 18:45 DC 01/29/21 08:41 Phenytoin Sodium (Dilantin) 100 mg QHS PO 01/26/21 21:00 01/31/21 23:00 DC 01/31/21 21:06 Quetiapine Fumarate (SEROquel) 25 mg BID PO 01/26/21 21:00 01/29/21 18:45 DC 01/29/21 08:41 Acetaminophen (Tylenol) 650 mg PRN Q6HRS PRN PO MILD PAIN / TEMP > 100.3'F 01/26/21 16:30 01/26/21 19:58 Multi-Ingredient Ointment (Analgesic [place]) 1 david PRN QID PRN TP MUSCLE PAIN 01/26/21 16:30 Al Hydroxide/Mg Hydroxide (Mylanta Plus Xs) 15 ml PRN AFTMEALHC PRN PO DYSPEPSIA 01/26/21 16:30 Magnesium Hydroxide (Milk Of Magnesia) 2,400 mg PRN QHS PRN PO CONSTIPATION 01/26/21 16:30 Olanzapine (ZyPREXA ZYDIS) 1.25 mg PRN Q2HR PRN PO PSYCHOSIS 01/26/21 18:00 01/28/21 23:35 DC 01/28/21 22:02 Divalproex Sodium (Depakote Sprinkles) 250 mg BID PO 01/26/21 21:00 02/06/21 20:48 Olanzapine (ZyPREXA ZYDIS) 2.5 mg PRN Q2HR PRN PO PSYCHOSIS 01/28/21 23:45 02/06/21 21:42 Trazodone HCl (Desyrel) 50 mg PRN QHS PRN PO INSOMNIA, MAY REPEAT X1 01/28/21 23:45 02/06/21 21:42 Quetiapine Fumarate (SEROquel) 25 mg 0900,1300,1700 PO 01/29/21 19:00 01/30/21 19:36 DC 01/30/21 17:25 Sertraline HCl (Zoloft) 25 mg DAILY PO 01/30/21 09:00 02/01/21 21:00 DC 02/01/21 08:35 Vitamin D (Vitamin D3) 50,000 unit WEEKLY PO 01/30/21 14:15 02/06/21 08:29 Quetiapine Fumarate (SEROquel) 37.5 mg 0900,1300,1700 PO 01/31/21 09:00 02/02/21 16:33 DC 02/02/21 12:41 Sertraline HCl (Zoloft) 50 mg DAILY PO 02/02/21 09:00 02/06/21 08:29 Tamsulosin HCl (Flomax) 0.4 mg QHS PO 01/31/21 21:00 02/06/21 20:48 Quetiapine Fumarate (SEROquel) 50 mg 0900,1200 PO 02/03/21 09:00 02/05/21 18:41 DC 02/05/21 12:49 Quetiapine Fumarate (SEROquel) 25 mg QHS PO 02/02/21 21:00 02/06/21 20:48 Quetiapine Fumarate (SEROquel) 25 mg DAILY@1700 PO 02/03/21 18:00 02/05/21 18:41 DC 02/05/21 17:09 Ascorbic Acid (Vitamin C) 1,000 mg DAILY PO 02/05/21 09:00 02/06/21 08:29 Quetiapine Fumarate (SEROquel) 50 mg 0900,1300,1700 PO 02/06/21 09:00 02/06/21 17:36 Current Medications Medications (Trade) Dose Ordered Sig/Rufus Route PRN Reason Start Time Stop Time Status Last Admin Dose Admin Quetiapine Fumarate (SEROquel) 50 mg 0900,1300,1700 PO 02/06/21 09:00 02/06/21 17:36 I have reviewed the current psychotropics carefully including drug interactions. Risk benefit ratio favors no change other than as noted in my dictated progress note. Diagnosis: Problems: (1) Major neurocognitive disorder (2) Impulse control disorder, unspecified (3) Anxiety disorder, unspecified (4) Dementia, vascular, with depression (5) Dementia, vascular, with delusions (6) Dementia in Alzheimer's disease with depression (7) Dementia in Alzheimer's disease with delusions (8) Dementia of the Alzheimer's type with early onset with behavioral disturbance JUAN M,MAN M MD February 07, 2021 07:10
[2021-02-07] MEDS: DIVALPROEX 125 MG CAP.SPRINK PO SCH ×2 (07:44→20:31)
[2021-02-07] MEDS: QUEtiapine 50 MG TABLET. PO SCH ×3 (07:44→17:23)
[2021-02-07] MEDS: SERTRALINE 50 MG TABLET. PO SCH (07:44)
[2021-02-07] MEDS: ASCORBIC ACID 1,000 MG TABLET PO SCH (07:44)
--- NOTE | 2021-02-07 07:55 | PDOC ---
Exam Note: Tristan Note: This note is a late entry for 02/06/2021 covers elements not covered in my initial note. Subjective: The patient was seen individually in the evening of 02/06/2021 with Agueda BUTLER, discussed and reviewed the chart. The patient slept 6-3/4 hours previous night. She has been intrusive, wandering, compliant with medications. She spit out her meds earlier in pudding but took it with chocolate shake later. I met with her in the dayroom. Review of Systems: No CV, , pulmonary, eye, ENT system symptoms on review. Reliability poor. She is eating pudding in the evening for snacks but unable to tell me what it was, oblivious of this. Mental Status Exam: The patient is oriented to herself and situation. Insight and judgment, recent and remote memory, attention and concentration, fund of knowledge is poor consistent with her diagnoses. Laboratory Data: Reviewed. Impression: Major neurocognitive disorder Alzheimer vascular with delusion, depression, and behavioral disturbance. Anxiety disorder unspecified. Impulse control disorder unspecified. Plan: Continue current psychotropics from initial note. Assessment: Vital Signs/I&O: Vital Signs Date Time Temp Pulse Resp B/P (MAP) Pulse Ox O2 Delivery O2 Flow Rate FiO2 02/07/21 06:44 97.4 76 20 111/67 (82) 94 Room Air I & O 02/06/21 02/06/21 02/07/21 15:00 23:00 07:00 Intake Total 720 ml 480 ml 240 ml Balance 720 ml 480 ml 240 ml Current Medications: Meds: Current Medications Medications (Trade) Dose Ordered Sig/Rufus Route PRN Reason Start Time Stop Time Status Last Admin Dose Admin Divalproex Sodium (Depakote Er) 250 mg BID PO 01/26/21 21:00 01/26/21 19:08 DC Donepezil HCl (Aricept) 10 mg DAILY PO 01/27/21 09:00 01/29/21 18:45 DC 01/29/21 08:42 Acetaminophen/ Hydrocodone Bitart (Lortab 10/325) 1 tab PRN BID PRN PO MODERATE TO SEVERE PAIN 01/26/21 16:15 02/02/21 23:26 Lorazepam (Ativan) 0.5 mg PRN TID PRN PO ANXIETY 01/26/21 16:15 01/26/21 18:01 DC 01/26/21 17:50 Memantine (Namenda) 10 mg DAILY PO 01/27/21 09:00 01/29/21 18:45 DC 01/29/21 08:41 Phenytoin Sodium (Dilantin) 100 mg QHS PO 01/26/21 21:00 01/31/21 23:00 DC 01/31/21 21:06 Quetiapine Fumarate (SEROquel) 25 mg BID PO 01/26/21 21:00 01/29/21 18:45 DC 01/29/21 08:41 Acetaminophen (Tylenol) 650 mg PRN Q6HRS PRN PO MILD PAIN / TEMP > 100.3'F 01/26/21 16:30 01/26/21 19:58 Multi-Ingredient Ointment (Analgesic [place]) 1 david PRN QID PRN TP MUSCLE PAIN 01/26/21 16:30 Al Hydroxide/Mg Hydroxide (Mylanta Plus Xs) 15 ml PRN AFTMEALHC PRN PO DYSPEPSIA 01/26/21 16:30 Magnesium Hydroxide (Milk Of Magnesia) 2,400 mg PRN QHS PRN PO CONSTIPATION 01/26/21 16:30 Olanzapine (ZyPREXA ZYDIS) 1.25 mg PRN Q2HR PRN PO PSYCHOSIS 01/26/21 18:00 01/28/21 23:35 DC 01/28/21 22:02 Divalproex Sodium (Depakote Sprinkles) 250 mg BID PO 01/26/21 21:00 02/07/21 07:44 Olanzapine (ZyPREXA ZYDIS) 2.5 mg PRN Q2HR PRN PO PSYCHOSIS 01/28/21 23:45 02/06/21 21:42 Trazodone HCl (Desyrel) 50 mg PRN QHS PRN PO INSOMNIA, MAY REPEAT X1 01/28/21 23:45 02/06/21 21:42 Quetiapine Fumarate (SEROquel) 25 mg 0900,1300,1700 PO 01/29/21 19:00 01/30/21 19:36 DC 01/30/21 17:25 Sertraline HCl (Zoloft) 25 mg DAILY PO 01/30/21 09:00 02/01/21 21:00 DC 02/01/21 08:35 Vitamin D (Vitamin D3) 50,000 unit WEEKLY PO 01/30/21 14:15 02/06/21 08:29 Quetiapine Fumarate (SEROquel) 37.5 mg 0900,1300,1700 PO 01/31/21 09:00 02/02/21 16:33 DC 02/02/21 12:41 Sertraline HCl (Zoloft) 50 mg DAILY PO 02/02/21 09:00 02/07/21 07:44 Tamsulosin HCl (Flomax) 0.4 mg QHS PO 01/31/21 21:00 02/06/21 20:48 Quetiapine Fumarate (SEROquel) 50 mg 0900,1200 PO 02/03/21 09:00 02/05/21 18:41 DC 02/05/21 12:49 Quetiapine Fumarate (SEROquel) 25 mg QHS PO 02/02/21 21:00 02/06/21 20:48 Quetiapine Fumarate (SEROquel) 25 mg DAILY@1700 PO 02/03/21 18:00 02/05/21 18:41 DC 02/05/21 17:09 Ascorbic Acid (Vitamin C) 1,000 mg DAILY PO 02/05/21 09:00 02/07/21 07:44 Quetiapine Fumarate (SEROquel) 50 mg 0900,1300,1700 PO 02/06/21 09:00 02/07/21 07:44 Current Medications Medications (Trade) Dose Ordered Sig/Rufus Route PRN Reason Start Time Stop Time Status Last Admin Dose Admin Quetiapine Fumarate (SEROquel) 50 mg 0900,1300,1700 PO 02/06/21 09:00 02/07/21 07:44 I have reviewed the current psychotropics carefully including drug interactions. Risk benefit ratio favors no change other than as noted in my dictated progress note. Diagnosis: Problems: (1) Major neurocognitive disorder (2) Impulse control disorder, unspecified (3) Anxiety disorder, unspecified (4) Dementia, vascular, with depression (5) Dementia, vascular, with delusions (6) Dementia in Alzheimer's disease with depression (7) Dementia in Alzheimer's disease with delusions (8) Dementia of the Alzheimer's type with early onset with behavioral disturbance JOSE MIGUEL MCGOWAN MD February 07, 2021 07:55
[2021-02-07] MEDS: HYDROcodone/APAP 10/325 1 TAB TABLET PO PRN (13:34)
[2021-02-07 15:16] LABS: BACTERIA,URINE MANY /HPF (0-FEW); BILIRUBIN,URINE NEG (NEG); CLARITY,URINE CLOUDY; COLOR,URINE YELLOW; GLUCOSE,URINE NEG (NEG); NITRITE,URINE POS (NEG); SQUAMOUS EPITHELIAL CELL,UR FEW /LPF; UROBILINOGEN,URINE 0.2 mg/dL (0.2 mg/dL); WBC,URINE >40 /HPF (0-4)
[2021-02-07 15:53] VITALS: BP 105/70
--- NOTE | 2021-02-07 15:54 | NUR ---
DEEPA has had several at length discussions with Miky this week, including today. Miky has not proceeded in researching memory care facilities at this time. He states that he just "can't wrap his mind around it." Miky spoke of taking Jillian home at time of d/c. DEEPA expressed concerns about Jillian returning home based on her history of falling down the stairs and eloping from the home. Explained to Miky that while he can choose to take Jillian home DEEPA does not think it is a safe plan and would file a safety concern with adult protective services. DEEPA will continue to encourage placement at time of discharge.
--- NOTE | 2021-02-07 18:30 | NUR ---
Patient has been labile, agitated, repeatedly calling out, and intrusive with other patients at times. She would push wheelchair-bound patients against their will and spends most of her time wandering in the cantor and door checking. Patient is resistive with cares, repeatedly calling out and not cooperating. Will continue to monitor and report to oncoming shift.
[2021-02-07] MEDS: TAMSULOSIN 0.4 MG CAP.ER.24H. PO SCH (20:31)
[2021-02-07] MEDS: QUEtiapine 25 MG TABLET. PO SCH (20:31)
[2021-02-07] MEDS: traZODone 50 MG TABLET. PO PRN (20:31)
--- NOTE | 2021-02-07 23:16 | NUR ---
Pt wandering unit this evening. Pt disorganized, speaks in word salad and is combative with ADLs. Compliant with crushed medications.
[2021-02-08] MEDS: traZODone 50 MG TABLET. PO PRN (02:06)
[2021-02-08 06:02] VITALS: BP 98/61
--- NOTE | 2021-02-08 08:03 | PDOC ---
Exam Note: Tristan Note: This note is a late entry for 02/07/2021 covers elements not covered in my initial note. Subjective: The patient was seen individually in the evening of 02/07/2021 with Eladia BUTLER, discussed and reviewed the chart. The patient slept 7-1/4 hours previous night. UA is pending. She has been somewhat delusional, wandering on the unit. She was lying in the bed of the male patient when I was making rounds oblivious of where she is. Review of Systems: No CV, , pulmonary, eye, ENT system symptoms on review. Reliability poor. Mental Status Exam: The patient is oriented to herself. Insight and judgment, recent and remote memory, attention and concentration, fund of knowledge is poor consistent with her diagnoses. Laboratory Data: Reviewed. Impression: Major neurocognitive disorder Alzheimer vascular with delusion, depression, and behavioral disturbance. Anxiety disorder unspecified. Impulse control disorder unspecified. Plan: Continue current psychotropics from initial note. Assessment: Vital Signs/I&O: Vital Signs Date Time Temp Pulse Resp B/P (MAP) Pulse Ox O2 Delivery O2 Flow Rate FiO2 02/08/21 06:02 97.7 68 20 98/61 (73) 95 02/07/21 15:53 Room Air I & O 02/07/21 02/07/21 02/08/21 15:00 23:00 07:00 Intake Total 720 ml 560 ml Balance 720 ml 560 ml Labs: Laboratory Tests Test 02/07/21 14:45 Urine Collection Type Clean catch Urine Color Yellow Urine Clarity Cloudy Urine pH 6.0 Urine Specific [place] 1.025 Urine Protein 30 mg/dl (NEG-TRACE) Urine Glucose (UA) Neg mg/dL (NEG) Urine Ketones (Stick) Trace mg/dL (NEG) Urine Blood Mod (NEG) Urine Nitrite Pos (NEG) Urine Bilirubin Neg (NEG) Urine Urobilinogen Dipstick 0.2 mg/dL (0.2 mg/dL) Urine Leukocyte Esterase Large (NEG) Urine RBC 3-5 /HPF (0-2) Urine WBC >40 /HPF (0-4) Urine Squamous Epithelial Cells Few /LPF Urine Bacteria Many /HPF (0-FEW) Current Medications: Meds: Laboratory Tests Test 02/07/21 14:45 Urine Collection Type Clean catch Urine Color Yellow Urine Clarity Cloudy Urine pH 6.0 Urine Specific [place] 1.025 Urine Protein 30 mg/dl Urine Glucose (UA) Neg mg/dL Urine Ketones (Stick) Trace mg/dL Urine Blood Mod Urine Nitrite Pos Urine Bilirubin Neg Urine Urobilinogen Dipstick 0.2 mg/dL Urine Leukocyte Esterase Large Urine RBC 3-5 /HPF Urine WBC >40 /HPF Urine Squamous Epithelial Cells Few /LPF Urine Bacteria Many /HPF Current Medications Medications (Trade) Dose Ordered Sig/Rufus Route PRN Reason Start Time Stop Time Status Last Admin Dose Admin Divalproex Sodium (Depakote Er) 250 mg BID PO 01/26/21 21:00 01/26/21 19:08 DC Donepezil HCl (Aricept) 10 mg DAILY PO 01/27/21 09:00 01/29/21 18:45 DC 01/29/21 08:42 Acetaminophen/ Hydrocodone Bitart (Lortab 10/325) 1 tab PRN BID PRN PO MODERATE TO SEVERE PAIN 01/26/21 16:15 02/07/21 13:34 Lorazepam (Ativan) 0.5 mg PRN TID PRN PO ANXIETY 01/26/21 16:15 01/26/21 18:01 DC 01/26/21 17:50 Memantine (Namenda) 10 mg DAILY PO 01/27/21 09:00 01/29/21 18:45 DC 01/29/21 08:41 Phenytoin Sodium (Dilantin) 100 mg QHS PO 01/26/21 21:00 01/31/21 23:00 DC 01/31/21 21:06 Quetiapine Fumarate (SEROquel) 25 mg BID PO 01/26/21 21:00 01/29/21 18:45 DC 01/29/21 08:41 Acetaminophen (Tylenol) 650 mg PRN Q6HRS PRN PO MILD PAIN / TEMP > 100.3'F 01/26/21 16:30 01/26/21 19:58 Multi-Ingredient Ointment (Analgesic [place]) 1 david PRN QID PRN TP MUSCLE PAIN 01/26/21 16:30 Al Hydroxide/Mg Hydroxide (Mylanta Plus Xs) 15 ml PRN AFTMEALHC PRN PO DYSPEPSIA 01/26/21 16:30 Magnesium Hydroxide (Milk Of Magnesia) 2,400 mg PRN QHS PRN PO CONSTIPATION 01/26/21 16:30 Olanzapine (ZyPREXA ZYDIS) 1.25 mg PRN Q2HR PRN PO PSYCHOSIS 01/26/21 18:00 01/28/21 23:35 DC 01/28/21 22:02 Divalproex Sodium (Depakote Sprinkles) 250 mg BID PO 01/26/21 21:00 02/07/21 20:31 Olanzapine (ZyPREXA ZYDIS) 2.5 mg PRN Q2HR PRN PO PSYCHOSIS 01/28/21 23:45 02/08/21 02:06 Trazodone HCl (Desyrel) 50 mg PRN QHS PRN PO INSOMNIA, MAY REPEAT X1 01/28/21 23:45 02/08/21 02:06 Quetiapine Fumarate (SEROquel) 25 mg 0900,1300,1700 PO 01/29/21 19:00 01/30/21 19:36 DC 01/30/21 17:25 Sertraline HCl (Zoloft) 25 mg DAILY PO 01/30/21 09:00 02/01/21 21:00 DC 02/01/21 08:35 Vitamin D (Vitamin D3) 50,000 unit WEEKLY PO 01/30/21 14:15 02/06/21 08:29 Quetiapine Fumarate (SEROquel) 37.5 mg 0900,1300,1700 PO 01/31/21 09:00 02/02/21 16:33 DC 02/02/21 12:41 Sertraline HCl (Zoloft) 50 mg DAILY PO 02/02/21 09:00 02/07/21 07:44 Tamsulosin HCl (Flomax) 0.4 mg QHS PO 01/31/21 21:00 02/07/21 20:31 Quetiapine Fumarate (SEROquel) 50 mg 0900,1200 PO 02/03/21 09:00 02/05/21 18:41 DC 02/05/21 12:49 Quetiapine Fumarate (SEROquel) 25 mg QHS PO 02/02/21 21:00 02/07/21 20:31 Quetiapine Fumarate (SEROquel) 25 mg DAILY@1700 PO 02/03/21 18:00 02/05/21 18:41 DC 02/05/21 17:09 Ascorbic Acid (Vitamin C) 1,000 mg DAILY PO 02/05/21 09:00 02/07/21 07:44 Quetiapine Fumarate (SEROquel) 50 mg 0900,1300,1700 PO 02/06/21 09:00 02/07/21 17:23 I have reviewed the current psychotropics carefully including drug interactions. Risk benefit ratio favors no change other than as noted in my dictated progress note. Diagnosis: Problems: (1) Major neurocognitive disorder (2) Impulse control disorder, unspecified (3) Anxiety disorder, unspecified (4) Dementia, vascular, with depression (5) Dementia, vascular, with delusions (6) Dementia in Alzheimer's disease with depression (7) Dementia in Alzheimer's disease with delusions (8) Dementia of the Alzheimer's type with early onset with behavioral disturbance JOSE MIGUEL MCGOWAN MD February 08, 2021 08:03
[2021-02-08] MEDS: QUEtiapine 50 MG TABLET. PO SCH ×3 (08:16→17:05)
[2021-02-08] MEDS: DIVALPROEX 125 MG CAP.SPRINK PO SCH ×2 (08:16→21:00)
[2021-02-08] MEDS: SERTRALINE 50 MG TABLET. PO SCH (08:16)
[2021-02-08] MEDS: ASCORBIC ACID 1,000 MG TABLET PO SCH ×2 (08:16→08:27)
--- NOTE | 2021-02-08 15:26 | NUR ---
Observed Jillian wandering about the unit, entering others rooms, picking up items such as de león, and storing them in the front of her pants. She had removed one of her socks. She is easily agitated by noise levels and will shout out when others are being loud. She also pushes peers in their wheelchairs with no safety awareness. Jillian was agitated and difficult to re-direct. SW and tech led her by the hands away from peers wheelchair. Spouse has scheduled visits for this evening and this weekend.
[2021-02-08 15:57] VITALS: BP 115/66
--- NOTE | 2021-02-08 18:16 | NUR ---
Patient has been labile, occasionally agitated, and repeatedly calling out at times. She occasionally pushes wheelchair-bound patients against their will and spends most of her time wandering in the cantor and door checking. Will continue to monitor and report to oncoming shift.
[2021-02-08] MEDS: QUEtiapine 25 MG TABLET. PO SCH (21:00)
[2021-02-08] MEDS: TAMSULOSIN 0.4 MG CAP.ER.24H. PO SCH (21:00)
--- NOTE | 2021-02-08 21:55 | PDOC ---
Exam Note: Tristan Note: Please also refer to the separate dictated note~for this date of service dictated separately.~Patient seen individually. Discussed the patient with Nursing staff reviewed the chart.~Reviewed interim history and current functioning. Reviewed vital signs,~Labs/ Radiology~and current medications noted below. Continue current treatment with the changes noted in the dictated addendum note Assessment: Vital Signs/I&O: Vital Signs Date Time Temp Pulse Resp B/P (MAP) Pulse Ox O2 Delivery O2 Flow Rate FiO2 02/08/21 15:57 97.4 95 18 115/66 (82) 94 02/07/21 15:53 Room Air I & O 02/07/21 02/07/21 02/08/21 15:00 23:00 07:00 Intake Total 720 ml 560 ml Balance 720 ml 560 ml Current Medications: Meds: Current Medications Medications (Trade) Dose Ordered Sig/Rufus Route PRN Reason Start Time Stop Time Status Last Admin Dose Admin Divalproex Sodium (Depakote Er) 250 mg BID PO 01/26/21 21:00 01/26/21 19:08 DC Donepezil HCl (Aricept) 10 mg DAILY PO 01/27/21 09:00 01/29/21 18:45 DC 01/29/21 08:42 Acetaminophen/ Hydrocodone Bitart (Lortab 10/325) 1 tab PRN BID PRN PO MODERATE TO SEVERE PAIN 01/26/21 16:15 02/07/21 13:34 Lorazepam (Ativan) 0.5 mg PRN TID PRN PO ANXIETY 01/26/21 16:15 01/26/21 18:01 DC 01/26/21 17:50 Memantine (Namenda) 10 mg DAILY PO 01/27/21 09:00 01/29/21 18:45 DC 01/29/21 08:41 Phenytoin Sodium (Dilantin) 100 mg QHS PO 01/26/21 21:00 01/31/21 23:00 DC 01/31/21 21:06 Quetiapine Fumarate (SEROquel) 25 mg BID PO 01/26/21 21:00 01/29/21 18:45 DC 01/29/21 08:41 Acetaminophen (Tylenol) 650 mg PRN Q6HRS PRN PO MILD PAIN / TEMP > 100.3'F 01/26/21 16:30 01/26/21 19:58 Multi-Ingredient Ointment (Analgesic [place]) 1 david PRN QID PRN TP MUSCLE PAIN 01/26/21 16:30 Al Hydroxide/Mg Hydroxide (Mylanta Plus Xs) 15 ml PRN AFTMEALHC PRN PO DYSPEPSIA 01/26/21 16:30 Magnesium Hydroxide (Milk Of Magnesia) 2,400 mg PRN QHS PRN PO CONSTIPATION 01/26/21 16:30 Olanzapine (ZyPREXA ZYDIS) 1.25 mg PRN Q2HR PRN PO PSYCHOSIS 01/26/21 18:00 01/28/21 23:35 DC 01/28/21 22:02 Divalproex Sodium (Depakote Sprinkles) 250 mg BID PO 01/26/21 21:00 02/08/21 21:00 Olanzapine (ZyPREXA ZYDIS) 2.5 mg PRN Q2HR PRN PO PSYCHOSIS 01/28/21 23:45 02/08/21 21:00 Trazodone HCl (Desyrel) 50 mg PRN QHS PRN PO INSOMNIA, MAY REPEAT X1 01/28/21 23:45 02/08/21 02:06 Quetiapine Fumarate (SEROquel) 25 mg 0900,1300,1700 PO 01/29/21 19:00 01/30/21 19:36 DC 01/30/21 17:25 Sertraline HCl (Zoloft) 25 mg DAILY PO 01/30/21 09:00 02/01/21 21:00 DC 02/01/21 08:35 Vitamin D (Vitamin D3) 50,000 unit WEEKLY PO 01/30/21 14:15 02/06/21 08:29 Quetiapine Fumarate (SEROquel) 37.5 mg 0900,1300,1700 PO 01/31/21 09:00 02/02/21 16:33 DC 02/02/21 12:41 Sertraline HCl (Zoloft) 50 mg DAILY PO 02/02/21 09:00 02/08/21 08:16 Tamsulosin HCl (Flomax) 0.4 mg QHS PO 01/31/21 21:00 02/08/21 21:00 Quetiapine Fumarate (SEROquel) 50 mg 0900,1200 PO 02/03/21 09:00 02/05/21 18:41 DC 02/05/21 12:49 Quetiapine Fumarate (SEROquel) 25 mg QHS PO 02/02/21 21:00 02/08/21 21:00 Quetiapine Fumarate (SEROquel) 25 mg DAILY@1700 PO 02/03/21 18:00 02/05/21 18:41 DC 02/05/21 17:09 Ascorbic Acid (Vitamin C) 1,000 mg DAILY PO 02/05/21 09:00 02/07/21 07:44 Quetiapine Fumarate (SEROquel) 50 mg 0900,1300,1700 PO 02/06/21 09:00 02/08/21 17:05 I have reviewed the current psychotropics carefully including drug interactions. Risk benefit ratio favors no change other than as noted in my dictated progress note. Diagnosis: Problems: (1) Major neurocognitive disorder (2) Impulse control disorder, unspecified (3) Anxiety disorder, unspecified (4) Dementia, vascular, with depression (5) Dementia, vascular, with delusions (6) Dementia in Alzheimer's disease with depression (7) Dementia in Alzheimer's disease with delusions (8) Dementia of the Alzheimer's type with early onset with behavioral dis turbance JOSE MIGUEL MCGOWAN MD February 08, 2021 21:55
[2021-02-09 06:06] VITALS: BP 119/74
[2021-02-09] MEDS: ASCORBIC ACID 1,000 MG TABLET PO SCH (07:50)
[2021-02-09] MEDS: DIVALPROEX 125 MG CAP.SPRINK PO SCH ×2 (09:28→19:55)
[2021-02-09] MEDS: SERTRALINE 50 MG TABLET. PO SCH (09:28)
[2021-02-09] MEDS: QUEtiapine 50 MG TABLET. PO SCH ×3 (09:28→17:39)
--- NOTE | 2021-02-09 10:46 | NUR ---
Patient is wandering the unit. Patient willing to take medication crushed but was resistive to getting her armband scanned.
[2021-02-09 16:07] VITALS: BP 127/82
[2021-02-09] MEDS: TAMSULOSIN 0.4 MG CAP.ER.24H. PO SCH (19:55)
[2021-02-09] MEDS: QUEtiapine 25 MG TABLET. PO SCH (19:55)
[2021-02-09] MEDS: traZODone 50 MG TABLET. PO PRN (19:56)
--- NOTE | 2021-02-09 23:24 | NUR ---
Pt restless and wandering unit this evening. Combative with redirection. Resistive to crushed medications but compliant on third attempt. Pt had visitor this evening and was yelling and highly anxious after visit. Pt noncompliant with shower, screaming the entire time.
[2021-02-10 06:16] VITALS: BP 110/59
[2021-02-10 06:40] LABS: BILIRUBIN,URINE NEG (NEG); CLARITY,URINE CLOUDY; COLOR,URINE YELLOW; GLUCOSE,URINE NEG (NEG); NITRITE,URINE NEG (NEG); UROBILINOGEN,URINE 0.2 mg/dL (0.2 mg/dL)
[2021-02-10 06:43] LABS: WBC,URINE TNTC /HPF (0-4)
[2021-02-10 06:44] LABS: BACTERIA,URINE MOD /HPF (0-FEW)
[2021-02-10] MEDS: ASCORBIC ACID 1,000 MG TABLET PO SCH (07:20)
[2021-02-10] MEDS: SERTRALINE 50 MG TABLET. PO SCH (07:32)
[2021-02-10] MEDS: QUEtiapine 50 MG TABLET. PO SCH ×3 (07:32→17:04)
[2021-02-10] MEDS: DIVALPROEX 125 MG CAP.SPRINK PO SCH ×2 (07:32→20:43)
[2021-02-10 07:53] LABS: BASO % 1 % (0-3); EOS # 0.1 x10^3/uL (0.0-0.7); EOS % 1 % (0-3); HEMATOCRIT 41.5 % (36.0-47.0); LYMPH % 19 % (24-48); MEAN CORPUSCULAR HEMOGLOBIN 31 pg (25-35); MEAN CORPUSCULAR HGB CONC 34 g/dL (31-37); MEAN CORPUSCULAR VOLUME 92 fL (79-100); MONO # 0.6 x10^3/uL (0.0-1.1); MONO % 12 % (0-9); NEUT # 3.5 x10^3uL (1.8-7.7); NEUT % 67 % (31-73); PLATELET COUNT 209 x10^3/uL (140-400); RED BLOOD COUNT 4.53 x10^6/uL (3.50-5.40); RED CELL DISTRIBUTION WIDTH 14.3 % (11.5-14.5); WHITE BLOOD COUNT 5.2 x10^3/uL (4.0-11.0)
[2021-02-10 08:10] LABS: ALBUMIN 3.3 g/dL (3.4-5.0); ALBUMIN/GLOBULIN RATIO 0.9 (1.0-1.7); CREATININE 0.7 mg/dL (0.6-1.0); POTASSIUM 4.1 mmol/L (3.5-5.1); TOTAL BILIRUBIN 0.3 mg/dL (0.2-1.0); TOTAL PROTEIN 6.8 g/dL (6.4-8.2)
--- NOTE | 2021-02-10 09:55 | NUR ---
Patient is wandering the unit. Patient willing to take medication crushed. patient yelling and attacking peers. PRN medications given to help calm her down.
[2021-02-10 16:18] VITALS: BP 150/84
[2021-02-10] MEDS: QUEtiapine 25 MG TABLET. PO SCH (20:43)
[2021-02-10] MEDS: TAMSULOSIN 0.4 MG CAP.ER.24H. PO SCH (20:43)
[2021-02-10] MEDS: traZODone 50 MG TABLET. PO PRN ×2 (20:43→22:36)
--- NOTE | 2021-02-10 22:30 | NUR ---
Pt sleeping in the dayroom at start of shift. Pt had to be woken up and taken to the group room for scheduled visit with . During visit, pt was highly disorganized, restless and irritable. Pt became very agitated after left, requiring 2 staff members to assist pt to her room. Pt compliant with crushed medications. Pt restless in bed, attempting to get up repeatedly. Repeat Trazodone and Zyprexa administered at 2240.
--- NOTE | 2021-02-11 02:56 | PN ---
DATE: 02/10/2021 SUBJECTIVE: The patient was seen today, met with the staff, chart reviewed. The patient's behavior fluctuates. She is still combative at times, verbally abusive, emotional lability, tend to wander. Also, elopement risk. OBSERVATION: VITAL SIGNS: Temperature 97.5, blood pressure 110/59, pulse 77, respirations 18, O2 sat 96%. Slept about 8 hours last night. The patient's appetite is fair. CURRENT MEDICATIONS: Include: 1. Seroquel 50 mg t.i.d. 2. Seroquel 25 mg at night. 3. Zoloft 50 mg daily. 4. Trazodone 50 mg at night p.r.n. for sleep. 5. Depakote 250 mg b.i.d. The patient is not having any side effects. ASSESSMENT: Major neurocognitive disorder, most likely Alzheimer's, vascular, with depression and behavior problems. Also, generalized anxiety disorder. PLAN: Plan is to continue with the current treatment plan. Length of stay is 7-10 days. Plans for discharge depends on the patient's progress whether she will return home or need to go to Memory Care placement. ROLA DR: Murphy TID: [id number] [facility]ley
[2021-02-11 06:35] VITALS: BP 132/75
[2021-02-11] MEDS: SERTRALINE 50 MG TABLET. PO SCH (08:03)
[2021-02-11] MEDS: QUEtiapine 50 MG TABLET. PO SCH ×3 (08:04→17:31)
[2021-02-11] MEDS: DIVALPROEX 125 MG CAP.SPRINK PO SCH ×2 (08:04→21:11)
[2021-02-11] MEDS: ASCORBIC ACID 1,000 MG TABLET PO SCH (08:04)
--- NOTE | 2021-02-11 12:35 | TX PLAN ---
Interdisciplinary Tx Plan Admission Information Jan 26, 2021 at 16:12 Legal Status (on Admission): Voluntary, DPOA DPOA/Guardian Name: Miky Denise-spouse Contact Other Contact Name: Miky Denise Other Contact Verified Code Status: Full Code Allergies: Coded Allergies: No Known Drug Allergies (Unverified , 01/26/21) Estimated Length of Stay: 14 Diagnoses Primary Diagnosis: Dementia with behavioral disturbance Reasons for Admission: Aggressive, Agitated, Sig. Change Sleep, Anxiety/Panic, Hallucinations, Combative, Confusion/Disoriented, Poor impulse control Problem in Patient's Words: Jillian is having progressive memory loss and most recently has become combative with spouse prompting her admission to [facility]. Additional Admission Comments: Per intake record, combative, aggressive, not sleeping, verbaly abusive, mood lability, wandering, hallucinating. Problems Active Problems: Combative, aggressive insomnia verbally abusive, yelling out resisits care labile mood wandering and door checking hallucinating Inactive Problems: medication compliant Pt Strengths/Limitations Ability for [place]: Poor Cognitive Functioning/Ability: Poor Communication Skills/Ability: Poor Financial Resources: Fair Insight/Judgement: Poor Intellectual Ability: Fair Physical Health: Fair Social Skills: Poor Stability in Family: Fair Verbal Skills: Poor Discharge Criteria Discharge Criteria: Adequate arrangements @DC, Improved behavior, Improved mood/thought Preliminary Discharge Plan Preliminary DC Plan: Memory Care, Home Special Precautions Special Precautions: Agitation/Assault Fall Risk: High Initial D/C Plan Jillian spouse has expressed desire fore Jillian to return home. For safety reasons, it has been recommended that Jillian be placed in memory care. Identified Discharge Needs: Jillian has fallen down the stairs in her home several times. She has also gotten [place] in [place] and the police assisted to locate her with a helicpoter search. SW discussed placement in memory care as a safer option then Miky taking Jillian home. SW suggested that Miky tour [facility]to [facility]. Identified Problems/Hx/Goals Objectives/Short-Term Goals Short Term Goals: Control abnormal behavior, Dec. Aggression, Dec. Anxiety/Panic, Dec. Hallucination/Delus, Medication Stabilization, Monitor Med Effects Short Term Goals in Patient's: Jillian is unable to establish goals. Per spouse at time of intake, mood and behavior stabilization in order to easier care for Jillian. Interventions/Frequency Staff Interventions/Frequency&: Nursing to provide routine safety checks, medication administration, and adl support. Psychiatrist to see three times weekly. SW to see twice weekly. 1:1 visits from recreational therapy to provide socialization. History Vocational History: Jillian went to work for [employer] at age 20. She worked her way up in the company and traveled for [employer]. She worked at [employer] 43 years before being approved for disbality around 2006 for cognitive changes. Social: Unknown Education: Jillian graduated from high school. Community Follow-up Placement needed, f/u with PCP and out patient psychiatry Community Provider/Family Inpu: Treatment team meeting was held on 01/28/21. SW had left message for spouse/POA with invite to particiapte in team meeting via phone. SW recieved voice message from spouse on 01/29/21 indicating he was not well and was considering going to the [place]. SW has been unable to reach spouse at this time. entry level lab technician of treatment plan was completed on 01/29/21. Treatment Plan Explained Patient/Dock Operator had this treatment plan explained to him/her as indicated by the signature below and has been given the opportunity to ask questions and make suggestions: Date: Patient/Dock Operator Signature: Status Update Update WEEKLY UPDATE/NOTE: Jillian is averaging 75% of meal intakes and six hours of sleep at night. Her behaviors have increased and nursing will discuss with hatchery manager about possible antibiotic for possible UTI. Jillian wanders about the unit, enters others rooms, has periods of agitation and irritability, door checks, screams out, curses, urinates and defecates in public places, and resists cares. She is intrusive with staff and peers. She is unable to participate in groups as her attention span does not allow her to focus or remain seated for long enough to complete a group activity. She requires staff to anticipate her needs and benefits from supervision for safety. Spouse/POA is still having difficulty with the idea of placing Jillian in memory care at the time of discharge. DEEPA will continue to discuss with spouse. ALEXANDRA PAUL 10, 2021 12:35
--- NOTE | 2021-02-11 13:00 | NUR ---
WEEKLY ACTIVITY THERAPY NOTE Date of Admission:01/26/21 Date of AT Assessment:01/29 Precipitating behaviors that initiated intake and admission:combative, aggressive, not sleeping, verbally abusive, labile mood, wandering, hallucinations. Goal aimed: increase relaxation and sensory stimulation Initial Goal: Pt will participate in at least three individual or group Activity Therapy sessions before discharge. Weekly progress towards goal: on track (02/06-douglas chi, things that go together and music) Group participation level: 1 min Weekly highlights: tapping foot to music Thursday morning Behaviors observed: wanders often, hard to redirect, shouting out Plan: no change to goal Beneficial adaptations:
--- NOTE | 2021-02-11 14:09 | NUR ---
Nursing note: Pt in dining room at time of AM med pass and assessment. She was compliant with meds crushed and mixed with a chocolate ensure. Pt is very disorganized and wanders around the unit. Pt is intrusive at times, going into other pt's rooms and pushing the wheelchairs of other pt's and can get irritable with redirection at times. She is currently walking around the unit. Will continue to monitor.
[2021-02-11 16:11] VITALS: BP 136/82
[2021-02-11] MEDS: TAMSULOSIN 0.4 MG CAP.ER.24H. PO SCH (21:11)
[2021-02-11] MEDS: CEFDINIR 300 MG CAPSULE PO SCH (21:11)
[2021-02-11] MEDS: QUEtiapine 25 MG TABLET. PO SCH (21:11)
--- NOTE | 2021-02-11 23:28 | NUR ---
patient was wandering in the hallway and day room. She was compliant with medications taken crushed in a bite of chocolate pudding. Patient was initially sleeping on couch in day room. When nurse woke patient up for bed, patient was very reluctant to enter her room. CORPORATE COORDINATOR walked patient in hallway and then was able to get patient into bed. Patient in disorganized and unable to answer any orientation questions at this time.
[2021-02-12 06:16] VITALS: BP 108/75
[2021-02-12] MEDS: ASCORBIC ACID 1,000 MG TABLET PO SCH (07:50)
[2021-02-12] MEDS: QUEtiapine 50 MG TABLET. PO SCH ×3 (07:51→17:22)
[2021-02-12] MEDS: DIVALPROEX 125 MG CAP.SPRINK PO SCH ×2 (07:51→20:37)
[2021-02-12] MEDS: CEFDINIR 300 MG CAPSULE PO SCH ×2 (07:51→20:37)
[2021-02-12] MEDS: SERTRALINE 50 MG TABLET. PO SCH (07:51)
--- NOTE | 2021-02-12 13:04 | NUR ---
Nursing note: Pt in dining room at time of AM med pass and assessment. She is compliant with meds crushed in chocolate pudding and cooperative with assessment. She has been wandering around the unit and can be irritable with redirection at times. She is currently walking around in the day room. Will continue to monitor.
--- NOTE | 2021-02-12 15:45 | NUR ---
Jillian has been wandering about the unit for the entirety of the day and door checks regularly. She had her Gatorade tucked into the front of her shirt. Jillian stopped for a brief moment when SW attempted to engage her in conversation. Jillian speech was confused and unrelated to questions asked of her. She was calm at time of interaction and without s/s of distress. Left phone message for Miky, spouse/POA, to update and inquire about if he has reached out to any memory care communities. Awaiting return phone call.
[2021-02-12 16:27] VITALS: BP 136/85
[2021-02-12] MEDS: QUEtiapine 25 MG TABLET. PO SCH (20:37)
[2021-02-12] MEDS: TAMSULOSIN 0.4 MG CAP.ER.24H. PO SCH (20:37)
--- NOTE | 2021-02-13 01:32 | PN ---
DATE: 02/12/2021 SUBJECTIVE: The patient was seen today, met with the staff. Chart was reviewed and also covering for Dr. Mays. The patient still has periods of increased aggression, verbally abusive, also being combative with the staff and also tendency to wander and elopement risk. PHYSICAL EXAMINATION: VITAL SIGNS: Temperature 97.0, blood pressure 136/85, pulse 78, respirations 18, O2 sat 96%. GENERAL: The patient is sleeping fairly well. CURRENT MEDICATIONS: Include Seroquel 50 mg t.i.d. and 25 mg at night, Zoloft 50 mg daily, trazodone 50 mg at night p.r.n. for sleep and Depakote 250 mg b.i.d. The patient is not having any side effects. ASSESSMENT: Major neurocognitive disorder most likely Alzheimer, vascular with depression and behavioral disturbances and generalized anxiety disorder. PLAN: To continue with the current treatment plan. LENGTH OF STAY: 7 to [address]: Murphy TID: [id number] [facility]
--- NOTE | 2021-02-13 02:13 | NUR ---
Patient was sitting in a chair in the day room, drowsy and falling asleep. Patient assisted to bed by staff, she was resistive with medications and attempted to slap spoon out of nurses hand. Patient eventually ate the pudding with the medication crushed in it. Patient up once during the night to urinate, went back to sleep after that.
[2021-02-13 06:05] VITALS: BP 125/75
[2021-02-13] MEDS: DIVALPROEX 125 MG CAP.SPRINK PO SCH ×2 (07:56→21:00)
[2021-02-13] MEDS: CEFDINIR 300 MG CAPSULE PO SCH ×2 (07:57→21:00)
[2021-02-13] MEDS: SERTRALINE 50 MG TABLET. PO SCH (07:57)
[2021-02-13] MEDS: QUEtiapine 50 MG TABLET. PO SCH ×3 (07:57→17:28)
[2021-02-13] MEDS: CHOLECALCIFEROL (VITAMIN D3) 50,000 UNIT CAPSULE PO SCH (07:58)
[2021-02-13] MEDS: ASCORBIC ACID 1,000 MG TABLET PO SCH (07:58)
--- NOTE | 2021-02-13 09:40 | NUR ---
Patient has made two attempts to defecate in chairs in the day room and became agitated and combative with attempts to redirect her. Patient escorted to bathroom and toileted by staff. She continues to be agitated; hitting staff, repeatedly hitting on doors, santiago, and windows, door checking, and exit seeking; prn medication provided per eMAR, will continue to monitor.
--- NOTE | 2021-02-13 12:50 | NUR ---
DEEPA received return voice message from Miky, spouse/POPebbles. Miky is having medical tests completed on himself over the next couple of days and requested SW leave detailed update on his voice mail. DEEPA did leave detailed voice mail update this date per Miky's request.
[2021-02-13 16:31] VITALS: BP 128/84
[2021-02-13] MEDS: TAMSULOSIN 0.4 MG CAP.ER.24H. PO SCH (21:00)
[2021-02-13] MEDS: QUEtiapine 25 MG TABLET. PO SCH (21:00)
--- NOTE | 2021-02-13 23:28 | NUR ---
Patient resistive with toileting and attempted to bite and slap staff. Patient slapped spoon of HS medication crushed in pudding out of nurses hand. Patient consumed 1/2 medication prior to that. She is disorganized, intrusive and resistive with cares. Patient speaks in word salad and is oriented to self only.
--- NOTE | 2021-02-14 01:47 | PN ---
DATE: 02/13/2021 SUBJECTIVE: The patient was seen today met with the staff. Chart was reviewed and also covering for Dr. Mays. The patient continues to have increased anxiety, restlessness and behavior problems. She also tendency to wander and an elopement risk. OBSERVATION: VITAL SIGNS: Temperature 97.6, blood pressure 125/75, pulse 73, respirations 16, O2 sat 97%. GENERAL: Slept about 5 hours last night. The patient is not having any physical complaints. CURRENT MEDICATIONS: Include Seroquel 50 mg 3 times a day, Seroquel 25 mg at night, Zoloft 50 mg daily, trazodone 50 mg at night p.r.n. for sleep. Also, olanzapine 2.5 mg q. 2 hours. p.r.n. The patient is also on Depakote sprinkles 250 mg twice a day. The patient is not having any side effects. ASSESSMENT: 1. Major neurocognitive disorder, most likely Alzheimer's, vascular with depression and behavioral disturbances. 2. Generalized anxiety disorder. PLAN: To continue with treatment. LENGTH OF STAY: Seven days. MAGI DR: Murphy TID: [id number]
[2021-02-14] MEDS: MAGNESIUM HYDROXIDE 2,400 MG/30 ML ORAL.SUSP. PO PRN (03:22)
--- NOTE | 2021-02-14 03:32 | NUR ---
Patient awake, out of bed and restless, holding stomach but refusing to sit on toilet, it appears that she is needing to have a bowel movement. Patient urinated prior to bed. Documented bowel movement 02/13 that was "hard". PRN MOM given for constipation/hard stool.
[2021-02-14 05:31] VITALS: BP 134/60
[2021-02-14] MEDS: ASCORBIC ACID 1,000 MG TABLET PO SCH (07:54)
[2021-02-14] MEDS: DIVALPROEX 125 MG CAP.SPRINK PO SCH ×2 (07:54→20:11)
[2021-02-14] MEDS: CEFDINIR 300 MG CAPSULE PO SCH ×2 (07:54→20:10)
[2021-02-14] MEDS: QUEtiapine 50 MG TABLET. PO SCH ×3 (07:55→17:23)
[2021-02-14] MEDS: SERTRALINE 50 MG TABLET. PO SCH (07:55)
[2021-02-14] MEDS: LACTOBACILLUS RHAMNOSUS GG 1 CAPSULE. PO SCH ×2 (07:56→20:11)
[2021-02-14] MEDS: HYDROcodone/APAP 10/325 1 TAB TABLET PO PRN (10:23)
--- NOTE | 2021-02-14 15:58 | NUR ---
DEEPA received voice message from Miky, spouse, indicating desire to schedule visits with Jillian at 1999 thru Thursday. DEEPA called Miky back and left message requesting he consider coming earlier in the day as staff had to wake Jillian up at the time of his last visit at 1999 and she was agitated when Miky left. DEEPA received voice message back from Miky indicating that he had other responsibilities throughout the day and was unable to visit any earlier.
[2021-02-14 16:17] VITALS: BP 97/56
--- NOTE | 2021-02-14 18:30 | NUR ---
Patient disorganized, labile, and wandering for most of this shift; she spent most of her time in the hallway door-checking. She would be agitated for a few minutes at a time, calling out angrily; then calm down and wander down the cantor some more. Will continue to monitor and report to oncoming shift.
[2021-02-14] MEDS: TAMSULOSIN 0.4 MG CAP.ER.24H. PO SCH (20:11)
[2021-02-14] MEDS: QUEtiapine 25 MG TABLET. PO SCH (20:11)
--- NOTE | 2021-02-15 04:50 | NUR ---
Nursing Note Pt started the shift asleep. awakens to voice and took meds in pudding. Easily excited and agitated, starts to wander after meds. Assisted pt back to bed where she slept until about 415, awoke with a start was initially sweet and smiling, then became belligerent and angry. Zyprexa given in a bite of pudding. Now sitting in the cantor in a chair quiet.
--- NOTE | 2021-02-15 04:57 | PN ---
DATE: 02/14/2021 The patient was seen today, met with the staff, chart was reviewed, and also covering for Dr. Mays. SUBJECTIVE: Staff reports increased anxiety, restlessness and behavior problems, also a tendency to wander. OBSERVATION: VITAL SIGNS: Temperature 98.6, blood pressure 134/60, pulse 77, respirations 22, O2 sat 94%. GENERAL: Slept about 4 hours last night. The patient's appetite is fair. CURRENT MEDICATIONS: Seroquel 50 mg 3 times a day, Seroquel 25 mg at night, Zoloft 50 mg daily, trazodone 50 mg at night p.r.n. for sleep. The patient is also on Depakote sprinkles 250 mg twice a day. The patient is not having any side effects to medications. ASSESSMENT: 1. Major neurocognitive disorder, most likely Alzheimer's, vascular with depression and behavioral disturbances. 2. Generalized anxiety disorder. PLAN: To continue with treatment. LENGTH OF STAY: Seven days. DAV DR: Murphy TID: [id number]
[2021-02-15 05:43] VITALS: BP 120/82
[2021-02-15] MEDS: ASCORBIC ACID 1,000 MG TABLET PO SCH (08:22)
[2021-02-15] MEDS: QUEtiapine 50 MG TABLET. PO SCH ×2 (08:22→12:11)
[2021-02-15] MEDS: SERTRALINE 50 MG TABLET. PO SCH (08:22)
[2021-02-15] MEDS: LACTOBACILLUS RHAMNOSUS GG 1 CAPSULE. PO SCH ×2 (08:22→20:51)
[2021-02-15] MEDS: DIVALPROEX 125 MG CAP.SPRINK PO SCH ×2 (08:22→20:51)
[2021-02-15] MEDS: CEFDINIR 300 MG CAPSULE PO SCH ×2 (08:22→20:52)
--- NOTE | 2021-02-15 12:46 | NUR ---
SYLVIA NOTE; AM MED RESISTIVE I APPROACHED PT IN HER ROOM AT 0830 TO GIVE HER MEDS. SHE SAID SHE HAS TO GO EAT BREAKFAST BEFORE SHE CAN TAKE THEM. AFTER BREAKFAST, I GAVE THEM TO HER WHOLE REQUESTED. SHE TOOK THEM AND DRANK WATER. SHE THEN LEANED OVER AND SPIT THEM OUT ON THE FLOOR. I REDREW THEM OUT OF THE OMNICELL AND BY THE TIME I GOT BACK TO HER, SHE SAID SHE CAN'T TAKE THEM ON AN EMPTY STOMACH. I TRIED TO GIVE HER A FRUIT BAR, BUT SHE REFUSED. AFTER LUNCH, I GAVE HER THE MEDS AGAIN WHOLE, AND THIS TIME, SHE TOOK THEM, DRANK WATER THEN I WATHCHED HER EAT SEVERAL BITES TO MAKE SURE THEY WERE SWALLOWED Addendum: 02/15/21 at 1251 by JAVAD BUNCH RN DISREGARD THIS NOTE IT WAS WRITTEN ON THE WRONG PATIENT
--- NOTE | 2021-02-15 12:51 | NUR ---
NSG NOTE; WRONG PATIENT: NOTE AT 1246 ON AM MED RESISTANCE WRITTEN ON THE WRONG PATIENT SO DISREGARD THAT NOTE
--- NOTE | 2021-02-15 12:54 | NUR ---
NSG NOTE; RESISTIVE WITH CARES STAFF GAVE PATIENT A SHOWER THIS AM IN WHICH SHE YELLED THROUGHOUT, ATTEMPTED TO GET AWAY, AND KICKED AT STAFF. PATIENT IS USUALLY CONTENT UNLESS STAFF ATTEMPTS TO PROVIDE CARES WHICH SHE THEN RESISTS
[2021-02-15 15:56] VITALS: BP 97/57
[2021-02-15] MEDS: TAMSULOSIN 0.4 MG CAP.ER.24H. PO SCH (20:51)
[2021-02-15] MEDS: QUEtiapine 100 MG TABLET. PO SCH (20:54)
--- NOTE | 2021-02-16 01:42 | PN ---
DATE: 02/15/2021 DATE OF SERVICE: 02/15/2021 SUBJECTIVE: The patient was seen today and met with the staff. Chart reviewed and also covering for Dr. Mays. Staff reports increased confusion, tend to wander. The patient is also difficult to redirect and also resistant to care at times. PHYSICAL EXAMINATION: VITAL SIGNS: Temperature 97.0, blood pressure 120/82, pulse 80, respirations 18, O2 sat 96%. Slept about 7 hours last night. MEDICATIONS: The patient's medications reviewed. The patient's medications were changed to Depakote 500 mg at night, Seroquel was changed to 50 mg in the morning and 100 mg at night. Continue on Zoloft 50 mg daily and also continue on Zyprexa Zydis and trazodone p.r.n. The patient is not having any side effects. LABORATORY DATA: The patient's lab reviewed. ASSESSMENT: 1. Major neurocognitive disorder, most likely Alzheimer's, vascular with the depression and behavioral disturbances. 2. Generalized anxiety disorder. PLAN: To continue with the treatment. LENGTH OF STAY: [address]: Murphy TID: [id number]
--- NOTE | 2021-02-16 01:54 | NUR ---
Nursing Note Pt is in a very advanced dementia state, she talks at length with no real meaning but cuss words are interspersed in her speech pattern. When trying to do anything with her I am met with response like this "Fucker stupid, dumbass, milk, get get get, moo, you moo, out!" Pt has no conscious thought of what she is speaking, just random words come from her mouth as she tries to push staff away. Visited with her this PM, seemed to have no effect on her. was rather abrupt with staff informed them he would be saying his 30 minutes. She was not phased by his presence. Took meds crushed in pudding.
[2021-02-16 05:52] VITALS: BP 126/71
[2021-02-16] MEDS: SERTRALINE 50 MG TABLET. PO SCH (07:38)
[2021-02-16] MEDS: CEFDINIR 300 MG CAPSULE PO SCH ×2 (07:38→19:18)
[2021-02-16] MEDS: LACTOBACILLUS RHAMNOSUS GG 1 CAPSULE. PO SCH ×2 (07:38→19:18)
[2021-02-16] MEDS: QUEtiapine 50 MG TABLET. PO SCH (07:40)
[2021-02-16] MEDS: ASCORBIC ACID 1,000 MG TABLET PO SCH (07:40)
[2021-02-16 07:44] LABS: BASO % 1 % (0-3); EOS # 0.1 x10^3/uL (0.0-0.7); EOS % 1 % (0-3); HEMATOCRIT 41.9 % (36.0-47.0); HEMOGLOBIN 13.7 g/dL (12.0-15.5); LYMPH # 1.1 x10^3/uL (1.0-4.8); LYMPH % 16 % (24-48); MEAN CORPUSCULAR HEMOGLOBIN 31 pg (25-35); MEAN CORPUSCULAR HGB CONC 33 g/dL (31-37); MEAN CORPUSCULAR VOLUME 94 fL (79-100); MONO # 0.7 x10^3/uL (0.0-1.1); MONO % 11 % (0-9); NEUT # 4.8 x10^3uL (1.8-7.7); NEUT % 71 % (31-73); PLATELET COUNT 154 x10^3/uL (140-400); RED BLOOD COUNT 4.48 x10^6/uL (3.50-5.40); RED CELL DISTRIBUTION WIDTH 14.2 % (11.5-14.5); WHITE BLOOD COUNT 6.8 x10^3/uL (4.0-11.0)
[2021-02-16 08:01] LABS: ALBUMIN 3.3 g/dL (3.4-5.0); ALBUMIN/GLOBULIN RATIO 0.9 (1.0-1.7); CALCIUM 9.7 mg/dL (8.5-10.1); CREATININE 0.8 mg/dL (0.6-1.0); GFR 70.3; POTASSIUM 4.4 mmol/L (3.5-5.1); TOTAL BILIRUBIN 0.2 mg/dL (0.2-1.0); TOTAL PROTEIN 6.9 g/dL (6.4-8.2)
--- NOTE | 2021-02-16 08:37 | NUR ---
Nursing Note Pt very agitated with lab draws. Later wanders the unit eating finger food, confused and rambling.
--- NOTE | 2021-02-16 10:18 | NUR ---
Pt placed on rounds list for Dr Bolanos this morning d/t Sodium level 13, Chloride 113, BUN 38, BUN/Creat ratio 48. It is unlikely that pt is a good candidate for IVF d/t continuous state of high agitation. Will refer to Dr Bolnaos for final decision. CNAs instructed to encourage and provide frequent PO fluid intake. Addendum: 02/16/21 at 1226 by HARRIETT PADILLA RN Edit: sodium level 153
[2021-02-16 15:50] VITALS: BP 117/77
[2021-02-16] MEDS: TAMSULOSIN 0.4 MG CAP.ER.24H. PO SCH (19:18)
[2021-02-16] MEDS: DIVALPROEX 125 MG CAP.SPRINK PO SCH (19:18)
[2021-02-16] MEDS: QUEtiapine 100 MG TABLET. PO SCH (19:18)
[2021-02-16] MEDS: traZODone 50 MG TABLET. PO PRN (19:19)
--- NOTE | 2021-02-16 23:49 | PN ---
DATE: 02/16/2021 SUBJECTIVE: The patient was seen today, met with the staff, chart reviewed and also covering for Dr. Mays. Staff reports that she is medication compliant. Still disorganized with her thinking, wandering, also loud at times. Continues to be delusional. PHYSICAL EXAMINATION: VITAL SIGNS: Temperature 98.6, blood pressure 126/71, pulse 75, respirations 20, O2 sat 98%. Slept about 7 hours last night. LABORATORY DATA: The patient's lab reviewed. The patient's sodium was 153, chloride 113. The patient apparently dehydrated. MEDICATIONS: Reviewed. Currently, not having any side effects to the medications. ASSESSMENT: 1. Major neurocognitive disorder, most likely Alzheimer's, vascular with depression, behavioral disturbances. 2. Generalized anxiety disorder. PLAN: To continue with the treatment. LENGTH OF STAY: [address]: Murphy TID: [id number]
--- NOTE | 2021-02-17 01:27 | NUR ---
Nursing Note Pt irritable and confused, wanders the unit, difficult to redirect at times. Will take meds normally in pudding was really resistive this pm. Crushed and put them in vanilla pudding, took them after that.
[2021-02-17 06:05] VITALS: BP 130/74
[2021-02-17] MEDS: QUEtiapine 50 MG TABLET. PO SCH (09:06)
[2021-02-17] MEDS: SERTRALINE 50 MG TABLET. PO SCH (09:06)
[2021-02-17] MEDS: LACTOBACILLUS RHAMNOSUS GG 1 CAPSULE. PO SCH ×2 (09:06→19:33)
[2021-02-17] MEDS: CEFDINIR 300 MG CAPSULE PO SCH ×2 (09:06→19:34)
[2021-02-17] MEDS: ASCORBIC ACID 1,000 MG TABLET PO SCH (09:09)
[2021-02-17 16:02] VITALS: BP 126/76
--- NOTE | 2021-02-17 18:28 | NUR ---
Patient disorganized, labile, wandering, and door checking for most of this shift; she spent most of her time in the hallway. She would be calm for the most part then randomly start calling out angrily for a few minutes; then calm down and wander down the cantor some more. She took short naps seated in the day room or cantor way. Will continue to monitor and report to oncoming shift.
[2021-02-17] MEDS: TAMSULOSIN 0.4 MG CAP.ER.24H. PO SCH (19:33)
[2021-02-17] MEDS: DIVALPROEX 125 MG CAP.SPRINK PO SCH (19:33)
[2021-02-17] MEDS: QUEtiapine 100 MG TABLET. PO SCH (19:35)
--- NOTE | 2021-02-17 23:17 | PN ---
DATE: 02/17/2021 SUBJECTIVE: The patient was seen today, met with the staff. Chart reviewed and also covering for Dr. Mays. Staff reports increased behavior problems, disorganized thinking, wandering loud, delusional and also mood swings, emotional lability, poor eye contact and also trying to catch imaginary objects and looking for things on the floor. Staff also reports slight improvement from yesterday. The patient did not have any falls. OBSERVATION: VITAL SIGNS: The patient's vital signs include temperature 98.4, blood pressure 105/66, pulse 68, respirations 18, O2 sat 96%. GENERAL: Slept about 7:00 last night. MEDICATIONS AND LABS: Patient's medication and lab reviewed. The patient is not having any side effects to medications. ASSESSMENT: 1. Major neurocognitive disorder, most likely Alzheimer's, vascular with the depression and behavioral disturbances. 2. Generalized anxiety disorder. PLAN: To continue with the treatment. LENGTH OF STAY: Seven days. MAGI DR: Murphy TID: [id number]
[2021-02-18 05:59] VITALS: BP 103/59
--- NOTE | 2021-02-18 06:52 | NUR ---
Nursing Note The patient was calm and compliant during interactions with this nurse. The patient was able to take her medication crushed in pudding. The patient was disorganized and unable to participate with her assessment. The patient is currently awake in her bed.
[2021-02-18 07:49] LABS: BASO % 1 % (0-3); EOS % 0 % (0-3); HEMATOCRIT 42.4 % (36.0-47.0); HEMOGLOBIN 13.9 g/dL (12.0-15.5); LYMPH # 1.2 x10^3/uL (1.0-4.8); LYMPH % 15 % (24-48); MEAN CORPUSCULAR HEMOGLOBIN 31 pg (25-35); MEAN CORPUSCULAR HGB CONC 33 g/dL (31-37); MEAN CORPUSCULAR VOLUME 93 fL (79-100); MONO # 1.4 x10^3/uL (0.0-1.1); MONO % 18 % (0-9); NEUT # 5.3 x10^3uL (1.8-7.7); NEUT % 66 % (31-73); PLATELET COUNT 118 x10^3/uL (140-400); RED BLOOD COUNT 4.54 x10^6/uL (3.50-5.40); RED CELL DISTRIBUTION WIDTH 14.2 % (11.5-14.5)
[2021-02-18 08:13] LABS: ALBUMIN 3.1 g/dL (3.4-5.0); ALBUMIN/GLOBULIN RATIO 0.8 (1.0-1.7); ALK PHOS 75 U/L (46-116); ALT (SGPT) 19 U/L (14-59); ANION GAP 5 (6-14); AST (SGOT) 22 U/L (15-37); BLOOD UREA NITROGEN 25 mg/dL (7-20); BUN/CREATININE RATIO 31 (6-20); CALCIUM 9.1 mg/dL (8.5-10.1); CARBON DIOXIDE 33 mmol/L (21-32); CHLORIDE 107 mmol/L (98-107); CREATININE 0.8 mg/dL (0.6-1.0); GFR 70.3; GLUCOSE 92 mg/dL (70-99); POTASSIUM 4.5 mmol/L (3.5-5.1); SODIUM 145 mmol/L (136-145); TOTAL BILIRUBIN 0.3 mg/dL (0.2-1.0); TOTAL PROTEIN 6.9 g/dL (6.4-8.2)
[2021-02-18 08:14] LABS: VAL ACID 96 mcg/mL (50-100)
[2021-02-18] MEDS: QUEtiapine 50 MG TABLET. PO SCH (08:38)
[2021-02-18] MEDS: SERTRALINE 50 MG TABLET. PO SCH (08:38)
[2021-02-18] MEDS: CETIRIZINE HCL 10 MG TABLET PO SCH (08:38)
[2021-02-18] MEDS: CEFDINIR 300 MG CAPSULE PO SCH ×2 (08:38→20:44)
[2021-02-18] MEDS: LACTOBACILLUS RHAMNOSUS GG 1 CAPSULE. PO SCH ×2 (08:38→20:45)
[2021-02-18] MEDS: ASCORBIC ACID 1,000 MG TABLET PO SCH (08:38)
[2021-02-18] MEDS: PSEUDOEPHEDRINE ER 120 MG TABLET.ER. PO SCH (08:39)
--- NOTE | 2021-02-18 13:06 | NUR ---
WEEKLY ACTIVITY THERAPY NOTE Date of Admission:01/26/21 Date of AT Assessment:01/29 Precipitating behaviors that initiated intake and admission:combative, aggressive, not sleeping, verbally abusive, labile mood, wandering, hallucinations. Goal aimed: increase relaxation and sensory stimulation Initial Goal: Pt will participate in at least three individual or group Activity Therapy sessions before discharge. Weekly progress towards goal: on track (02/06-douglas chi and things that go together and music, 02/15- chocolate chip day trivia and cookies) Group participation level: 1 min Weekly highlights: accepted a chocolate chip cookie Thursday afternoon Behaviors observed: wanders often Plan: no change to goal Beneficial adaptations:
--- NOTE | 2021-02-18 13:12 | TX PLAN ---
Interdisciplinary Tx Plan Admission Information Jan 26, 2021 at 16:12 Legal Status (on Admission): Voluntary, DPOA DPOA/Guardian Name: Miky Denise-spouse Contact Other Contact Name: Miky Denise Other Contact Verified Code Status: Full Code Allergies: Coded Allergies: No Known Drug Allergies (Unverified , 01/26/21) Estimated Length of Stay: 14 Diagnoses Primary Diagnosis: Dementia with behavioral disturbance Reasons for Admission: Aggressive, Agitated, Sig. Change Sleep, Anxiety/Panic, Hallucinations, Combative, Confusion/Disoriented, Poor impulse control Problem in Patient's Words: Jillian is having progressive memory loss and most recently has become combative with spouse prompting her admission to [facility]. Additional Admission Comments: Per intake record, combative, aggressive, not sleeping, verbaly abusive, mood lability, wandering, hallucinating. Problems Active Problems: Combative, aggressive insomnia verbally abusive, yelling out resisits care labile mood wandering and door checking hallucinating Inactive Problems: medication compliant Pt Strengths/Limitations Ability for Converse: Poor Cognitive Functioning/Ability: Poor Communication Skills/Ability: Poor Financial Resources: Fair Insight/Judgement: Poor Intellectual Ability: Fair Physical Health: Fair Social Skills: Poor Stability in Family: Fair Verbal Skills: Poor Discharge Criteria Discharge Criteria: Adequate arrangements @DC, Improved behavior, Improved mood/thought Preliminary Discharge Plan Preliminary DC Plan: Memory Care, Home Special Precautions Special Precautions: Agitation/Assault Fall Risk: High Initial D/C Plan Jillian spouse has expressed desire fore Jillian to return home. For safety reasons, it has been recommended that Jillian be placed in memory care. Identified Discharge Needs: Jillian has fallen down the stairs in her home several times. She has also gotten [place] in [place] and the police assisted to locate her with a helicpoter search. SW discussed placement in memory care as a safer option then Miky taking Jillian home. SW suggested that Miky tour [employer] [facility]. Identified Problems/Hx/Goals Objectives/Short-Term Goals Short Term Goals: Control abnormal behavior, Dec. Aggression, Dec. Anxiety/Panic, Dec. Hallucination/Delus, Medication Stabilization, Monitor Med Effects Short Term Goals in Patient's: Jillian is unable to establish goals. Per spouse at time of intake, mood and behavior stabilization in order to easier care for Jillian. Interventions/Frequency Staff Interventions/Frequency&: Nursing to provide routine safety checks, medication administration, and adl support. Psychiatrist to see three times weekly. SW to see twice weekly. 1:1 visits from recreational therapy to provide socialization. History Vocational History: Jillian went to work for [employer] at age 20. She worked her way up in the company and traveled for [employer]. She worked at [employer] 43 years before being approved for disbality around 2006 for cognitive changes. Social: Unknown Education: Jillian graduated from high school. Community Follow-up Placement needed, f/u with PCP and out patient psychiatry Community Provider/Family Inpu: Treatment team meeting was held on 01/28/21. SW had left message for spouse/POA with invite to particiapte in team meeting via phone. SW recieved voice message from spouse on 01/29/21 indicating he was not well and was considering going to the [place] ER. SW has been unable to reach spouse at this time. data entry clerk of treatment plan was completed on 01/29/21. Treatment Plan Explained Patient/Visual Design Lead had this treatment plan explained to him/her as indicated by the signature below and has been given the opportunity to ask questions and make suggestions: Date: Patient/Visual Design Lead Signature: Status Update Update WEEKLY NOTE/UPDATE: Jillian is averaging 75% of meals and 6 hours of sleep at night. She is on a pureed diet and staff will put food into a cup and Jillian will eat the food while she moves around. She continues to spend most of her time wandering and door checking. She continues antibiotic treatment for UTI. She is resistive at times of cares, doesn't understand staff are trying to help her, yells out and becomes belligerent. She can become aggressive at times of cares. She has been medication compliant with meds crushed in food. She was started on sudafed and zyrtec for allergies. SW will update spouse to determine d/c preference and begin coordinating upcoming d/c. ALEXANDRA PAUL February 18, 2021 13:12
[2021-02-18 15:53] VITALS: BP 122/88
--- NOTE | 2021-02-18 16:32 | NUR ---
DEEPA attempted to return call to Miky, spouse. The line was busy several times and then when it rang, DEEPA was unable to leave a message. Will continue to try and reach Miky at later time.
--- NOTE | 2021-02-18 18:16 | NUR ---
nsg note; shift summary braydon has been wandering the halls today with more time spent sitting in the dayroom with others patients. she is confused and does not follow directions well. she takes her meds crushed in ice cream. staff puts her pureed meals in a cup with a spoon so she can feed herself while wandering around the dining during meals. most attempts to provide cares results in her resistance and yelling, otherwise she was generally content today. she was grunting and crying on the toilet having no results and needed to be manually assisted to remove the first large stool ball. after this, she had a large bm.
[2021-02-18] MEDS: QUEtiapine 100 MG TABLET. PO SCH (20:44)
[2021-02-18] MEDS: DIVALPROEX 125 MG CAP.SPRINK PO SCH (20:45)
[2021-02-18] MEDS: TAMSULOSIN 0.4 MG CAP.ER.24H. PO SCH (20:45)
--- NOTE | 2021-02-19 03:10 | PN ---
DATE: 02/18/2021 SUBJECTIVE: The patient was seen today, met with the staff, chart reviewed and also covering for Dr. Mays. Staff reports that she is medication compliant, but still disorganized with thinking, wandering, loud, also delusional and difficult to redirect. OBSERVATION: VITAL SIGNS: Temperature 98.2, blood pressure 103/59, pulse 84, respirations 16, O2 sat 97%. GENERAL: Slept about 7 hours last night. The patient's appetite fair. Staff reports no falls. The patient's medications reviewed, not having any side effects. LABORATORY DATA: The patient's lab reviewed. ASSESSMENT: 1. Major neurocognitive disorder, most likely Alzheimer's, vascular with depression and behavioral disturbances. 2. Generalized anxiety disorder. PLAN: To continue with treatment. LENGTH OF STAY: Seven days. RED DR: Murphy TID: [id number]
--- NOTE | 2021-02-19 03:57 | NUR ---
Nursing Note The patient was located in the hallway for her medication pass and assessment. The patient took her medication crushed in pudding. The patient was alert to self only. The patient was witnessed grimacing when bending over or when any pressure was placed on her abdomen. This nurse preformed a bladder scan on the patient and >350ml of urine was noted. Straight catheterization was preformed and 350ml of urine was removed. The patient was agitated during this procedure. The patient was calm after the procedure and was fast asleep soon after. The patient is currently sleeping in her room.
[2021-02-19 06:07] VITALS: BP 105/70
[2021-02-19] MEDS: CETIRIZINE HCL 10 MG TABLET PO SCH (08:18)
[2021-02-19] MEDS: ASCORBIC ACID 1,000 MG TABLET PO SCH (08:18)
[2021-02-19] MEDS: LACTOBACILLUS RHAMNOSUS GG 1 CAPSULE. PO SCH ×2 (08:18→21:03)
[2021-02-19] MEDS: CEFDINIR 300 MG CAPSULE PO SCH ×2 (08:18→21:03)
[2021-02-19] MEDS: SERTRALINE 50 MG TABLET. PO SCH (08:18)
[2021-02-19] MEDS: PSEUDOEPHEDRINE ER 120 MG TABLET.ER. PO SCH (08:19)
[2021-02-19] MEDS: QUEtiapine 50 MG TABLET. PO SCH (08:19)
--- NOTE | 2021-02-19 13:41 | NUR ---
DEEPA left message for Miky with request for return phone call. Jillian completed her antibiotic for UTI this date and seems some less agitated in general. She still becomes agitated and can be resistive at times of care or with increased stimulation. DEEPA is awaiting return call from Miky to discuss d/c plan/location and follow up care once Jillian leaves [facility].
[2021-02-19 16:00] VITALS: BP 112/70
--- NOTE | 2021-02-19 16:00 | NUR ---
MANAGER PSYCHIATRY reports patient has elevated temperature taken with temporal thermometer. Patient's forehead feels hot, neck and arms feel warm, and fingers are cool. Patient has no complaints or signs/symptoms of discomfort. Will continue to monitor.
--- NOTE | 2021-02-19 17:35 | NUR ---
Patient disorganized, wandering, and door checking for most of this shift; she spent most of her time in the hallway wandering. She was less labile today with fewer outbursts. She took short naps seated in the day room or cantor way. Will continue to monitor and report to oncoming shift.
[2021-02-19] MEDS: DIVALPROEX 125 MG CAP.SPRINK PO SCH (21:03)
[2021-02-19] MEDS: TAMSULOSIN 0.4 MG CAP.ER.24H. PO SCH (21:03)
[2021-02-19] MEDS: QUEtiapine 100 MG TABLET. PO SCH (21:03)
--- NOTE | 2021-02-20 00:24 | NUR ---
Nursing Note The patient was located in the day room for her assessment and medication pass. The patient took her medication crushed in pudding. The patient was compliant with HS cares. The patient was unable to answer assessment questions but responded to her name. The patient was drowsy during interactions with this nurse. The patient was difficult to assess this shift due to resistiveness to assessment of lungs/abdomen/heart. This nurse attempted to auscultate patient while she was sleeping but was only partially successful due to shallow breathing and positioning of patient. The patient is currently sleeping in her room.
[2021-02-20 05:54] VITALS: BP 110/60
[2021-02-20] MEDS: ACETAMINOPHEN 325 MG TABLET PO PRN (05:55)
[2021-02-20] MEDS: CHOLECALCIFEROL (VITAMIN D3) 50,000 UNIT CAPSULE PO SCH (08:07)
[2021-02-20] MEDS: LACTOBACILLUS RHAMNOSUS GG 1 CAPSULE. PO SCH ×2 (08:07→20:50)
[2021-02-20] MEDS: SERTRALINE 50 MG TABLET. PO SCH (08:07)
[2021-02-20] MEDS: CETIRIZINE HCL 10 MG TABLET PO SCH (08:07)
[2021-02-20] MEDS: QUEtiapine 50 MG TABLET. PO SCH (08:07)
[2021-02-20] MEDS: PSEUDOEPHEDRINE ER 120 MG TABLET.ER. PO SCH (09:00)
[2021-02-20] MEDS: ASCORBIC ACID 1,000 MG TABLET PO SCH (09:00)
--- NOTE | 2021-02-20 09:55 | NUR ---
Pt has been more calm this morning than on previous days. Pt has not been as labile. She does remain confused and disorganized; unable to answer assessment questions and will only answer to her name. She is compliant with medications crushed and mixed in yogurt. She does not interact with others much but has remained appropriate on the unit. Per NOC shift report pt had a temp of 100.3 oral and has a slight cough, pt placed on rounds list for Dr Romeo for further assessment. Plan of care continues, will pass to next shift.
[2021-02-20 16:14] VITALS: BP 109/73
[2021-02-20] MEDS ORDERED: POLYVINYL ALCOHOL 1.4% OPHTH SOLUTION 15ML BOTTLE. OU PRN (16:30)
[2021-02-20] MEDS: DIVALPROEX 125 MG CAP.SPRINK PO SCH (20:50)
[2021-02-20] MEDS: QUEtiapine 100 MG TABLET. PO SCH (20:50)
[2021-02-20] MEDS: TAMSULOSIN 0.4 MG CAP.ER.24H. PO SCH (20:50)
--- NOTE | 2021-02-21 00:31 | PN ---
DATE: 02/20/2021 SUBJECTIVE: The patient was seen today, met with the staff, chart reviewed. Staff reports the patient continues to have problems with delusional thinking, being loud, tend to wander and also disorganized with her thinking. OBSERVATION: VITAL SIGNS: Temperature 97.7, blood pressure 157/88, pulse 86, respirations 16, O2 sat 95%. GENERAL: Slept about 6 hours last night. The patient's appetite is fair. MEDICATIONS: Reviewed. LABORATORY DATA: Reviewed. ASSESSMENT: 1. Major neurocognitive disorder, most likely Alzheimer's, vascular with depression and behavioral disturbances. 2. Generalized anxiety disorder. PLAN: To continue with the treatment. LENGTH OF STAY: Seven days. MAGI DR: Murphy TID: [id number]
--- NOTE | 2021-02-21 00:35 | PN ---
DATE: 02/19/2021 SUBJECTIVE: The patient was seen today via telehealth, discussed with the staff and chart reviewed. Staff has no major complaints. She is medication compliant, but continues to have disorganized thinking. Also, delusional at times. OBSERVATION: VITAL SIGNS: Stable. GENERAL: The patient is not having any falls. LABORATORY DATA: The patient's lab reviewed. MEDICATIONS: The patient is not having any major side effects from the medication. ASSESSMENT: 1. Major neurocognitive disorder, most likely Alzheimer's, vascular with depression and behavioral disturbances. 2. Generalized anxiety disorder. PLAN: To continue with the treatment. LENGTH OF STAY: Seven days. RANDY DR: Murphy TID: [id number]
--- NOTE | 2021-02-21 01:32 | NUR ---
Last evening pt walked in the cantor or sat in the day room. Meds were given in pudding with some prompting. Later she was touching a peer ans became aggressive towards staff while being redirected. At HS she was resistive with care but settled when in bed and has been sleeping since.
[2021-02-21 05:44] VITALS: BP 128/78
[2021-02-21] MEDS: QUEtiapine 50 MG TABLET. PO SCH (08:19)
[2021-02-21] MEDS: SERTRALINE 50 MG TABLET. PO SCH (08:19)
[2021-02-21] MEDS: ASCORBIC ACID 1,000 MG TABLET PO SCH ×2 (08:19→09:00)
[2021-02-21] MEDS: LACTOBACILLUS RHAMNOSUS GG 1 CAPSULE. PO SCH ×3 (08:19→20:07)
[2021-02-21] MEDS: CETIRIZINE HCL 10 MG TABLET PO SCH ×2 (08:19→09:00)
[2021-02-21] MEDS: PSEUDOEPHEDRINE ER 120 MG TABLET.ER. PO SCH ×2 (08:20→09:00)
--- NOTE | 2021-02-21 09:17 | NUR ---
Pt is labile and not med compliant this morning. After eating a spoonfull of medications in pudding she held the mouthfull in her mouth and then spit it out onto the dining room table. Further attempts to administer the medications in the pudding is met with more resistance and yelling. She remains delusional and disorganized, A&O to self only. Plan of care continues, will pass to next shift.
[2021-02-21 16:11] VITALS: BP 118/78
[2021-02-21] MEDS: DIVALPROEX 125 MG CAP.SPRINK PO SCH (20:07)
[2021-02-21] MEDS: QUEtiapine 100 MG TABLET. PO SCH (20:07)
[2021-02-21] MEDS: TAMSULOSIN 0.4 MG CAP.ER.24H. PO SCH (20:08)
--- NOTE | 2021-02-21 22:20 | PN ---
DATE: 02/21/2021 SUBJECTIVE: The patient was seen today, met with the staff, chart reviewed. The patient's behavior has improved. The patient is still confused, wandering, also experiencing high level of anxiety. PHYSICAL EXAMINATION: VITAL SIGNS: Temperature 98.0, blood pressure 118/78, pulse 80, respirations 16, O2 sat 98%. GENERAL: The patient's appetite is fair. Sleep improved. CURRENT MEDICATIONS: The patient's medications reviewed, not having any side effects to medications. LABORATORY DATA: The patient's lab reviewed. ASSESSMENT: 1. Major neurocognitive disorder, most likely Alzheimer's, vascular with the depression and behavioral disturbances. 2. Generalized anxiety disorder. PLAN: To continue with the treatment. LENGTH OF STAY: Seven days. BERT DR: Murphy TID: [id number]
--- NOTE | 2021-02-22 00:11 | NUR ---
Nursing Note Pt wanders the unit, less agitated over all, meds in pudding. Then, she was in the shower later yelling but not combative, secondary to misperceiving the care being given. Less over all behaviors and compliance improved.
[2021-02-22 06:08] VITALS: BP 151/79
[2021-02-22] MEDS: PSEUDOEPHEDRINE ER 120 MG TABLET.ER. PO SCH (07:38)
--- NOTE | 2021-02-22 07:44 | NUR ---
Morning dose of Pseudophederine held d/t medication being extended release (cannot crush) and pt inability to take medications whole.
[2021-02-22] MEDS: LACTOBACILLUS RHAMNOSUS GG 1 CAPSULE. PO SCH ×2 (08:13→20:19)
[2021-02-22] MEDS: ASCORBIC ACID 1,000 MG TABLET PO SCH (08:13)
[2021-02-22] MEDS: QUEtiapine 50 MG TABLET. PO SCH (08:13)
[2021-02-22] MEDS: CETIRIZINE HCL 10 MG TABLET PO SCH (08:13)
[2021-02-22] MEDS: SERTRALINE 50 MG TABLET. PO SCH (08:14)
--- NOTE | 2021-02-22 10:05 | NUR ---
Pt remains labile, confused, disorganized, and delusional this shift. She is unable to answer assessment questions and will only answer to her name. She is compliant with medications crushed and mixed in chocolate ensure. She does not interact with others much but has remained appropriate on the unit. Plan of care continues, will pass to next shift.
--- NOTE | 2021-02-22 15:11 | NUR ---
SW received voice message from Miky, spouse/POA, indicating that he plans to have Jillian return home at time of discharge. Left message for Miky this afternoon with request for return phone call in order to coordinate upcoming discharge. Awaiting return call.
[2021-02-22 15:42] VITALS: BP 133/73
[2021-02-22] MEDS: QUEtiapine 100 MG TABLET. PO SCH (20:19)
[2021-02-22] MEDS: TAMSULOSIN 0.4 MG CAP.ER.24H. PO SCH (20:19)
[2021-02-22] MEDS: DIVALPROEX 125 MG CAP.SPRINK PO SCH (20:19)
[2021-02-22] MEDS: MAGNESIUM HYDROXIDE 2,400 MG/30 ML ORAL.SUSP. PO PRN (20:19)
--- NOTE | 2021-02-22 23:52 | PN ---
DATE: 02/22/2021 SUBJECTIVE: The patient was seen today, met with the staff, chart reviewed. The patient's behavior remains the same. Staff reports she is still delusional, disorganized, refusing medications at times. The patient also constantly pacing, intrusive. OBSERVATION: VITAL SIGNS: Temperature 97.4, blood pressure 151/79, pulse 76, respirations 18, O2 sat 98%. GENERAL: Slept about 6 hours last night. The patient's appetite, decreased. CURRENT MEDICATIONS: The patient's medications reviewed not having any side effects. LABORATORY DATA: The patient's lab reviewed. ASSESSMENT: 1. Major neurocognitive disorder, most likely Alzheimer's, vascular with depression and behavioral disturbances. 2. Generalized anxiety disorder. PLAN: To continue with the treatment. LENGTH OF STAY: [address]: Murphy TID: [id number]
--- NOTE | 2021-02-22 23:59 | NUR ---
Patient is ambulating around the unit on arrival, door checking and trying to move chairs in the day room. She is confused, disorganized, word salad. She is resistant to assessments and medications. Meds were given crushed and mixed with a small amount of chocolate ensure, which took several attempts to get her to drink it all. She is extremely resistant to any care provided, yelling nonsense and swatting staff. Patient appears to be sleeping comfortably at present time. Will continue to monitor.
[2021-02-23 06:16] VITALS: BP 128/77
[2021-02-23] MEDS: QUEtiapine 50 MG TABLET. PO SCH (08:30)
[2021-02-23] MEDS: CETIRIZINE HCL 10 MG TABLET PO SCH (08:30)
[2021-02-23] MEDS: LACTOBACILLUS RHAMNOSUS GG 1 CAPSULE. PO SCH ×2 (08:30→20:16)
[2021-02-23] MEDS: SERTRALINE 50 MG TABLET. PO SCH (08:30)
[2021-02-23] MEDS: PSEUDOEPHEDRINE ER 120 MG TABLET.ER. PO SCH (08:30)
[2021-02-23] MEDS: ASCORBIC ACID 1,000 MG TABLET PO SCH (08:30)
--- NOTE | 2021-02-23 10:29 | NUR ---
Patient is resistive to medication. Patient wandering and interacting with her environment. Patient tearful and yelling during shower.
[2021-02-23 16:08] VITALS: BP 107/61
--- NOTE | 2021-02-23 18:17 | NUR ---
Patient fell back and hit her left shoulder on the corner of the wall. Patient called and updated on the fall. Patient's has concerns about patients medication, he wants to know if she can start back on memantine and prolia shot. Dr. obregon was updated on the fall and left shoulder x-ray will be completed.
[2021-02-23] MEDS: DIVALPROEX 125 MG CAP.SPRINK PO SCH (20:16)
[2021-02-23] MEDS: QUEtiapine 100 MG TABLET. PO SCH (20:16)
[2021-02-23] MEDS: TAMSULOSIN 0.4 MG CAP.ER.24H. PO SCH (20:16)
[2021-02-23] MEDS ORDERED: PSEUDOEPHEDRINE ER 120 MG TABLET.ER. PO PRN (22:00)
--- NOTE | 2021-02-23 23:02 | PN ---
DATE: 02/23/2021 SUBJECTIVE: The patient was seen today, met with the staff, chart reviewed, and also covering for Dr. Mays. Staff reports continued behavior problems, disorganized thinking, delusional. Apparently, she has been medication compliant. The patient apparently less anxious and less agitated for the past couple of days. OBSERVATION: VITAL SIGNS: Temperature 97.0, blood pressure 128/77, pulse 72, respirations 18, O2 sat 99%. GENERAL: Slept about hours last night. The patient's appetite is fair. MEDICATIONS: The patient's medications reviewed, not having any side effects to them. LABORATORY DATA: Reviewed. ASSESSMENT: 1. Major neurocognitive disorder, most likely Alzheimer's, vascular with depression and behavioral disturbances. 2. Generalized anxiety disorder. PLAN: To continue with the treatment. LENGTH OF STAY: Seven days. JONNA DR: Murphy TID: [id number]
[2021-02-24 06:00] VITALS: BP 127/65
--- NOTE | 2021-02-24 06:17 | RAD ---
Two-view left shoulder HISTORY: Pain status post fall AP and Y views left shoulder were obtained The January 01, 2021 portable chest x-rays available for comparison FINDINGS: The left humeral head projects anterior inferior and medial to the glenoid. There is a large sulci ex tremity deformity of the humeral head. Sclerotic changes of the proximal left humerus consistent ench ondroma. IMPRESSION: 1. Anterior dislocation left shoulder with a large. Deformity suggesting this is a chronic or repetit ubaldo fracture dislocation. 2. Sclerotic changes of the proximal half of the left humerus suggests enchondroma. The Hill-Sachs de formity is large and therefore this fracture could be a pathologic fracture. Electronically signed by: Carter Jennings III, MD (02/24/2021 6:14 AM) [facility]
[2021-02-24] MEDS: CETIRIZINE HCL 10 MG TABLET PO SCH (08:08)
[2021-02-24] MEDS: SERTRALINE 50 MG TABLET. PO SCH (08:08)
[2021-02-24] MEDS: ASCORBIC ACID 1,000 MG TABLET PO SCH (08:08)
[2021-02-24] MEDS: LACTOBACILLUS RHAMNOSUS GG 1 CAPSULE. PO SCH ×2 (08:08→20:05)
[2021-02-24] MEDS: QUEtiapine 50 MG TABLET. PO SCH (08:08)
--- NOTE | 2021-02-24 09:03 | NUR ---
Patient is resistive to medication. Patient wandering and interacting with her environment.
[2021-02-24 15:27] VITALS: BP 116/76
[2021-02-24 19:21] LABS: CLARITY,URINE CLOUDY; COLOR,URINE YELLOW
[2021-02-24 19:22] LABS: AMORPHOUS SEDIMENT,UR PRESENT /HPF; BACTERIA,URINE MANY /HPF (0-FEW); BILIRUBIN,URINE NEG (NEG); GLUCOSE,URINE NEG (NEG); NITRITE,URINE POS (NEG); SQUAMOUS EPITHELIAL CELL,UR FEW /LPF; UROBILINOGEN,URINE 0.2 mg/dL (0.2 mg/dL); WBC,URINE 20-40 /HPF (0-4)
[2021-02-24] MEDS: DIVALPROEX 125 MG CAP.SPRINK PO SCH (20:05)
[2021-02-24] MEDS: TAMSULOSIN 0.4 MG CAP.ER.24H. PO SCH (20:05)
[2021-02-24] MEDS: QUEtiapine 100 MG TABLET. PO SCH (20:06)
--- NOTE | 2021-02-25 01:04 | PN ---
DATE: 02/24/2021 SUBJECTIVE: The patient was seen today, met with the staff, chart reviewed. Staff reports no major behavior problems except for disorganized thinking, delusional at times. She is much more calmer. The patient is not having any visual hallucinations at this time. OBSERVATION: VITAL SIGNS: Temperature 97.9, blood pressure 127/65, pulse 69, respirations 16. Slept about 8 hours last night. The patient's appetite is fair. MEDICATIONS: Reviewed, not having any side effects. LABORATORY DATA: The patient's lab reviewed. ASSESSMENT: 1. Major neurocognitive disorder, most likely Alzheimer's, vascular with the depression and behavioral disturbances. 2. Generalized anxiety disorder. PLAN: To continue with treatment. LENGTH OF STAY: Seven days. DAV DR: Murphy TID: [id number]
--- NOTE | 2021-02-25 04:41 | NUR ---
Nursing Note Pt wanders the unit confused, takes po meds well in pudding. Cooperative with assessment no agitation. Seems more alert. Easier to redirect.
[2021-02-25 05:37] VITALS: BP 151/74
[2021-02-25 07:16] LABS: BASO % 0 % (0-3); EOS % 1 % (0-3); HEMATOCRIT 38.2 % (36.0-47.0); HEMOGLOBIN 12.9 g/dL (12.0-15.5); LYMPH # 0.8 x10^3/uL (1.0-4.8); LYMPH % 16 % (24-48); MEAN CORPUSCULAR HEMOGLOBIN 30 pg (25-35); MEAN CORPUSCULAR HGB CONC 34 g/dL (31-37); MEAN CORPUSCULAR VOLUME 90 fL (79-100); MONO # 0.6 x10^3/uL (0.0-1.1); MONO % 13 % (0-9); NEUT # 3.4 x10^3uL (1.8-7.7); NEUT % 70 % (31-73); PLATELET COUNT 145 x10^3/uL (140-400); RED BLOOD COUNT 4.26 x10^6/uL (3.50-5.40); RED CELL DISTRIBUTION WIDTH 13.4 % (11.5-14.5); WHITE BLOOD COUNT 4.9 x10^3/uL (4.0-11.0)
[2021-02-25] MEDS: ASCORBIC ACID 1,000 MG TABLET PO SCH (08:40)
[2021-02-25] MEDS: SERTRALINE 50 MG TABLET. PO SCH (08:40)
[2021-02-25] MEDS: CETIRIZINE HCL 10 MG TABLET PO SCH (08:40)
[2021-02-25] MEDS: LACTOBACILLUS RHAMNOSUS GG 1 CAPSULE. PO SCH ×2 (08:40→20:47)
[2021-02-25] MEDS: QUEtiapine 50 MG TABLET. PO SCH (08:40)
--- NOTE | 2021-02-25 10:24 | NUR ---
Pt is labile, confused, disorganized, and delusional this shift. She is unable to answer assessment questions. She is compliant with medications crushed and mixed in chocolate ensure. She does not interact with others much but has remained appropriate on the unit. Plan of care continues, will pass to next shift.
[2021-02-25 13:34] LABS: ALBUMIN 3.2 g/dL (3.4-5.0); ALBUMIN/GLOBULIN RATIO 0.9 (1.0-1.7); CALCIUM 9.2 mg/dL (8.5-10.1); CREATININE 0.8 mg/dL (0.6-1.0); GFR 70.3; POTASSIUM 4.2 mmol/L (3.5-5.1); TOTAL BILIRUBIN 0.2 mg/dL (0.2-1.0); TOTAL PROTEIN 6.7 g/dL (6.4-8.2)
--- NOTE | 2021-02-25 13:35 | NUR ---
WEEKLY ACTIVITY THERAPY NOTE Date of Admission:01/26/21 Date of AT Assessment:01/29 Precipitating behaviors that initiated intake and admission:combative, aggressive, not sleeping, verbally abusive, labile mood, wandering, hallucinations. Goal aimed: increase relaxation and sensory stimulation Initial Goal: Pt will participate in at least three individual or group Activity Therapy sessions before discharge. Weekly progress towards goal: on track (02/06-douglas chi and things that go together and music, 02/15- chocolate chip day trivia and cookies) Group participation level: none Weekly highlights: Behaviors observed: sleeping often, more calm and pleasant, almost exposed another pt by trying to lift up his blanket and became agitated with staff when trying to redirect, pt almost sat on the other pt but was moved away, made eye contact with AT Plan: no change to goal Beneficial adaptations:
--- NOTE | 2021-02-25 14:30 | TX PLAN ---
Interdisciplinary Tx Plan Admission Information Jan 26, 2021 at 16:12 Legal Status (on Admission): Voluntary, DPOA DPOA/Guardian Name: Miky Denise-spouse Contact Other Contact Name: Miky Denise Other Contact Verified Code Status: Full Code Allergies: Coded Allergies: No Known Drug Allergies (Unverified , 01/26/21) Estimated Length of Stay: 14 Diagnoses Primary Diagnosis: Dementia with behavioral disturbance Reasons for Admission: Aggressive, Agitated, Sig. Change Sleep, Anxiety/Panic, Hallucinations, Combative, Confusion/Disoriented, Poor impulse control Problem in Patient's Words: Jillian is having progressive memory loss and most recently has become combative with spouse prompting her admission to [facility]. Additional Admission Comments: Per intake record, combative, aggressive, not sleeping, verbaly abusive, mood lability, wandering, hallucinating. Problems Active Problems: Combative, aggressive insomnia verbally abusive, yelling out resisits care labile mood wandering and door checking hallucinating Inactive Problems: medication compliant Pt Strengths/Limitations Ability for [place]: Poor Cognitive Functioning/Ability: Poor Communication Skills/Ability: Poor Financial Resources: Fair Insight/Judgement: Poor Intellectual Ability: Fair Physical Health: Fair Social Skills: Poor Stability in Family: Fair Verbal Skills: Poor Discharge Criteria Discharge Criteria: Adequate arrangements @DC, Improved behavior, Improved mood/thought Preliminary Discharge Plan Preliminary DC Plan: Memory Care, Home Special Precautions Special Precautions: Agitation/Assault Fall Risk: High Initial D/C Plan Jillian spouse has expressed desire fore Jillian to return home. For safety reasons, it has been recommended that Jillian be placed in memory care. Identified Discharge Needs: Jillian has fallen down the stairs in her home several times. She has also gotten [place] in [place] and the police assisted to locate her with a helicpoter search. SW discussed placement in memory care as a safer option then Miky taking Jillian home. SW suggested that Miky tour [employer] [facility]. Identified Problems/Hx/Goals Objectives/Short-Term Goals Short Term Goals: Control abnormal behavior, Dec. Aggression, Dec. Anxiety/Panic, Dec. Hallucination/Delus, Medication Stabilization, Monitor Med Effects Short Term Goals in Patient's: Jillian is unable to establish goals. Per spouse at time of intake, mood and behavior stabilization in order to easier care for Jillian. Interventions/Frequency Staff Interventions/Frequency&: Nursing to provide routine safety checks, medication administration, and adl support. Psychiatrist to see three times weekly. SW to see twice weekly. 1:1 visits from recreational therapy to provide socialization. History Vocational History: Jillian went to work for [employer] at age 20. She worked her way up in the company and traveled for [employer]. She worked at [employer] 43 years before being approved for disbality around 2006 for cognitive changes. Social: Unknown Education: Jillian graduated from high school. Community Follow-up Placement needed, f/u with PCP and out patient psychiatry Community Provider/Family Inpu: Treatment team meeting was held on 01/28/21. DEEPA had left message for spouse/POA with invite to particiapte in team meeting via phone. SW recieved voice message from spouse on 01/29/21 indicating he was not well and was considering going to the [place] ER. DEEPA has been unable to reach spouse at this time. data entry clerk of treatment plan was completed on 01/29/21. Treatment Plan Explained Patient/Dispatcher Relay had this treatment plan explained to him/her as indicated by the signature below and has been given the opportunity to ask questions and make suggestions: Date: Patient/Dispatcher Relay Signature: Status Update Update WEEKLY NOTE/UPDATE: Jillian is averaging 75% of meals and six hours of sleep. She is confused, disorganized, intrusive, and resistive to cares and medications. She requires her medications crushed in pudding or ensure. Jillian wanders about the unit daily and is dependent on staff to anticipate her care needs. She is oriented only to herself and has difficulty expressing her needs. She had a non injury fall on 02/23/21. Covid negative on 02/23/21. Jillian is stable for d/c. DEEPA left Miky, spouse, a voice message with intent to coordinate upcoming d/c as he prefers to take Jillian home despite the recommendation for memory care placement. Awaiting return call. ALEXANDRA PAUL February 25, 2021 14:30
--- NOTE | 2021-02-25 14:31 | NUR ---
DEEPA returned phone call to Miky, spouse, with intent to coordinate upcoming discharge. Awaiting return phone call. Addendum: 02/26/21 at 0845 by ALEXANDRA ARENAS On 02/25/21, DEEPA received return call from Miky indicating that he would be available to moss picker Jillian on 03/01/21. Miky plans to take Jillian home and continues to decline recommendations for memory care placement for safety. DEEPA offered home health support and Miky replied, "thank you but no thank you." Miky again shared that he and Jillian are two people that never relied on on anyone or anything. Discussed recommendation for follow up care with Dr. Kamara (PCP) and psychiatry ([facility]). Miky is uncertain if he will continue with Dr. Kamara's services and did not appear to be interested in psychiatry follow up. DEEPA will arrange appointments and note these on d/c instructions. Miky prefers written prescriptions for Jillian medications. Miky plans to pick Jillian up on 03/01/21 at 4pm.
[2021-02-25 15:47] VITALS: BP 109/70
[2021-02-25] MEDS: DIVALPROEX 125 MG CAP.SPRINK PO SCH (20:47)
[2021-02-25] MEDS: QUEtiapine 100 MG TABLET. PO SCH (20:47)
[2021-02-25] MEDS: TAMSULOSIN 0.4 MG CAP.ER.24H. PO SCH (20:47)
--- NOTE | 2021-02-25 22:07 | PDOC ---
Exam Note: Tristan Note: Please also refer to the separate dictated note~for this date of service dictated separately.~Patient seen individually. Discussed the patient with Nursing staff reviewed the chart.~Reviewed interim history and current functioning. Reviewed vital signs,~Labs/ Radiology~and current medications noted below. Continue current treatment with the changes noted in the dictated addendum note Assessment: Vital Signs/I&O: Vital Signs Date Time Temp Pulse Resp B/P (MAP) Pulse Ox O2 Delivery O2 Flow Rate FiO2 02/25/21 15:47 98.4 76 18 109/70 (83) 96 02/24/21 06:00 Room Air I & O 02/24/21 02/24/21 02/25/21 15:00 23:00 07:00 Intake Total 690 ml 240 ml Balance 690 ml 240 ml Labs: Laboratory Tests Test 02/25/21 06:40 White Blood Count 4.9 x10^3/uL (4.0-11.0) Red Blood Count 4.26 x10^6/uL (3.50-5.40) Hemoglobin 12.9 g/dL (12.0-15.5) Hematocrit 38.2 % (36.0-47.0) Mean Corpuscular Volume 90 fL (79-100) Mean Corpuscular Hemoglobin 30 pg (25-35) Mean Corpuscular Hemoglobin Concent 34 g/dL (31-37) Red Cell Distribution Width 13.4 % (11.5-14.5) Platelet Count 145 x10^3/uL (140-400) Neutrophils (%) (Auto) 70 % (31-73) Lymphocytes (%) (Auto) 16 % (24-48) L Monocytes (%) (Auto) 13 % (0-9) H Eosinophils (%) (Auto) 1 % (0-3) Basophils (%) (Auto) 0 % (0-3) Neutrophils # (Auto) 3.4 x10^3uL (1.8-7.7) Lymphocytes # (Auto) 0.8 x10^3/uL (1.0-4.8) L Monocytes # (Auto) 0.6 x10^3/uL (0.0-1.1) Eosinophils # (Auto) 0.0 x10^3/uL (0.0-0.7) Basophils # (Auto) 0.0 x10^3/uL (0.0-0.2) Sodium Level 149 mmol/L (136-145) H Potassium Level 4.2 mmol/L (3.5-5.1) Chloride Level 107 mmol/L (98-107) Carbon Dioxide Level 34 mmol/L (21-32) H Anion Gap 8 (6-14) Blood Urea Nitrogen 30 mg/dL (7-20) H Creatinine 0.8 mg/dL (0.6-1.0) Estimated GFR (Cockcroft-Gault) 70.3 BUN/Creatinine Ratio 38 (6-20) H Glucose Level 73 mg/dL (70-99) Calcium Level 9.2 mg/dL (8.5-10.1) Total Bilirubin 0.2 mg/dL (0.2-1.0) Aspartate Amino Transferase (AST) 23 U/L (15-37) Alanine Aminotransferase (ALT) 20 U/L (14-59) Alkaline Phosphatase 65 U/L (46-116) Total Protein 6.7 g/dL (6.4-8.2) Albumin 3.2 g/dL (3.4-5.0) L Albumin/Globulin Ratio 0.9 (1.0-1.7) L Current Medications: Meds: Laboratory Tests Test 02/25/21 06:40 White Blood Count 4.9 x10^3/uL Red Blood Count 4.26 x10^6/uL Hemoglobin 12.9 g/dL Hematocrit 38.2 % Mean Corpuscular Volume 90 fL Mean Corpuscular Hemoglobin 30 pg Mean Corpuscular Hemoglobin Concent 34 g/dL Red Cell Distribution Width 13.4 % Platelet Count 145 x10^3/uL Neutrophils (%) (Auto) 70 % Lymphocytes (%) (Auto) 16 % Monocytes (%) (Auto) 13 % Eosinophils (%) (Auto) 1 % Basophils (%) (Auto) 0 % Neutrophils # (Auto) 3.4 x10^3uL Lymphocytes # (Auto) 0.8 x10^3/uL Monocytes # (Auto) 0.6 x10^3/uL Eosinophils # (Auto) 0.0 x10^3/uL Basophils # (Auto) 0.0 x10^3/uL Sodium Level 149 mmol/L Potassium Level 4.2 mmol/L Chloride Level 107 mmol/L Carbon Dioxide Level 34 mmol/L Anion Gap 8 Blood Urea Nitrogen 30 mg/dL Creatinine 0.8 mg/dL Estimated GFR (Cockcroft-Gault) 70.3 BUN/Creatinine Ratio 38 Glucose Level 73 mg/dL Calcium Level 9.2 mg/dL Total Bilirubin 0.2 mg/dL Aspartate Amino Transf (AST/SGOT) 23 U/L Alanine Aminotransferase (ALT/SGPT) 20 U/L Alkaline Phosphatase 65 U/L Total Protein 6.7 g/dL Albumin 3.2 g/dL Albumin/Globulin Ratio 0.9 Current Medications Medications (Trade) Dose Ordered Sig/Rufus Route PRN Reason Start Time Stop Time Status Last Admin Dose Admin Divalproex Sodium (Depakote Er) 250 mg BID PO 01/26/21 21:00 01/26/21 19:08 DC Donepezil HCl (Aricept) 10 mg DAILY PO 01/27/21 09:00 01/29/21 18:45 DC 01/29/21 08:42 Acetaminophen/ Hydrocodone Bitart (Lortab 10/325) 1 tab PRN BID PRN PO MODERATE TO SEVERE PAIN 01/26/21 16:15 02/14/21 10:23 Lorazepam (Ativan) 0.5 mg PRN TID PRN PO ANXIETY 01/26/21 16:15 01/26/21 18:01 DC 01/26/21 17:50 Memantine (Namenda) 10 mg DAILY PO 01/27/21 09:00 01/29/21 18:45 DC 01/29/21 08:41 Phenytoin Sodium (Dilantin) 100 mg QHS PO 01/26/21 21:00 01/31/21 23:00 DC 01/31/21 21:06 Quetiapine Fumarate (SEROquel) 25 mg BID PO 01/26/21 21:00 01/29/21 18:45 DC 01/29/21 08:41 Acetaminophen (Tylenol) 650 mg PRN Q6HRS PRN PO MILD PAIN / TEMP > 100.3'F 01/26/21 16:30 02/20/21 05:55 Multi-Ingredient Ointment (Analgesic [place]) 1 david PRN QID PRN TP MUSCLE PAIN 01/26/21 16:30 Al Hydroxide/Mg Hydroxide (Mylanta Plus Xs) 15 ml PRN AFTMEALHC PRN PO DYSPEPSIA 01/26/21 16:30 Magnesium Hydroxide (Milk Of Magnesia) 2,400 mg PRN QHS PRN PO CONSTIPATION 01/26/21 16:30 02/22/21 20:19 Olanzapine (ZyPREXA ZYDIS) 1.25 mg PRN Q2HR PRN PO PSYCHOSIS 01/26/21 18:00 01/28/21 23:35 DC 01/28/21 22:02 Divalproex Sodium (Depakote Sprinkles) 250 mg BID PO 01/26/21 21:00 02/15/21 16:00 DC 02/15/21 08:22 Olanzapine (ZyPREXA ZYDIS) 2.5 mg PRN Q2HR PRN PO PSYCHOSIS 01/28/21 23:45 02/15/21 03:59 Trazodone HCl (Desyrel) 50 mg PRN QHS PRN PO INSOMNIA, MAY REPEAT X1 01/28/21 23:45 02/16/21 19:19 Quetiapine Fumarate (SEROquel) 25 mg 0900,1300,1700 PO 01/29/21 19:00 01/30/21 19:36 DC 01/30/21 17:25 Sertraline HCl (Zoloft) 25 mg DAILY PO 01/30/21 09:00 02/01/21 21:00 DC 02/01/21 08:35 Vitamin D (Vitamin D3) 50,000 unit WEEKLY PO 01/30/21 14:15 02/20/21 08:07 Quetiapine Fumarate (SEROquel) 37.5 mg 0900,1300,1700 PO 01/31/21 09:00 02/02/21 16:33 DC 02/02/21 12:41 Sertraline HCl (Zoloft) 50 mg DAILY PO 02/02/21 09:00 02/25/21 08:40 Tamsulosin HCl (Flomax) 0.4 mg QHS PO 01/31/21 21:00 02/25/21 20:47 Quetiapine Fumarate (SEROquel) 50 mg 0900,1200 PO 02/03/21 09:00 02/05/21 18:41 DC 02/05/21 12:49 Quetiapine Fumarate (SEROquel) 25 mg QHS PO 02/02/21 21:00 02/15/21 16:00 DC 02/14/21 20:11 Quetiapine Fumarate (SEROquel) 25 mg DAILY@1700 PO 02/03/21 18:00 02/05/21 18:41 DC 02/05/21 17:09 Ascorbic Acid (Vitamin C) 1,000 mg DAILY PO 02/05/21 09:00 02/25/21 08:40 Quetiapine Fumarate (SEROquel) 50 mg 0900,1300,1700 PO 02/06/21 09:00 02/15/21 16:00 DC 02/15/21 12:11 Cefdinir (Omnicef) 300 mg BID PO 02/11/21 21:00 02/19/21 22:00 DC 02/19/21 21:03 Lactobacillus Rhamnosus (Culturelle) 1 cap BID PO 02/14/21 09:00 02/25/21 20:47 Divalproex Sodium (Depakote Sprinkles) 500 mg HS PO 02/15/21 21:00 02/25/21 20:47 Quetiapine Fumarate (SEROquel) 100 mg QHS PO 02/15/21 21:00 02/25/21 20:47 Quetiapine Fumarate (SEROquel) 50 mg DAILY PO 02/16/21 09:00 02/25/21 08:40 Pseudoephedrine HCl (Sudafed 12-Hour) 240 mg DAILY PO 02/18/21 09:00 02/23/21 21:41 DC 02/23/21 08:30 Cetirizine HCl (ZyrTEC) 10 mg DAILY PO 02/18/21 09:00 02/25/21 08:40 Artificial Tears (Artificial Tears) 1 drop PRN Q2HRS PRN OU DRY EYE 02/20/21 16:30 02/20/21 18:28 DC Pseudoephedrine HCl (Sudafed 12-Hour) 120 mg PRN DAILY PRN PO CONGESTION 02/23/21 22:00 I have reviewed the current psychotropics carefully including drug interactions. Risk benefit ratio favors no change other than as noted in my dictated progress note. 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
--- NOTE | 2021-02-26 00:19 | NUR ---
Nursing note Pt confused wandering through the unit intrusive and irritable. PO meds in pudding one bite takes them with some encouragement. Highly combative with ADL's and care, screams uncontrollably when anything is done to her. Highly aggressive and misperceives all actions around her. Pt is calm if left alone to wander.
[2021-02-26 05:48] VITALS: BP 110/61
[2021-02-26] MEDS: QUEtiapine 50 MG TABLET. PO SCH (08:07)
[2021-02-26] MEDS: ASCORBIC ACID 1,000 MG TABLET PO SCH (08:07)
[2021-02-26] MEDS: LACTOBACILLUS RHAMNOSUS GG 1 CAPSULE. PO SCH ×2 (08:07→20:13)
[2021-02-26] MEDS: SERTRALINE 50 MG TABLET. PO SCH (08:07)
[2021-02-26] MEDS: CETIRIZINE HCL 10 MG TABLET PO SCH (08:07)
--- NOTE | 2021-02-26 10:46 | NUR ---
[facility] Social Work Discharge Planning Form Patient Name JILLIAN HERRING Admit Date: 01/26/21 DISCHARGE PLAN Discharge Destination: Home with spouse Care Assessment: N/A Transportation: Spouse to transport on 03/01/21, pick up worker time 4pm. Special Instructions/Notes: Spouse has requested written prescriptions for all of Jillian's medications. DISCHARGE TO HOME: Address: [address] [place] [id number] Responsible Republican: Miky Denise- spouse/POA Pharmacy: [facility] at [address] [place] [address], Psychiatrist/Mental Health Follow Up: [facility], located at [address] [place] [address]. To start services, walk in M-F from 9am-2pm for intake. [facility] contact number is [phone]. Primary Care Follow Up: Dr. Kamara, , (fax) Appointment: Jillian has an appointment scheduled with Dr. Kamara on 03/11/21 at 11:30am. Home Health: Miky declined home health services.
[2021-02-26 15:47] VITALS: BP 111/68
--- NOTE | 2021-02-26 17:37 | NUR ---
Pt continues to wander the unit, very disorganized, word salad, eats very small amounts at meal time sits for very short periods of time so I try giving her finger foods and snacks throughout the day. Patient is continent she goes into others bathrooms to use the restroom. Patient offered a mask but due to dementia she does not wear it. Patient vitals stable and wnl of baseline printed out xray of left shoulder which showed chronic dislocation fx. as well as uti came back gram neg rods and ecoli with many bacteria. Patient took meds with hot chocolate. Will continue to monitor patient, no complaints of pain or discomfort to report. Addendum: 02/26/21 at 1827 by NORMA LANGE RN Dr Romeo will wait until the C&S for the urine culture and will follow up with the left shoulder fx and dislocation with orthopedic surgeon tomorrow.
[2021-02-26] MEDS: QUEtiapine 100 MG TABLET. PO SCH (20:13)
[2021-02-26] MEDS: TAMSULOSIN 0.4 MG CAP.ER.24H. PO SCH (20:13)
[2021-02-26] MEDS: DIVALPROEX 125 MG CAP.SPRINK PO SCH (20:13)
--- NOTE | 2021-02-26 21:49 | PDOC ---
Exam Note: Tristan Note: Please also refer to the separate dictated note~for this date of service dictated separately.~Patient seen individually. Discussed the patient with Nursing staff reviewed the chart.~Reviewed interim history and current functioning. Reviewed vital signs,~Labs/ Radiology~and current medications noted below. Continue current treatment with the changes noted in the dictated addendum note Assessment: Vital Signs/I&O: Vital Signs Date Time Temp Pulse Resp B/P (MAP) Pulse Ox O2 Delivery O2 Flow Rate FiO2 02/26/21 15:47 98.7 86 18 111/68 (82) 93 02/24/21 06:00 Room Air I & O 02/25/21 02/25/21 02/26/21 15:00 23:00 07:00 Intake Total 960 ml 720 ml Balance 960 ml 720 ml Current Medications: Meds: Current Medications Medications (Trade) Dose Ordered Sig/Rufus Route PRN Reason Start Time Stop Time Status Last Admin Dose Admin Divalproex Sodium (Depakote Er) 250 mg BID PO 01/26/21 21:00 01/26/21 19:08 DC Donepezil HCl (Aricept) 10 mg DAILY PO 01/27/21 09:00 01/29/21 18:45 DC 01/29/21 08:42 Acetaminophen/ Hydrocodone Bitart (Lortab 10/325) 1 tab PRN BID PRN PO MODERATE TO SEVERE PAIN 01/26/21 16:15 02/14/21 10:23 Lorazepam (Ativan) 0.5 mg PRN TID PRN PO ANXIETY 01/26/21 16:15 01/26/21 18:01 DC 01/26/21 17:50 Memantine (Namenda) 10 mg DAILY PO 01/27/21 09:00 01/29/21 18:45 DC 01/29/21 08:41 Phenytoin Sodium (Dilantin) 100 mg QHS PO 01/26/21 21:00 01/31/21 23:00 DC 01/31/21 21:06 Quetiapine Fumarate (SEROquel) 25 mg BID PO 01/26/21 21:00 01/29/21 18:45 DC 01/29/21 08:41 Acetaminophen (Tylenol) 650 mg PRN Q6HRS PRN PO MILD PAIN / TEMP > 100.3'F 01/26/21 16:30 02/20/21 05:55 Multi-Ingredient Ointment (Analgesic [place]) 1 david PRN QID PRN TP MUSCLE PAIN 01/26/21 16:30 Al Hydroxide/Mg Hydroxide (Mylanta Plus Xs) 15 ml PRN AFTMEALHC PRN PO DYSPEPSIA 01/26/21 16:30 Magnesium Hydroxide (Milk Of Magnesia) 2,400 mg PRN QHS PRN PO CONSTIPATION 01/26/21 16:30 02/22/21 20:19 Olanzapine (ZyPREXA ZYDIS) 1.25 mg PRN Q2HR PRN PO PSYCHOSIS 01/26/21 18:00 01/28/21 23:35 DC 01/28/21 22:02 Divalproex Sodium (Depakote Sprinkles) 250 mg BID PO 01/26/21 21:00 02/15/21 16:00 DC 02/15/21 08:22 Olanzapine (ZyPREXA ZYDIS) 2.5 mg PRN Q2HR PRN PO PSYCHOSIS 01/28/21 23:45 02/15/21 03:59 Trazodone HCl (Desyrel) 50 mg PRN QHS PRN PO INSOMNIA, MAY REPEAT X1 01/28/21 23:45 02/16/21 19:19 Quetiapine Fumarate (SEROquel) 25 mg 0900,1300,1700 PO 01/29/21 19:00 01/30/21 19:36 DC 01/30/21 17:25 Sertraline HCl (Zoloft) 25 mg DAILY PO 01/30/21 09:00 02/01/21 21:00 DC 02/01/21 08:35 Vitamin D (Vitamin D3) 50,000 unit WEEKLY PO 01/30/21 14:15 02/20/21 08:07 Quetiapine Fumarate (SEROquel) 37.5 mg 0900,1300,1700 PO 01/31/21 09:00 02/02/21 16:33 DC 02/02/21 12:41 Sertraline HCl (Zoloft) 50 mg DAILY PO 02/02/21 09:00 02/26/21 08:07 Tamsulosin HCl (Flomax) 0.4 mg QHS PO 01/31/21 21:00 02/26/21 20:13 Quetiapine Fumarate (SEROquel) 50 mg 0900,1200 PO 02/03/21 09:00 02/05/21 18:41 DC 02/05/21 12:49 Quetiapine Fumarate (SEROquel) 25 mg QHS PO 02/02/21 21:00 02/15/21 16:00 DC 02/14/21 20:11 Quetiapine Fumarate (SEROquel) 25 mg DAILY@1700 PO 02/03/21 18:00 02/05/21 18:41 DC 02/05/21 17:09 Ascorbic Acid (Vitamin C) 1,000 mg DAILY PO 02/05/21 09:00 02/26/21 08:07 Quetiapine Fumarate (SEROquel) 50 mg 0900,1300,1700 PO 02/06/21 09:00 02/15/21 16:00 DC 02/15/21 12:11 Cefdinir (Omnicef) 300 mg BID PO 02/11/21 21:00 02/19/21 22:00 DC 02/19/21 21:03 Lactobacillus Rhamnosus (Culturelle) 1 cap BID PO 02/14/21 09:00 02/26/21 20:13 Divalproex Sodium (Depakote Sprinkles) 500 mg HS PO 02/15/21 21:00 02/26/21 20:13 Quetiapine Fumarate (SEROquel) 100 mg QHS PO 02/15/21 21:00 02/26/21 20:13 Quetiapine Fumarate (SEROquel) 50 mg DAILY PO 02/16/21 09:00 02/26/21 08:07 Pseudoephedrine HCl (Sudafed 12-Hour) 240 mg DAILY PO 02/18/21 09:00 02/23/21 21:41 DC 02/23/21 08:30 Cetirizine HCl (ZyrTEC) 10 mg DAILY PO 02/18/21 09:00 02/26/21 08:07 Artificial Tears (Artificial Tears) 1 drop PRN Q2HRS PRN OU DRY EYE 02/20/21 16:30 02/20/21 18:28 DC Pseudoephedrine HCl (Sudafed 12-Hour) 120 mg PRN DAILY PRN PO CONGESTION 02/23/21 22:00 I have reviewed the current psychotropics carefully including drug interactions. Risk benefit ratio favors no change other than as noted in my dictated progress note. Diagnosis: Problems: (1) Major neurocognitive disorder (2) Impulse control disorder, unspecified (3) Anxiety disorder, unspecified (4) Dementia, vascular, with depression (5) Dementia, vascular, with delusions (6) Dementia in Alzheimer's disease with depression (7) Dementia in Alzheimer's disease with delusions (8) Dementia of the Alzheimer's type with early onset with behavioral disturbance JOSE MIGUEL MCGOWAN MD February 26, 2021 21:49
--- NOTE | 2021-02-27 00:36 | NUR ---
Pt wandering in hallway when approached. Pt confused and disorganized; pt has had one episode of yelling out but has been mostly calm and pleasant this evening. Pt cooperative with assessment and compliant with medications administered crushed in pudding.
[2021-02-27 06:16] VITALS: BP 121/82
--- NOTE | 2021-02-27 07:36 | PDOC ---
Exam Note: Tristan Note: This note is a late entry for 02/08/2021 covers elements not covered in my initial note. Subjective: This note was initially completed on 02/08/2021 but cannot be retrieved in the electronic medical system and is being re-dictated today 02/26/2021. The patient was seen individually in the evening of 02/08/2021 with Eagle BUTLER, discussed and reviewed the chart. The patients talked to the patient around 8 p.m. She was restless after this. Received Zyprexa. She does seem to have some recognition of her and that is probably partly the reason for the agitation. Review of Systems: No CV, , pulmonary, eye, ENT system symptoms on review. Reliability poor. Mental Status Exam: The patient is oriented to herself. Insight and judgment, recent and remote memory, attention and concentration, fund of knowledge is poor consistent with her diagnoses. Laboratory Data: Reviewed. Impression: Major neurocognitive disorder Alzheimer vascular with delusion, depression, and behavioral disturbance. Anxiety disorder unspecified. Impulse control disorder unspecified. Plan: Continue current psychotropics from initial note. Dr. Mtz will cover for me starting from 02/09/2021 at 8 a.m. till 02/24/2021 at 8 p.m. Assessment: Vital Signs/I&O: Vital Signs Date Time Temp Pulse Resp B/P (MAP) Pulse Ox O2 Delivery O2 Flow Rate FiO2 02/27/21 06:16 98.2 75 20 121/82 (95) 92 Room Air I & O 02/26/21 02/26/21 02/27/21 14:59 22:59 06:59 Intake Total 840 ml 480 ml Balance 840 ml 480 ml Current Medications: Meds: Current Medications Medications (Trade) Dose Ordered Sig/Rufus Route PRN Reason Start Time Stop Time Status Last Admin Dose Admin Divalproex Sodium (Depakote Er) 250 mg BID PO 01/26/21 21:00 01/26/21 19:08 DC Donepezil HCl (Aricept) 10 mg DAILY PO 01/27/21 09:00 01/29/21 18:45 DC 01/29/21 08:42 Acetaminophen/ Hydrocodone Bitart (Lortab 10/325) 1 tab PRN BID PRN PO MODERATE TO SEVERE PAIN 01/26/21 16:15 02/14/21 10:23 Lorazepam (Ativan) 0.5 mg PRN TID PRN PO ANXIETY 01/26/21 16:15 01/26/21 18:01 DC 01/26/21 17:50 Memantine (Namenda) 10 mg DAILY PO 01/27/21 09:00 01/29/21 18:45 DC 01/29/21 08:41 Phenytoin Sodium (Dilantin) 100 mg QHS PO 01/26/21 21:00 01/31/21 23:00 DC 01/31/21 21:06 Quetiapine Fumarate (SEROquel) 25 mg BID PO 01/26/21 21:00 01/29/21 18:45 DC 01/29/21 08:41 Acetaminophen (Tylenol) 650 mg PRN Q6HRS PRN PO MILD PAIN / TEMP > 100.3'F 01/26/21 16:30 02/20/21 05:55 Multi-Ingredient Ointment (Analgesic [place]) 1 david PRN QID PRN TP MUSCLE PAIN 01/26/21 16:30 Al Hydroxide/Mg Hydroxide (Mylanta Plus Xs) 15 ml PRN AFTMEALHC PRN PO DYSPEPSIA 01/26/21 16:30 Magnesium Hydroxide (Milk Of Magnesia) 2,400 mg PRN QHS PRN PO CONSTIPATION 01/26/21 16:30 02/22/21 20:19 Olanzapine (ZyPREXA ZYDIS) 1.25 mg PRN Q2HR PRN PO PSYCHOSIS 01/26/21 18:00 01/28/21 23:35 DC 01/28/21 22:02 Divalproex Sodium (Depakote Sprinkles) 250 mg BID PO 01/26/21 21:00 02/15/21 16:00 DC 02/15/21 08:22 Olanzapine (ZyPREXA ZYDIS) 2.5 mg PRN Q2HR PRN PO PSYCHOSIS 01/28/21 23:45 02/15/21 03:59 Trazodone HCl (Desyrel) 50 mg PRN QHS PRN PO INSOMNIA, MAY REPEAT X1 01/28/21 23:45 02/16/21 19:19 Quetiapine Fumarate (SEROquel) 25 mg 0900,1300,1700 PO 01/29/21 19:00 01/30/21 19:36 DC 01/30/21 17:25 Sertraline HCl (Zoloft) 25 mg DAILY PO 01/30/21 09:00 02/01/21 21:00 DC 02/01/21 08:35 Vitamin D (Vitamin D3) 50,000 unit WEEKLY PO 01/30/21 14:15 02/20/21 08:07 Quetiapine Fumarate (SEROquel) 37.5 mg 0900,1300,1700 PO 01/31/21 09:00 02/02/21 16:33 DC 02/02/21 12:41 Sertraline HCl (Zoloft) 50 mg DAILY PO 02/02/21 09:00 02/26/21 08:07 Tamsulosin HCl (Flomax) 0.4 mg QHS PO 01/31/21 21:00 02/26/21 20:13 Quetiapine Fumarate (SEROquel) 50 mg 0900,1200 PO 02/03/21 09:00 02/05/21 18:41 DC 02/05/21 12:49 Quetiapine Fumarate (SEROquel) 25 mg QHS PO 02/02/21 21:00 02/15/21 16:00 DC 02/14/21 20:11 Quetiapine Fumarate (SEROquel) 25 mg DAILY@1700 PO 02/03/21 18:00 02/05/21 18:41 DC 02/05/21 17:09 Ascorbic Acid (Vitamin C) 1,000 mg DAILY PO 02/05/21 09:00 02/26/21 08:07 Quetiapine Fumarate (SEROquel) 50 mg 0900,1300,1700 PO 02/06/21 09:00 02/15/21 16:00 DC 02/15/21 12:11 Cefdinir (Omnicef) 300 mg BID PO 02/11/21 21:00 02/19/21 22:00 DC 02/19/21 21:03 Lactobacillus Rhamnosus (Culturelle) 1 cap BID PO 02/14/21 09:00 02/26/21 20:13 Divalproex Sodium (Depakote Sprinkles) 500 mg HS PO 02/15/21 21:00 02/26/21 20:13 Quetiapine Fumarate (SEROquel) 100 mg QHS PO 02/15/21 21:00 02/26/21 20:13 Quetiapine Fumarate (SEROquel) 50 mg DAILY PO 02/16/21 09:00 02/26/21 08:07 Pseudoephedrine HCl (Sudafed 12-Hour) 240 mg DAILY PO 02/18/21 09:00 02/23/21 21:41 DC 02/23/21 08:30 Cetirizine HCl (ZyrTEC) 10 mg DAILY PO 02/18/21 09:00 02/26/21 08:07 Artificial Tears (Artificial Tears) 1 drop PRN Q2HRS PRN OU DRY EYE 02/20/21 16:30 02/20/21 18:28 DC Pseudoephedrine HCl (Sudafed 12-Hour) 120 mg PRN DAILY PRN PO CONGESTION 02/23/21 22:00 I have reviewed the current psychotropics carefully including drug interactions. Risk benefit ratio favors no change other than as noted in my dictated progress note. Diagnosis: Problems: (1) Major neurocognitive disorder (2) Impulse control disorder, unspecified (3) Anxiety disorder, unspecified (4) Dementia, vascular, with depression (5) Dementia, vascular, with delusions (6) Dementia in Alzheimer's disease with depression (7) Dementia in Alzheimer's disease with delusions (8) Dementia of the Alzheimer's type with early onset with behavioral disturbance JOSE MIGUEL MCGOWAN MD February 27, 2021 07:36
--- NOTE | 2021-02-27 08:22 | PDOC ---
Exam Note: Tristan Note: This note is a late entry for 02/25/2021 covers elements not covered in my initial note. Subjective: The patient was reviewed in the morning of 02/25/2021 for a treatment team meeting with Tabitha Lee, Tory Becerra and Anastasia (social studies department chair), Mariel, activity therapy and Nora RN, discussed and reviewed the chart. The patient slept 6-1/4 hours previous night. She remains confused. She did have a fall on 02/23, less resistive to cares. She takes medications with chocolate Ensure. She has been calmer. Her is insistent on having her home. director of home health services will coordinate with Adult Protective Services and perhaps outpatient follow up with [facility] [place]note 2] though arrangements for this may be challenging given the extent of her dementia. Valproic acid level is therapeutic at 96. Review of Systems: No CV, , pulmonary, eye, ENT system symptoms on review. Reliability poor. Mental Status Exam: The patient is oriented to herself. Insight and judgment, recent and remote memory, attention and concentration, fund of knowledge is poor consistent with her diagnoses. Laboratory Data: Reviewed. Impression: Major neurocognitive disorder Alzheimer vascular with delusion, depression, and behavioral disturbance. Anxiety disorder unspecified. Impulse control disorder unspecified. Plan: I have carefully reviewed the patients current psychotropics and reviewed information with Dr. Mtz who had covered for me for the past 2 weeks. Continue psychotropics and adjust further as clinically indicated. Assessment: Vital Signs/I&O: Vital Signs Date Time Temp Pulse Resp B/P (MAP) Pulse Ox O2 Delivery O2 Flow Rate FiO2 02/27/21 06:16 98.2 75 20 121/82 (95) 92 Room Air I & O 02/26/21 02/26/21 02/27/21 14:59 22:59 06:59 Intake Total 840 ml 480 ml Balance 840 ml 480 ml Current Medications: Meds: Current Medications Medications (Trade) Dose Ordered Sig/Rufus Route PRN Reason Start Time Stop Time Status Last Admin Dose Admin Divalproex Sodium (Depakote Er) 250 mg BID PO 01/26/21 21:00 01/26/21 19:08 DC Donepezil HCl (Aricept) 10 mg DAILY PO 01/27/21 09:00 01/29/21 18:45 DC 01/29/21 08:42 Acetaminophen/ Hydrocodone Bitart (Lortab 10/325) 1 tab PRN BID PRN PO MODERATE TO SEVERE PAIN 01/26/21 16:15 02/14/21 10:23 Lorazepam (Ativan) 0.5 mg PRN TID PRN PO ANXIETY 01/26/21 16:15 01/26/21 18:01 DC 01/26/21 17:50 Memantine (Namenda) 10 mg DAILY PO 01/27/21 09:00 01/29/21 18:45 DC 01/29/21 08:41 Phenytoin Sodium (Dilantin) 100 mg QHS PO 01/26/21 21:00 01/31/21 23:00 DC 01/31/21 21:06 Quetiapine Fumarate (SEROquel) 25 mg BID PO 01/26/21 21:00 01/29/21 18:45 DC 01/29/21 08:41 Acetaminophen (Tylenol) 650 mg PRN Q6HRS PRN PO MILD PAIN / TEMP > 100.3'F 01/26/21 16:30 02/20/21 05:55 Multi-Ingredient Ointment (Analgesic [place]) 1 david PRN QID PRN TP MUSCLE PAIN 01/26/21 16:30 Al Hydroxide/Mg Hydroxide (Mylanta Plus Xs) 15 ml PRN AFTMEALHC PRN PO DYSPEPSIA 01/26/21 16:30 Magnesium Hydroxide (Milk Of Magnesia) 2,400 mg PRN QHS PRN PO CONSTIPATION 01/26/21 16:30 02/22/21 20:19 Olanzapine (ZyPREXA ZYDIS) 1.25 mg PRN Q2HR PRN PO PSYCHOSIS 01/26/21 18:00 01/28/21 23:35 DC 01/28/21 22:02 Divalproex Sodium (Depakote Sprinkles) 250 mg BID PO 01/26/21 21:00 02/15/21 16:00 DC 02/15/21 08:22 Olanzapine (ZyPREXA ZYDIS) 2.5 mg PRN Q2HR PRN PO PSYCHOSIS 01/28/21 23:45 02/15/21 03:59 Trazodone HCl (Desyrel) 50 mg PRN QHS PRN PO INSOMNIA, MAY REPEAT X1 01/28/21 23:45 02/16/21 19:19 Quetiapine Fumarate (SEROquel) 25 mg 0900,1300,1700 PO 01/29/21 19:00 01/30/21 19:36 DC 01/30/21 17:25 Sertraline HCl (Zoloft) 25 mg DAILY PO 01/30/21 09:00 02/01/21 21:00 DC 02/01/21 08:35 Vitamin D (Vitamin D3) 50,000 unit WEEKLY PO 01/30/21 14:15 02/20/21 08:07 Quetiapine Fumarate (SEROquel) 37.5 mg 0900,1300,1700 PO 01/31/21 09:00 02/02/21 16:33 DC 02/02/21 12:41 Sertraline HCl (Zoloft) 50 mg DAILY PO 02/02/21 09:00 02/26/21 08:07 Tamsulosin HCl (Flomax) 0.4 mg QHS PO 01/31/21 21:00 02/26/21 20:13 Quetiapine Fumarate (SEROquel) 50 mg 0900,1200 PO 02/03/21 09:00 02/05/21 18:41 DC 02/05/21 12:49 Quetiapine Fumarate (SEROquel) 25 mg QHS PO 02/02/21 21:00 02/15/21 16:00 DC 02/14/21 20:11 Quetiapine Fumarate (SEROquel) 25 mg DAILY@1700 PO 02/03/21 18:00 02/05/21 18:41 DC 02/05/21 17:09 Ascorbic Acid (Vitamin C) 1,000 mg DAILY PO 02/05/21 09:00 02/26/21 08:07 Quetiapine Fumarate (SEROquel) 50 mg 0900,1300,1700 PO 02/06/21 09:00 02/15/21 16:00 DC 02/15/21 12:11 Cefdinir (Omnicef) 300 mg BID PO 02/11/21 21:00 02/19/21 22:00 DC 02/19/21 21:03 Lactobacillus Rhamnosus (Culturelle) 1 cap BID PO 02/14/21 09:00 02/26/21 20:13 Divalproex Sodium (Depakote Sprinkles) 500 mg HS PO 02/15/21 21:00 02/26/21 20:13 Quetiapine Fumarate (SEROquel) 100 mg QHS PO 02/15/21 21:00 02/26/21 20:13 Quetiapine Fumarate (SEROquel) 50 mg DAILY PO 02/16/21 09:00 02/26/21 08:07 Pseudoephedrine HCl (Sudafed 12-Hour) 240 mg DAILY PO 02/18/21 09:00 02/23/21 21:41 DC 02/23/21 08:30 Cetirizine HCl (ZyrTEC) 10 mg DAILY PO 02/18/21 09:00 02/26/21 08:07 Artificial Tears (Artificial Tears) 1 drop PRN Q2HRS PRN OU DRY EYE 02/20/21 16:30 02/20/21 18:28 DC Pseudoephedrine HCl (Sudafed 12-Hour) 120 mg PRN DAILY PRN PO CONGESTION 02/23/21 22:00 I have reviewed the current psychotropics carefully including drug interactions. Risk benefit ratio favors no change other than as noted in my dictated progress note. Diagnosis: Problems: (1) Major neurocognitive disorder (2) Impulse control disorder, unspecified (3) Anxiety disorder, unspecified (4) Dementia, vascular, with depression (5) Dementia, vascular, with delusions (6) Dementia in Alzheimer's disease with depression (7) Dementia in Alzheimer's disease with delusions (8) Dementia of the Alzheimer's type with early onset with behavioral disturbance JOSE MIGUEL MCGOWAN MD February 27, 2021 08:22
[2021-02-27] MEDS: SERTRALINE 50 MG TABLET. PO SCH (08:33)
[2021-02-27] MEDS: LACTOBACILLUS RHAMNOSUS GG 1 CAPSULE. PO SCH ×2 (08:33→20:03)
[2021-02-27] MEDS: ASCORBIC ACID 1,000 MG TABLET PO SCH ×2 (08:33→09:00)
[2021-02-27] MEDS: QUEtiapine 50 MG TABLET. PO SCH (08:33)
[2021-02-27] MEDS: CETIRIZINE HCL 10 MG TABLET PO SCH ×2 (08:33→09:00)
[2021-02-27] MEDS: CHOLECALCIFEROL (VITAMIN D3) 50,000 UNIT CAPSULE PO SCH (08:33)
--- NOTE | 2021-02-27 09:00 | PDOC ---
Exam Note: Tristan Note: This note is a late entry for 02/26/2021 covers elements not covered in my initial note. Subjective: The patient was seen individually in the evening of 02/26/2021 with Edgar BUTLRE, discussed and reviewed the chart. The patient slept 6-3/4 hours previous night. She wanders, confused. No p.r.n.s. given today. Review of Systems: No CV, , pulmonary, eye, ENT system symptoms on review. Reliability poor. Mental Status Exam: The patient is oriented to herself. Insight and judgment, recent and remote memory, attention and concentration, fund of knowledge is poor consistent with her diagnoses. Laboratory Data: Reviewed. Impression: Major neurocognitive disorder Alzheimer vascular with delusion, depression, and behavioral disturbance. Anxiety disorder unspecified. Impulse control disorder unspecified. Plan: Continue current psychotropics from initial note. Assessment: Vital Signs/I&O: Vital Signs Date Time Temp Pulse Resp B/P (MAP) Pulse Ox O2 Delivery O2 Flow Rate FiO2 02/27/21 06:16 98.2 75 20 121/82 (95) 92 Room Air I & O 02/26/21 02/26/21 02/27/21 14:59 22:59 06:59 Intake Total 840 ml 480 ml Balance 840 ml 480 ml Current Medications: Meds: Current Medications Medications (Trade) Dose Ordered Sig/Rufus Route PRN Reason Start Time Stop Time Status Last Admin Dose Admin Divalproex Sodium (Depakote Er) 250 mg BID PO 01/26/21 21:00 01/26/21 19:08 DC Donepezil HCl (Aricept) 10 mg DAILY PO 01/27/21 09:00 01/29/21 18:45 DC 01/29/21 08:42 Acetaminophen/ Hydrocodone Bitart (Lortab 10/325) 1 tab PRN BID PRN PO MODERATE TO SEVERE PAIN 01/26/21 16:15 02/14/21 10:23 Lorazepam (Ativan) 0.5 mg PRN TID PRN PO ANXIETY 01/26/21 16:15 01/26/21 18:01 DC 01/26/21 17:50 Memantine (Namenda) 10 mg DAILY PO 01/27/21 09:00 01/29/21 18:45 DC 01/29/21 08:41 Phenytoin Sodium (Dilantin) 100 mg QHS PO 01/26/21 21:00 01/31/21 23:00 DC 01/31/21 21:06 Quetiapine Fumarate (SEROquel) 25 mg BID PO 01/26/21 21:00 01/29/21 18:45 DC 01/29/21 08:41 Acetaminophen (Tylenol) 650 mg PRN Q6HRS PRN PO MILD PAIN / TEMP > 100.3'F 01/26/21 16:30 02/20/21 05:55 Multi-Ingredient Ointment (Analgesic [place]) 1 david PRN QID PRN TP MUSCLE PAIN 01/26/21 16:30 Al Hydroxide/Mg Hydroxide (Mylanta Plus Xs) 15 ml PRN AFTMEALHC PRN PO DYSPEPSIA 01/26/21 16:30 Magnesium Hydroxide (Milk Of Magnesia) 2,400 mg PRN QHS PRN PO CONSTIPATION 01/26/21 16:30 02/22/21 20:19 Olanzapine (ZyPREXA ZYDIS) 1.25 mg PRN Q2HR PRN PO PSYCHOSIS 01/26/21 18:00 01/28/21 23:35 DC 01/28/21 22:02 Divalproex Sodium (Depakote Sprinkles) 250 mg BID PO 01/26/21 21:00 02/15/21 16:00 DC 02/15/21 08:22 Olanzapine (ZyPREXA ZYDIS) 2.5 mg PRN Q2HR PRN PO PSYCHOSIS 01/28/21 23:45 02/15/21 03:59 Trazodone HCl (Desyrel) 50 mg PRN QHS PRN PO INSOMNIA, MAY REPEAT X1 01/28/21 23:45 02/16/21 19:19 Quetiapine Fumarate (SEROquel) 25 mg 0900,1300,1700 PO 01/29/21 19:00 01/30/21 19:36 DC 01/30/21 17:25 Sertraline HCl (Zoloft) 25 mg DAILY PO 01/30/21 09:00 02/01/21 21:00 DC 02/01/21 08:35 Vitamin D (Vitamin D3) 50,000 unit WEEKLY PO 01/30/21 14:15 02/27/21 08:33 Quetiapine Fumarate (SEROquel) 37.5 mg 0900,1300,1700 PO 01/31/21 09:00 02/02/21 16:33 DC 02/02/21 12:41 Sertraline HCl (Zoloft) 50 mg DAILY PO 02/02/21 09:00 02/27/21 08:33 Tamsulosin HCl (Flomax) 0.4 mg QHS PO 01/31/21 21:00 02/26/21 20:13 Quetiapine Fumarate (SEROquel) 50 mg 0900,1200 PO 02/03/21 09:00 02/05/21 18:41 DC 02/05/21 12:49 Quetiapine Fumarate (SEROquel) 25 mg QHS PO 02/02/21 21:00 02/15/21 16:00 DC 02/14/21 20:11 Quetiapine Fumarate (SEROquel) 25 mg DAILY@1700 PO 02/03/21 18:00 02/05/21 18:41 DC 02/05/21 17:09 Ascorbic Acid (Vitamin C) 1,000 mg DAILY PO 02/05/21 09:00 02/26/21 08:07 Quetiapine Fumarate (SEROquel) 50 mg 0900,1300,1700 PO 02/06/21 09:00 02/15/21 16:00 DC 02/15/21 12:11 Cefdinir (Omnicef) 300 mg BID PO 02/11/21 21:00 02/19/21 22:00 DC 02/19/21 21:03 Lactobacillus Rhamnosus (Culturelle) 1 cap BID PO 02/14/21 09:00 02/27/21 08:33 Divalproex Sodium (Depakote Sprinkles) 500 mg HS PO 02/15/21 21:00 02/26/21 20:13 Quetiapine Fumarate (SEROquel) 100 mg QHS PO 02/15/21 21:00 02/26/21 20:13 Quetiapine Fumarate (SEROquel) 50 mg DAILY PO 02/16/21 09:00 02/27/21 08:33 Pseudoephedrine HCl (Sudafed 12-Hour) 240 mg DAILY PO 02/18/21 09:00 02/23/21 21:41 DC 02/23/21 08:30 Cetirizine HCl (ZyrTEC) 10 mg DAILY PO 02/18/21 09:00 02/26/21 08:07 Artificial Tears (Artificial Tears) 1 drop PRN Q2HRS PRN OU DRY EYE 02/20/21 16:30 02/20/21 18:28 DC Pseudoephedrine HCl (Sudafed 12-Hour) 120 mg PRN DAILY PRN PO CONGESTION 02/23/21 22:00 I have reviewed the current psychotropics carefully including drug interactions. Risk benefit ratio favors no change other than as noted in my dictated progress note. Diagnosis: Problems: (1) Major neurocognitive disorder (2) Impulse control disorder, unspecified (3) Anxiety disorder, unspecified (4) Dementia, vascular, with depression (5) Dementia, vascular, with delusions (6) Dementia in Alzheimer's disease with depression (7) Dementia in Alzheimer's disease with delusions (8) Dementia of the Alzheimer's type with early onset with behavioral disturbance JOSE MIGUEL MCGOWAN MD February 27, 2021 08:59
--- NOTE | 2021-02-27 15:39 | NUR ---
Shift Summary Patient was more irritable today, spit out morning medications and then urinating on floor of room. Patient urine culture did come back with positive UTI , Levaquin by mouth started per medical doctor. No other acute events.
[2021-02-27] MEDS: levoFLOXacin 250 MG TABLET PO SCH (15:49)
[2021-02-27 16:05] VITALS: BP 109/68
[2021-02-27] MEDS: TAMSULOSIN 0.4 MG CAP.ER.24H. PO SCH (20:03)
[2021-02-27] MEDS: DIVALPROEX 125 MG CAP.SPRINK PO SCH (20:03)
[2021-02-27] MEDS: QUEtiapine 100 MG TABLET. PO SCH (20:03)
--- NOTE | 2021-02-27 22:14 | PDOC ---
Exam Note: Tristan Note: Please also refer to the separate dictated note~for this date of service dictated separately.~Patient seen individually. Discussed the patient with Nursing staff reviewed the chart.~Reviewed interim history and current functioning. Reviewed vital signs,~Labs/ Radiology~and current medications noted below. Continue current treatment with the changes noted in the dictated addendum note Assessment: Vital Signs/I&O: Vital Signs Date Time Temp Pulse Resp B/P (MAP) Pulse Ox O2 Delivery O2 Flow Rate FiO2 02/27/21 16:05 98.1 77 18 109/68 (82) 97 02/27/21 06:16 Room Air I & O 02/26/21 02/26/21 02/27/21 15:00 23:00 07:00 Intake Total 840 ml 480 ml Balance 840 ml 480 ml Current Medications: Meds: Current Medications Medications (Trade) Dose Ordered Sig/Rufus Route PRN Reason Start Time Stop Time Status Last Admin Dose Admin Divalproex Sodium (Depakote Er) 250 mg BID PO 01/26/21 21:00 01/26/21 19:08 DC Donepezil HCl (Aricept) 10 mg DAILY PO 01/27/21 09:00 01/29/21 18:45 DC 01/29/21 08:42 Acetaminophen/ Hydrocodone Bitart (Lortab 10/325) 1 tab PRN BID PRN PO MODERATE TO SEVERE PAIN 01/26/21 16:15 02/14/21 10:23 Lorazepam (Ativan) 0.5 mg PRN TID PRN PO ANXIETY 01/26/21 16:15 01/26/21 18:01 DC 01/26/21 17:50 Memantine (Namenda) 10 mg DAILY PO 01/27/21 09:00 01/29/21 18:45 DC 01/29/21 08:41 Phenytoin Sodium (Dilantin) 100 mg QHS PO 01/26/21 21:00 01/31/21 23:00 DC 01/31/21 21:06 Quetiapine Fumarate (SEROquel) 25 mg BID PO 01/26/21 21:00 01/29/21 18:45 DC 01/29/21 08:41 Acetaminophen (Tylenol) 650 mg PRN Q6HRS PRN PO MILD PAIN / TEMP > 100.3'F 01/26/21 16:30 02/20/21 05:55 Multi-Ingredient Ointment (Analgesic [place]) 1 david PRN QID PRN TP MUSCLE PAIN 01/26/21 16:30 Al Hydroxide/Mg Hydroxide (Mylanta Plus Xs) 15 ml PRN AFTMEALHC PRN PO DYSPEPSIA 01/26/21 16:30 Magnesium Hydroxide (Milk Of Magnesia) 2,400 mg PRN QHS PRN PO CONSTIPATION 01/26/21 16:30 02/22/21 20:19 Olanzapine (ZyPREXA ZYDIS) 1.25 mg PRN Q2HR PRN PO PSYCHOSIS 01/26/21 18:00 01/28/21 23:35 DC 01/28/21 22:02 Divalproex Sodium (Depakote Sprinkles) 250 mg BID PO 01/26/21 21:00 02/15/21 16:00 DC 02/15/21 08:22 Olanzapine (ZyPREXA ZYDIS) 2.5 mg PRN Q2HR PRN PO PSYCHOSIS 01/28/21 23:45 02/27/21 09:25 Trazodone HCl (Desyrel) 50 mg PRN QHS PRN PO INSOMNIA, MAY REPEAT X1 01/28/21 23:45 02/16/21 19:19 Quetiapine Fumarate (SEROquel) 25 mg 0900,1300,1700 PO 01/29/21 19:00 01/30/21 19:36 DC 01/30/21 17:25 Sertraline HCl (Zoloft) 25 mg DAILY PO 01/30/21 09:00 02/01/21 21:00 DC 02/01/21 08:35 Vitamin D (Vitamin D3) 50,000 unit WEEKLY PO 01/30/21 14:15 02/27/21 08:33 Quetiapine Fumarate (SEROquel) 37.5 mg 0900,1300,1700 PO 01/31/21 09:00 02/02/21 16:33 DC 02/02/21 12:41 Sertraline HCl (Zoloft) 50 mg DAILY PO 02/02/21 09:00 02/27/21 08:33 Tamsulosin HCl (Flomax) 0.4 mg QHS PO 01/31/21 21:00 02/27/21 20:03 Quetiapine Fumarate (SEROquel) 50 mg 0900,1200 PO 02/03/21 09:00 02/05/21 18:41 DC 02/05/21 12:49 Quetiapine Fumarate (SEROquel) 25 mg QHS PO 02/02/21 21:00 02/15/21 16:00 DC 02/14/21 20:11 Quetiapine Fumarate (SEROquel) 25 mg DAILY@1700 PO 02/03/21 18:00 02/05/21 18:41 DC 02/05/21 17:09 Ascorbic Acid (Vitamin C) 1,000 mg DAILY PO 02/05/21 09:00 02/26/21 08:07 Quetiapine Fumarate (SEROquel) 50 mg 0900,1300,1700 PO 02/06/21 09:00 02/15/21 16:00 DC 02/15/21 12:11 Cefdinir (Omnicef) 300 mg BID PO 02/11/21 21:00 02/19/21 22:00 DC 02/19/21 21:03 Lactobacillus Rhamnosus (Culturelle) 1 cap BID PO 02/14/21 09:00 02/27/21 20:03 Divalproex Sodium (Depakote Sprinkles) 500 mg HS PO 02/15/21 21:00 02/27/21 20:03 Quetiapine Fumarate (SEROquel) 100 mg QHS PO 02/15/21 21:00 02/27/21 20:03 Quetiapine Fumarate (SEROquel) 50 mg DAILY PO 02/16/21 09:00 02/27/21 08:33 Pseudoephedrine HCl (Sudafed 12-Hour) 240 mg DAILY PO 02/18/21 09:00 02/23/21 21:41 DC 02/23/21 08:30 Cetirizine HCl (ZyrTEC) 10 mg DAILY PO 02/18/21 09:00 02/26/21 08:07 Artificial Tears (Artificial Tears) 1 drop PRN Q2HRS PRN OU DRY EYE 02/20/21 16:30 02/20/21 18:28 DC Pseudoephedrine HCl (Sudafed 12-Hour) 120 mg PRN DAILY PRN PO CONGESTION 02/23/21 22:00 Levofloxacin (Levaquin) 250 mg Q24H PO 02/27/21 15:00 03/03/21 15:01 02/27/21 15:49 Current Medications Medications (Trade) Dose Ordered Sig/Rufus Route PRN Reason Start Time Stop Time Status Last Admin Dose Admin Levofloxacin (Levaquin) 250 mg Q24H PO 02/27/21 15:00 03/03/21 15:01 02/27/21 15:49 I have reviewed the current psychotropics carefully including drug interactions. Risk benefit ratio favors no change other than as noted in my dictated progress note. Diagnosis: Problems: (1) Major neurocognitive disorder (2) Impulse control disorder, unspecified (3) Anxiety disorder, unspecified (4) Dementia, vascular, with depression (5) Dementia, vascular, with delusions (6) Dementia in Alzheimer's disease with depression (7) Dementia in Alzheimer's disease with delusions (8) Dementia of the Alzheimer's type with early onset with behavioral d isturbance JOSE MIGUEL MCGOWAN MD February 27, 2021 22:14
[2021-02-28] MEDS ORDERED: ACET325T21 PO (01:36)
[2021-02-28] MEDS ORDERED: ASCO100019 PO (01:37)
[2021-02-28] MEDS ORDERED: CETI10TA16 PO (01:37)
[2021-02-28] MEDS ORDERED: CHOL500021 PO (01:38)
[2021-02-28] MEDS ORDERED: DIVA125C2 PO (01:39)
[2021-02-28] MEDS ORDERED: LACT1CAP2 PO (01:39)
[2021-02-28] MEDS ORDERED: OLAN5TAB7 PO (01:41)
[2021-02-28] MEDS ORDERED: MAGN24003 PO (01:41)
[2021-02-28] MEDS ORDERED: METH57CR17 TP (01:41)
[2021-02-28] MEDS ORDERED: MAG-115 PO (01:41)
[2021-02-28] MEDS ORDERED: PSEU120T58 PO (01:43)
[2021-02-28] MEDS ORDERED: QUET100T4 PO (01:43)
[2021-02-28] MEDS ORDERED: SERT50TA PO (01:45)
[2021-02-28] MEDS ORDERED: QUET50TA5 PO (01:45)
[2021-02-28] MEDS ORDERED: TRAZ-120 PO (01:46)
[2021-02-28] MEDS ORDERED: TAMS0.4C97 PO (01:46)
[2021-02-28] MEDS ORDERED: LEVO250T7 PO (01:55)
--- NOTE | 2021-02-28 03:07 | NUR ---
Pt sitting in day room when approached. Pt calm, confused, and disorganized. Pt cooperative with assessment and compliant with medications administered crushed in pudding.
[2021-02-28 06:28] VITALS: BP 99/64
--- NOTE | 2021-02-28 06:58 | PDOC ---
Exam Note: Tristan Note: This note is a late entry for 02/27/2021 covers elements not covered in my initial note. Subjective: The patient was seen individually in the evening of 02/27/2021 with Ish BUTLER, discussed and reviewed the chart. The patient slept 7 hours previous night. She is compliant with medications, confused, takes meds in Glucerna. She has been retaining urine. We will defer to Dr. Romeo. She does have UTI. Started on Levaquin. Review of Systems: No CV, , pulmonary, eye, ENT system symptoms on review. Reliability poor. Mental Status Exam: The patient is oriented to herself. Insight and judgment, recent and remote memory, attention and concentration, fund of knowledge is poor consistent with her diagnoses. Laboratory Data: Reviewed. Impression: Major neurocognitive disorder Alzheimer vascular with delusion, depression, and behavioral disturbance. Anxiety disorder unspecified. Impulse control disorder unspecified. Plan: Continue current psychotropics from initial note. Assessment: Vital Signs/I&O: Vital Signs Date Time Temp Pulse Resp B/P (MAP) Pulse Ox O2 Delivery O2 Flow Rate FiO2 02/28/21 06:28 97.4 87 20 99/64 (76) 94 Room Air I & O 02/27/21 02/27/21 02/28/21 15:00 23:00 07:00 Intake Total 660 ml 900 ml 120 ml Balance 660 ml 900 ml 120 ml Current Medications: Meds: Current Medications Medications (Trade) Dose Ordered Sig/Rufus Route PRN Reason Start Time Stop Time Status Last Admin Dose Admin Divalproex Sodium (Depakote Er) 250 mg BID PO 01/26/21 21:00 01/26/21 19:08 DC Donepezil HCl (Aricept) 10 mg DAILY PO 01/27/21 09:00 01/29/21 18:45 DC 01/29/21 08:42 Acetaminophen/ Hydrocodone Bitart (Lortab 10/325) 1 tab PRN BID PRN PO MODERATE TO SEVERE PAIN 01/26/21 16:15 02/14/21 10:23 Lorazepam (Ativan) 0.5 mg PRN TID PRN PO ANXIETY 01/26/21 16:15 01/26/21 18:01 DC 01/26/21 17:50 Memantine (Namenda) 10 mg DAILY PO 01/27/21 09:00 01/29/21 18:45 DC 01/29/21 08:41 Phenytoin Sodium (Dilantin) 100 mg QHS PO 01/26/21 21:00 01/31/21 23:00 DC 01/31/21 21:06 Quetiapine Fumarate (SEROquel) 25 mg BID PO 01/26/21 21:00 01/29/21 18:45 DC 01/29/21 08:41 Acetaminophen (Tylenol) 650 mg PRN Q6HRS PRN PO MILD PAIN / TEMP > 100.3'F 01/26/21 16:30 02/20/21 05:55 Multi-Ingredient Ointment (Analgesic [place]) 1 david PRN QID PRN TP MUSCLE PAIN 01/26/21 16:30 Al Hydroxide/Mg Hydroxide (Mylanta Plus Xs) 15 ml PRN AFTMEALHC PRN PO DYSPEPSIA 01/26/21 16:30 Magnesium Hydroxide (Milk Of Magnesia) 2,400 mg PRN QHS PRN PO CONSTIPATION 01/26/21 16:30 02/22/21 20:19 Olanzapine (ZyPREXA ZYDIS) 1.25 mg PRN Q2HR PRN PO PSYCHOSIS 01/26/21 18:00 01/28/21 23:35 DC 01/28/21 22:02 Divalproex Sodium (Depakote Sprinkles) 250 mg BID PO 01/26/21 21:00 02/15/21 16:00 DC 02/15/21 08:22 Olanzapine (ZyPREXA ZYDIS) 2.5 mg PRN Q2HR PRN PO PSYCHOSIS 01/28/21 23:45 02/27/21 09:25 Trazodone HCl (Desyrel) 50 mg PRN QHS PRN PO INSOMNIA, MAY REPEAT X1 01/28/21 23:45 02/16/21 19:19 Quetiapine Fumarate (SEROquel) 25 mg 0900,1300,1700 PO 01/29/21 19:00 01/30/21 19:36 DC 01/30/21 17:25 Sertraline HCl (Zoloft) 25 mg DAILY PO 01/30/21 09:00 02/01/21 21:00 DC 02/01/21 08:35 Vitamin D (Vitamin D3) 50,000 unit WEEKLY PO 01/30/21 14:15 02/27/21 08:33 Quetiapine Fumarate (SEROquel) 37.5 mg 0900,1300,1700 PO 01/31/21 09:00 02/02/21 16:33 DC 02/02/21 12:41 Sertraline HCl (Zoloft) 50 mg DAILY PO 02/02/21 09:00 02/27/21 08:33 Tamsulosin HCl (Flomax) 0.4 mg QHS PO 01/31/21 21:00 02/27/21 20:03 Quetiapine Fumarate (SEROquel) 50 mg 0900,1200 PO 02/03/21 09:00 02/05/21 18:41 DC 02/05/21 12:49 Quetiapine Fumarate (SEROquel) 25 mg QHS PO 02/02/21 21:00 02/15/21 16:00 DC 02/14/21 20:11 Quetiapine Fumarate (SEROquel) 25 mg DAILY@1700 PO 02/03/21 18:00 02/05/21 18:41 DC 02/05/21 17:09 Ascorbic Acid (Vitamin C) 1,000 mg DAILY PO 02/05/21 09:00 02/26/21 08:07 Quetiapine Fumarate (SEROquel) 50 mg 0900,1300,1700 PO 02/06/21 09:00 02/15/21 16:00 DC 02/15/21 12:11 Cefdinir (Omnicef) 300 mg BID PO 02/11/21 21:00 02/19/21 22:00 DC 02/19/21 21:03 Lactobacillus Rhamnosus (Culturelle) 1 cap BID PO 02/14/21 09:00 02/27/21 20:03 Divalproex Sodium (Depakote Sprinkles) 500 mg HS PO 02/15/21 21:00 02/27/21 20:03 Quetiapine Fumarate (SEROquel) 100 mg QHS PO 02/15/21 21:00 02/27/21 20:03 Quetiapine Fumarate (SEROquel) 50 mg DAILY PO 02/16/21 09:00 02/27/21 08:33 Pseudoephedrine HCl (Sudafed 12-Hour) 240 mg DAILY PO 02/18/21 09:00 02/23/21 21:41 DC 02/23/21 08:30 Cetirizine HCl (ZyrTEC) 10 mg DAILY PO 02/18/21 09:00 02/26/21 08:07 Artificial Tears (Artificial Tears) 1 drop PRN Q2HRS PRN OU DRY EYE 02/20/21 16:30 02/20/21 18:28 DC Pseudoephedrine HCl (Sudafed 12-Hour) 120 mg PRN DAILY PRN PO CONGESTION 02/23/21 22:00 Levofloxacin (Levaquin) 250 mg Q24H PO 02/27/21 15:00 03/03/21 15:01 02/27/21 15:49 Current Medications Medications (Trade) Dose Ordered Sig/Rufus Route PRN Reason Start Time Stop Time Status Last Admin Dose Admin Levofloxacin (Levaquin) 250 mg Q24H PO 02/27/21 15:00 03/03/21 15:01 02/27/21 15:49 I have reviewed the current psychotropics carefully including drug interactions. Risk benefit ratio favors no change other than as noted in my dictated progress note. Diagnosis: Problems: (1) Major neurocognitive disorder (2) Impulse control disorder, unspecified (3) Anxiety disorder, unspecified (4) Dementia, vascular, with depression (5) Dementia, vascular, with delusions (6) Dementia in Alzheimer's disease with depression (7) Dementia in Alzheimer's disease with delusions (8) Dementia of the Alzheimer's type with early onset with behavioral disturbance JOSE MIGUEL MCGOWAN MD February 28, 2021 06:58
[2021-02-28] MEDS: CETIRIZINE HCL 10 MG TABLET PO SCH (08:44)
[2021-02-28] MEDS: ASCORBIC ACID 1,000 MG TABLET PO SCH (08:44)
[2021-02-28] MEDS: QUEtiapine 50 MG TABLET. PO SCH (08:44)
[2021-02-28] MEDS: SERTRALINE 50 MG TABLET. PO SCH (08:44)
[2021-02-28] MEDS: LACTOBACILLUS RHAMNOSUS GG 1 CAPSULE. PO SCH ×2 (08:44→20:19)
[2021-02-28] MEDS: levoFLOXacin 250 MG TABLET PO SCH (14:52)
--- NOTE | 2021-02-28 14:59 | NUR ---
SW contacted Adult Protective Services and spoke with Mariya to file a concern about Jillian's safety when she discharges to home with spouse on 03/01/21. APS report number is [id number]. Per [employer] program manager at [place] who is handling bundled payment care improvement, it should be noted that Jillian is a high risk for readmission due to unsafe discharge plan.
[2021-02-28 15:58] VITALS: BP 104/72
--- NOTE | 2021-02-28 18:18 | NUR ---
Patient continues to wander the unit very disorganized word salad, ambulates independently, non-compliant with medications and uncooperative with cares. Patient required redirection when going into others rooms using the restroom or lying in their beds. Patient appetite not too good she eats small bites or a bite or two then she is up moving around. Vitals wnl of baseline and stable will continue to monitor patient.
[2021-02-28] MEDS: QUEtiapine 100 MG TABLET. PO SCH (20:18)
[2021-02-28] MEDS: TAMSULOSIN 0.4 MG CAP.ER.24H. PO SCH (20:19)
[2021-02-28] MEDS: DIVALPROEX 125 MG CAP.SPRINK PO SCH (20:19)
--- NOTE | 2021-02-28 22:08 | PDOC ---
Exam Note: Tristan Note: Please also refer to the separate dictated note~for this date of service dictated separately.~Patient seen individually. Discussed the patient with Nursing staff reviewed the chart.~Reviewed interim history and current functioning. Reviewed vital signs,~Labs/ Radiology~and current medications noted below. Continue current treatment with the changes noted in the dictated addendum note Assessment: Vital Signs/I&O: Vital Signs Date Time Temp Pulse Resp B/P (MAP) Pulse Ox O2 Delivery O2 Flow Rate FiO2 02/28/21 15:58 98.0 83 18 104/72 (83) 97 02/28/21 06:28 Room Air I & O 02/27/21 02/27/21 02/28/21 14:59 22:59 06:59 Intake Total 660 ml 900 ml 120 ml Balance 660 ml 900 ml 120 ml Current Medications: Meds: Current Medications Medications (Trade) Dose Ordered Sig/Rufus Route PRN Reason Start Time Stop Time Status Last Admin Dose Admin Divalproex Sodium (Depakote Er) 250 mg BID PO 01/26/21 21:00 01/26/21 19:08 DC Donepezil HCl (Aricept) 10 mg DAILY PO 01/27/21 09:00 01/29/21 18:45 DC 01/29/21 08:42 Acetaminophen/ Hydrocodone Bitart (Lortab 10/325) 1 tab PRN BID PRN PO MODERATE TO SEVERE PAIN 01/26/21 16:15 02/14/21 10:23 Lorazepam (Ativan) 0.5 mg PRN TID PRN PO ANXIETY 01/26/21 16:15 01/26/21 18:01 DC 01/26/21 17:50 Memantine (Namenda) 10 mg DAILY PO 01/27/21 09:00 01/29/21 18:45 DC 01/29/21 08:41 Phenytoin Sodium (Dilantin) 100 mg QHS PO 01/26/21 21:00 01/31/21 23:00 DC 01/31/21 21:06 Quetiapine Fumarate (SEROquel) 25 mg BID PO 01/26/21 21:00 01/29/21 18:45 DC 01/29/21 08:41 Acetaminophen (Tylenol) 650 mg PRN Q6HRS PRN PO MILD PAIN / TEMP > 100.3'F 01/26/21 16:30 02/20/21 05:55 Multi-Ingredient Ointment (Analgesic [place]) 1 david PRN QID PRN TP MUSCLE PAIN 01/26/21 16:30 Al Hydroxide/Mg Hydroxide (Mylanta Plus Xs) 15 ml PRN AFTMEALHC PRN PO DYSPEPSIA 01/26/21 16:30 Magnesium Hydroxide (Milk Of Magnesia) 2,400 mg PRN QHS PRN PO CONSTIPATION 01/26/21 16:30 02/22/21 20:19 Olanzapine (ZyPREXA ZYDIS) 1.25 mg PRN Q2HR PRN PO PSYCHOSIS 01/26/21 18:00 01/28/21 23:35 DC 01/28/21 22:02 Divalproex Sodium (Depakote Sprinkles) 250 mg BID PO 01/26/21 21:00 02/15/21 16:00 DC 02/15/21 08:22 Olanzapine (ZyPREXA ZYDIS) 2.5 mg PRN Q2HR PRN PO PSYCHOSIS 01/28/21 23:45 02/27/21 09:25 Trazodone HCl (Desyrel) 50 mg PRN QHS PRN PO INSOMNIA, MAY REPEAT X1 01/28/21 23:45 02/16/21 19:19 Quetiapine Fumarate (SEROquel) 25 mg 0900,1300,1700 PO 01/29/21 19:00 01/30/21 19:36 DC 01/30/21 17:25 Sertraline HCl (Zoloft) 25 mg DAILY PO 01/30/21 09:00 02/01/21 21:00 DC 02/01/21 08:35 Vitamin D (Vitamin D3) 50,000 unit WEEKLY PO 01/30/21 14:15 02/27/21 08:33 Quetiapine Fumarate (SEROquel) 37.5 mg 0900,1300,1700 PO 01/31/21 09:00 02/02/21 16:33 DC 02/02/21 12:41 Sertraline HCl (Zoloft) 50 mg DAILY PO 02/02/21 09:00 02/28/21 08:44 Tamsulosin HCl (Flomax) 0.4 mg QHS PO 01/31/21 21:00 02/28/21 20:19 Quetiapine Fumarate (SEROquel) 50 mg 0900,1200 PO 02/03/21 09:00 02/05/21 18:41 DC 02/05/21 12:49 Quetiapine Fumarate (SEROquel) 25 mg QHS PO 02/02/21 21:00 02/15/21 16:00 DC 02/14/21 20:11 Quetiapine Fumarate (SEROquel) 25 mg DAILY@1700 PO 02/03/21 18:00 02/05/21 18:41 DC 02/05/21 17:09 Ascorbic Acid (Vitamin C) 1,000 mg DAILY PO 02/05/21 09:00 02/28/21 08:44 Quetiapine Fumarate (SEROquel) 50 mg 0900,1300,1700 PO 02/06/21 09:00 02/15/21 16:00 DC 02/15/21 12:11 Cefdinir (Omnicef) 300 mg BID PO 02/11/21 21:00 02/19/21 22:00 DC 02/19/21 21:03 Lactobacillus Rhamnosus (Culturelle) 1 cap BID PO 02/14/21 09:00 02/28/21 20:19 Divalproex Sodium (Depakote Sprinkles) 500 mg HS PO 02/15/21 21:00 02/28/21 20:19 Quetiapine Fumarate (SEROquel) 100 mg QHS PO 02/15/21 21:00 02/28/21 20:18 Quetiapine Fumarate (SEROquel) 50 mg DAILY PO 02/16/21 09:00 02/28/21 08:44 Pseudoephedrine HCl (Sudafed 12-Hour) 240 mg DAILY PO 02/18/21 09:00 02/23/21 21:41 DC 02/23/21 08:30 Cetirizine HCl (ZyrTEC) 10 mg DAILY PO 02/18/21 09:00 02/28/21 08:44 Artificial Tears (Artificial Tears) 1 drop PRN Q2HRS PRN OU DRY EYE 02/20/21 16:30 02/20/21 18:28 DC Pseudoephedrine HCl (Sudafed 12-Hour) 120 mg PRN DAILY PRN PO CONGESTION 02/23/21 22:00 Levofloxacin (Levaquin) 250 mg Q24H PO 02/27/21 15:00 03/03/21 15:01 02/28/21 14:52 I have reviewed the current psychotropics carefully including drug interactions. Risk benefit ratio favors no change other than as noted in my dictated progress note. Diagnosis: Problems: (1) Major neurocognitive disorder (2) Impulse control disorder, unspecified (3) Anxiety disorder, unspecified (4) Dementia, vascular, with depression (5) Dementia, vascular, with delusions (6) Dementia in Alzheimer's disease with depression (7) Dementia in Alzheimer's disease with delusions (8) Dementia of the Alzheimer's type with early onset with behavioral disturbance JOSE MIGUEL MCGOWAN MD February 28, 2021 22:08
--- NOTE | 2021-02-28 22:59 | NUR ---
Pt sitting in the day room when approached. Pt mostly calm, confused, and disorganized, speaking in word salad with difficulty expressing her needs. Pt cooperative with assessment and compliant with medications administered crushed in pudding.
[2021-03-01 06:18] VITALS: BP 124/68
[2021-03-01] MEDS: SERTRALINE 50 MG TABLET. PO SCH (08:27)
[2021-03-01] MEDS: QUEtiapine 50 MG TABLET. PO SCH (08:27)
[2021-03-01] MEDS: CETIRIZINE HCL 10 MG TABLET PO SCH (08:27)
[2021-03-01] MEDS: ASCORBIC ACID 1,000 MG TABLET PO SCH (08:27)
[2021-03-01] MEDS: LACTOBACILLUS RHAMNOSUS GG 1 CAPSULE. PO SCH (08:27)
--- NOTE | 2021-03-01 08:43 | NUR ---
Pt is labile, confused, disorganized, and delusional this shift. She talks in word salad, mostly to herself, with occasional periods of yelling. She is absent of SI/HI behaviors, PAINAD score 0. She is compliant with medications crushed and mixed in chocolate ensure. Plan of care continues, preparing for d/c.
--- NOTE | 2021-03-01 10:33 | PDOC ---
Exam Note: Tristan Note: This note is a late entry for 02/28/2021 covers elements not covered in my initial note. Subjective: The patient was seen individually in the evening of 02/28/2021 with Edgar BUTLER, discussed and reviewed the chart. The patient slept 7-1/4 hours previous night. She has been confused, wandering the hallway, redirectable, compliant with medications. Review of Systems: No CV, , pulmonary, eye, ENT system symptoms on review. Mental Status Exam: The patient is oriented to herself. Insight and judgment, recent and remote memory, attention and concentration, fund of knowledge is poor consistent with her diagnoses. Laboratory Data: Reviewed. Impression: Major neurocognitive disorder Alzheimer vascular with delusion, depression, and behavioral disturbance. Anxiety disorder unspecified. Impulse control disorder unspecified. Plan: Continue current psychotropics from initial note. Assessment: Vital Signs/I&O: Vital Signs Date Time Temp Pulse Resp B/P (MAP) Pulse Ox O2 Delivery O2 Flow Rate FiO2 03/01/21 06:18 97.2 76 18 124/68 (86) 94 02/28/21 06:28 Room Air I & O 02/28/21 02/28/21 03/01/21 15:00 23:00 07:00 Intake Total 560 ml 240 ml 0 ml Balance 560 ml 240 ml 0 ml Current Medications: Meds: Current Medications Medications (Trade) Dose Ordered Sig/Rufus Route PRN Reason Start Time Stop Time Status Last Admin Dose Admin Divalproex Sodium (Depakote Er) 250 mg BID PO 01/26/21 21:00 01/26/21 19:08 DC Donepezil HCl (Aricept) 10 mg DAILY PO 01/27/21 09:00 01/29/21 18:45 DC 01/29/21 08:42 Acetaminophen/ Hydrocodone Bitart (Lortab 10/325) 1 tab PRN BID PRN PO MODERATE TO SEVERE PAIN 01/26/21 16:15 02/14/21 10:23 Lorazepam (Ativan) 0.5 mg PRN TID PRN PO ANXIETY 01/26/21 16:15 01/26/21 18:01 DC 01/26/21 17:50 Memantine (Namenda) 10 mg DAILY PO 01/27/21 09:00 01/29/21 18:45 DC 01/29/21 08:41 Phenytoin Sodium (Dilantin) 100 mg QHS PO 01/26/21 21:00 01/31/21 23:00 DC 01/31/21 21:06 Quetiapine Fumarate (SEROquel) 25 mg BID PO 01/26/21 21:00 01/29/21 18:45 DC 01/29/21 08:41 Acetaminophen (Tylenol) 650 mg PRN Q6HRS PRN PO MILD PAIN / TEMP > 100.3'F 01/26/21 16:30 02/20/21 05:55 Multi-Ingredient Ointment (Analgesic [place]) 1 david PRN QID PRN TP MUSCLE PAIN 01/26/21 16:30 Al Hydroxide/Mg Hydroxide (Mylanta Plus Xs) 15 ml PRN AFTMEALHC PRN PO DYSPEPSIA 01/26/21 16:30 Magnesium Hydroxide (Milk Of Magnesia) 2,400 mg PRN QHS PRN PO CONSTIPATION 01/26/21 16:30 02/22/21 20:19 Olanzapine (ZyPREXA ZYDIS) 1.25 mg PRN Q2HR PRN PO PSYCHOSIS 01/26/21 18:00 01/28/21 23:35 DC 01/28/21 22:02 Divalproex Sodium (Depakote Sprinkles) 250 mg BID PO 01/26/21 21:00 02/15/21 16:00 DC 02/15/21 08:22 Olanzapine (ZyPREXA ZYDIS) 2.5 mg PRN Q2HR PRN PO PSYCHOSIS 01/28/21 23:45 02/27/21 09:25 Trazodone HCl (Desyrel) 50 mg PRN QHS PRN PO INSOMNIA, MAY REPEAT X1 01/28/21 23:45 02/16/21 19:19 Quetiapine Fumarate (SEROquel) 25 mg 0900,1300,1700 PO 01/29/21 19:00 01/30/21 19:36 DC 01/30/21 17:25 Sertraline HCl (Zoloft) 25 mg DAILY PO 01/30/21 09:00 02/01/21 21:00 DC 02/01/21 08:35 Vitamin D (Vitamin D3) 50,000 unit WEEKLY PO 01/30/21 14:15 02/27/21 08:33 Quetiapine Fumarate (SEROquel) 37.5 mg 0900,1300,1700 PO 01/31/21 09:00 02/02/21 16:33 DC 02/02/21 12:41 Sertraline HCl (Zoloft) 50 mg DAILY PO 02/02/21 09:00 03/01/21 08:27 Tamsulosin HCl (Flomax) 0.4 mg QHS PO 01/31/21 21:00 02/28/21 20:19 Quetiapine Fumarate (SEROquel) 50 mg 0900,1200 PO 02/03/21 09:00 02/05/21 18:41 DC 02/05/21 12:49 Quetiapine Fumarate (SEROquel) 25 mg QHS PO 02/02/21 21:00 02/15/21 16:00 DC 02/14/21 20:11 Quetiapine Fumarate (SEROquel) 25 mg DAILY@1700 PO 02/03/21 18:00 02/05/21 18:41 DC 02/05/21 17:09 Ascorbic Acid (Vitamin C) 1,000 mg DAILY PO 02/05/21 09:00 03/01/21 08:27 Quetiapine Fumarate (SEROquel) 50 mg 0900,1300,1700 PO 02/06/21 09:00 02/15/21 16:00 DC 02/15/21 12:11 Cefdinir (Omnicef) 300 mg BID PO 02/11/21 21:00 02/19/21 22:00 DC 02/19/21 21:03 Lactobacillus Rhamnosus (Culturelle) 1 cap BID PO 02/14/21 09:00 03/01/21 08:27 Divalproex Sodium (Depakote Sprinkles) 500 mg HS PO 02/15/21 21:00 02/28/21 20:19 Quetiapine Fumarate (SEROquel) 100 mg QHS PO 02/15/21 21:00 02/28/21 20:18 Quetiapine Fumarate (SEROquel) 50 mg DAILY PO 02/16/21 09:00 03/01/21 08:27 Pseudoephedrine HCl (Sudafed 12-Hour) 240 mg DAILY PO 02/18/21 09:00 02/23/21 21:41 DC 02/23/21 08:30 Cetirizine HCl (ZyrTEC) 10 mg DAILY PO 02/18/21 09:00 03/01/21 08:27 Artificial Tears (Artificial Tears) 1 drop PRN Q2HRS PRN OU DRY EYE 02/20/21 16:30 02/20/21 18:28 DC Pseudoephedrine HCl (Sudafed 12-Hour) 120 mg PRN DAILY PRN PO CONGESTION 02/23/21 22:00 Levofloxacin (Levaquin) 250 mg Q24H PO 02/27/21 15:00 03/03/21 15:01 02/28/21 14:52 I have reviewed the current psychotropics carefully including drug interactions. Risk benefit ratio favors no change other than as noted in my dictated progress note. Diagnosis: Problems: (1) Major neurocognitive disorder (2) Impulse control disorder, unspecified (3) Anxiety disorder, unspecified (4) Dementia, vascular, with depression (5) Dementia, vascular, with delusions (6) Dementia in Alzheimer's disease with depression (7) Dementia in Alzheimer's disease with delusions (8) Dementia of the Alzheimer's type with early onset with behavioral disturbance JOSE MIGUEL MCGOWAN MD March 01, 2021 10:32
[2021-03-01] MEDS: levoFLOXacin 250 MG TABLET PO SCH (15:00)
--- NOTE | 2021-03-01 15:52 | NUR ---
Transition Record was faxed to follow-up provider with the following elements: Reason for admission, procedures, tests, principal diagnosis, pending studies, patient instructions, 27/04 contact information for unit, phone number to obtain pending test results, plan for follow-up care, physician follow-up, advanced directive information, and medication list with dose, duration and instructions. This information was included in the following documents: History and physical, lab results, study results, progress notes, social work planning form, DC instruction form, patient visit summary, and medication reconciliation form. Date & time record faxed:02/28/21 Record faxed to: Dr Kamara, fax [phone] phone [phone] Record discussed with/ report given to: /DPOA
--- NOTE | 2021-03-01 21:58 | PDOC ---
Exam Note: Tristan Note: Please also refer to the separate dictated note~for this date of service dictated separately.~Patient seen individually. Discussed the patient with Nursing staff reviewed the chart.~Reviewed interim history and current functioning. Reviewed vital signs,~Labs/ Radiology~and current medications noted below. Continue current treatment with the changes noted in the dictated addendum note Assessment: Vital Signs/I&O: Vital Signs Date Time Temp Pulse Resp B/P (MAP) Pulse Ox O2 Delivery O2 Flow Rate FiO2 03/01/21 06:18 97.2 76 18 124/68 (86) 94 02/28/21 06:28 Room Air I & O 02/28/21 02/28/21 03/01/21 15:00 23:00 07:00 Intake Total 560 ml 240 ml 0 ml Balance 560 ml 240 ml 0 ml Current Medications: Meds: Current Medications Medications (Trade) Dose Ordered Sig/Rufus Route PRN Reason Start Time Stop Time Status Last Admin Dose Admin Divalproex Sodium (Depakote Er) 250 mg BID PO 01/26/21 21:00 01/26/21 19:08 DC Donepezil HCl (Aricept) 10 mg DAILY PO 01/27/21 09:00 01/29/21 18:45 DC 01/29/21 08:42 Acetaminophen/ Hydrocodone Bitart (Lortab 10/325) 1 tab PRN BID PRN PO MODERATE TO SEVERE PAIN 01/26/21 16:15 03/01/21 15:54 DC 02/14/21 10:23 Lorazepam (Ativan) 0.5 mg PRN TID PRN PO ANXIETY 01/26/21 16:15 01/26/21 18:01 DC 01/26/21 17:50 Memantine (Namenda) 10 mg DAILY PO 01/27/21 09:00 01/29/21 18:45 DC 01/29/21 08:41 Phenytoin Sodium (Dilantin) 100 mg QHS PO 01/26/21 21:00 01/31/21 23:00 DC 01/31/21 21:06 Quetiapine Fumarate (SEROquel) 25 mg BID PO 01/26/21 21:00 01/29/21 18:45 DC 01/29/21 08:41 Acetaminophen (Tylenol) 650 mg PRN Q6HRS PRN PO MILD PAIN / TEMP > 100.3'F 01/26/21 16:30 03/01/21 15:54 DC 02/20/21 05:55 Multi-Ingredient Ointment (Analgesic [place]) 1 david PRN QID PRN TP MUSCLE PAIN 01/26/21 16:30 03/01/21 15:54 DC Al Hydroxide/Mg Hydroxide (Mylanta Plus Xs) 15 ml PRN AFTMEALHC PRN PO DYSPEPSIA 01/26/21 16:30 03/01/21 15:54 DC Magnesium Hydroxide (Milk Of Magnesia) 2,400 mg PRN QHS PRN PO CONSTIPATION 01/26/21 16:30 03/01/21 15:54 DC 02/22/21 20:19 Olanzapine (ZyPREXA ZYDIS) 1.25 mg PRN Q2HR PRN PO PSYCHOSIS 01/26/21 18:00 01/28/21 23:35 DC 01/28/21 22:02 Divalproex Sodium (Depakote Sprinkles) 250 mg BID PO 01/26/21 21:00 02/15/21 16:00 DC 02/15/21 08:22 Olanzapine (ZyPREXA ZYDIS) 2.5 mg PRN Q2HR PRN PO PSYCHOSIS 01/28/21 23:45 03/01/21 15:54 DC 02/27/21 09:25 Trazodone HCl (Desyrel) 50 mg PRN QHS PRN PO INSOMNIA, MAY REPEAT X1 01/28/21 23:45 03/01/21 15:54 DC 02/16/21 19:19 Quetiapine Fumarate (SEROquel) 25 mg 0900,1300,1700 PO 01/29/21 19:00 01/30/21 19:36 DC 01/30/21 17:25 Sertraline HCl (Zoloft) 25 mg DAILY PO 01/30/21 09:00 02/01/21 21:00 DC 02/01/21 08:35 Vitamin D (Vitamin D3) 50,000 unit WEEKLY PO 01/30/21 14:15 03/01/21 15:54 DC 02/27/21 08:33 Quetiapine Fumarate (SEROquel) 37.5 mg 0900,1300,1700 PO 01/31/21 09:00 02/02/21 16:33 DC 02/02/21 12:41 Sertraline HCl (Zoloft) 50 mg DAILY PO 02/02/21 09:00 03/01/21 15:55 DC 03/01/21 08:27 Tamsulosin HCl (Flomax) 0.4 mg QHS PO 01/31/21 21:00 03/01/21 15:55 DC 02/28/21 20:19 Quetiapine Fumarate (SEROquel) 50 mg 0900,1200 PO 02/03/21 09:00 02/05/21 18:41 DC 02/05/21 12:49 Quetiapine Fumarate (SEROquel) 25 mg QHS PO 02/02/21 21:00 02/15/21 16:00 DC 02/14/21 20:11 Quetiapine Fumarate (SEROquel) 25 mg DAILY@1700 PO 02/03/21 18:00 02/05/21 18:41 DC 02/05/21 17:09 Ascorbic Acid (Vitamin C) 1,000 mg DAILY PO 02/05/21 09:00 03/01/21 15:55 DC 03/01/21 08:27 Quetiapine Fumarate (SEROquel) 50 mg 0900,1300,1700 PO 02/06/21 09:00 02/15/21 16:00 DC 02/15/21 12:11 Cefdinir (Omnicef) 300 mg BID PO 02/11/21 21:00 02/19/21 22:00 DC 02/19/21 21:03 Lactobacillus Rhamnosus (Culturelle) 1 cap BID PO 02/14/21 09:00 03/01/21 15:55 DC 03/01/21 08:27 Divalproex Sodium (Depakote Sprinkles) 500 mg HS PO 02/15/21 21:00 03/01/21 15:55 DC 02/28/21 20:19 Quetiapine Fumarate (SEROquel) 100 mg QHS PO 02/15/21 21:00 03/01/21 15:55 DC 02/28/21 20:18 Quetiapine Fumarate (SEROquel) 50 mg DAILY PO 02/16/21 09:00 03/01/21 15:55 DC 03/01/21 08:27 Pseudoephedrine HCl (Sudafed 12-Hour) 240 mg DAILY PO 02/18/21 09:00 02/23/21 21:41 DC 02/23/21 08:30 Cetirizine HCl (ZyrTEC) 10 mg DAILY PO 02/18/21 09:00 03/01/21 15:55 DC 03/01/21 08:27 Artificial Tears (Artificial Tears) 1 drop PRN Q2HRS PRN OU DRY EYE 02/20/21 16:30 02/20/21 18:28 DC Pseudoephedrine HCl (Sudafed 12-Hour) 120 mg PRN DAILY PRN PO CONGESTION 02/23/21 22:00 03/01/21 15:55 DC Levofloxacin (Levaquin) 250 mg Q24H PO 02/27/21 15:00 03/01/21 15:55 DC 03/01/21 15:00 I have reviewed the current psychotropics carefully including drug interactions. Risk benefit ratio favors no change other than as noted in my dictated progress note. Diagnosis: Problems: (1) Major neurocognitive disorder (2) Impulse control disorder, unspecified (3) Anxiety disorder, unspecified (4) Dementia, vascular, with depression (5) Dementia, vascular, with delusions (6) Dementia in Alzheimer's disease with depression (7) Dementia in Alzheimer's disease with delusions (8) Dementia of the Alzheimer's type with early onset with behavioral disturbance JOSE MIGUEL MCGOWAN MD March 01, 2021 21:58
--- NOTE | 2021-03-03 00:12 | DS ---
DATE OF DISCHARGE: 03/01/2021 DISCHARGE SUMMARY/PSYCHIATRIC PROGRESS NOTE This late entry date of service 03/01/2021, covers elements not covered in my initial note of 03/01/2021. REASON FOR ADMISSION: Please refer to the admission history for details. Briefly, the patient is a 74-year-old female referred to us from [facility] where she presented from [facility] on account of worsening confusion, combative, aggressive, not sleeping, verbally abusive with marked mood lability, wandering, eloped from the home. Police had to intervene with helicopters trying to find her. Reportedly per Social Service information, the patient is actively hallucinating, had multiple falls, had fallen down stairs multiple times. Behaviors were deemed dangerous, unmanageable at the home by her who still wants her to return home post stabilization. She was admitted for inpatient psychiatric stabilization. SIGNIFICANT FINDINGS AND CLINICAL COURSE: Following admission, the patient was seen daily individually by myself from a psychiatric standpoint, Medical followup, Dr. Wilson/Dr. Bolanos. The patient remained extremely confused, agitated, paranoid, restless, constantly moving oblivious of her surroundings. Adjustments were made in her psychotropics and she seemed to respond to a combination of Depakote sprinkles 500 mg p.o. at bedtime, level was 96 therapeutic, Seroquel 50 mg at 0900, 100 mg at bedtime. She was on Levaquin 250 mg p.o. daily for 5 days for her UTI. Zyprexa p.r.n., trazodone p.r.n., Zoloft 50 mg a day. Prior to discharge, 03/01/2021, no CV, , pulmonary, eye, ENT system symptoms on review. Reliability poor. MENTAL STATUS EXAM: Oriented to herself. Insight, judgment, recent and remote memory, attention, concentration, fund of knowledge poor consistent with her diagnosis. FINAL DIAGNOSES: Major neurocognitive disorder; Alzheimer, vascular with delusion; depression, behavioral disturbance; anxiety disorder, unspecified; impulse control disorder, unspecified; status post urinary tract infection. Rest unchanged from admission. DISCHARGE MEDICATIONS: Please refer to the [facility]AD. DISCHARGE INSTRUCTIONS: We had recommended halfway placement but her was adamant on having her home and social service staff did make a report to the Adult Protective Services. She will also need outpatient psychiatric care. Outpatient psychiatric and medical followup is arranged. Time for discharge day management greater than [address]: Sindhu TID: [id number]
== END 2021-03-01 15:50 | disposition home or self-care (01) | DRG 57 ==
LOC: GEROPSY 16:12
PROVIDERS: ADMIT Psychiatry & Neurology Psychiatry; ATTEND Psychiatry & Neurology Psychiatry
DX: G30.9 Alzheimer's disease, unspecified (principal); F02.81 Dementia in other diseases classified elsewhere, unspecified severity, with behavioral disturbance; N39.0 Urinary tract infection, site not specified; F01.51 Vascular dementia, unspecified severity, with behavioral disturbance; F32.9 Major depressive disorder, single episode, unspecified; F41.1 Generalized anxiety disorder; F63.9 Impulse disorder, unspecified; G40.909 Epilepsy, unspecified, not intractable, without status epilepticus; R29.6 Repeated falls; Z79.899 Other long term (current) drug therapy; Z91.83 Wandering in diseases classified elsewhere; W10.8XXA Fall (on) (from) other stairs and steps, initial encounter; Y93.89 Activity, other specified; Y92.89 Other specified places as the place of occurrence of the external cause; Y99.8 Other external cause status; Z20.822 Contact with and (suspected) exposure to COVID-19; Z85.831 Personal history of malignant neoplasm of soft tissue
CPT/HCPCS: 36415; 73030; 80053; 80061; 80164; 81001; 82306; 82607; 83036; 83540; 83550; 83735; 84436; 84443; 84480; 85025; 85379; 86592; 87077; 87086; 87186; U0003; U0005